=== PATIENT | male | born 1950 | race Caucasian/White ===

== ENCOUNTER 2017-12-22 09:52 | Outpatient (CLI) | payer MEDICARE ==
[2017-12-22 12:41] LABS: BASOPHILS % (AUTO) 0.9 %; EOSINOPHILS # (AUTO) 0.1 10^3/uL (0.0-0.7); EOSINOPHILS % (AUTO) 1.7 %; HGB - HEMOGLOBIN 15.4 g/dL (14.0-18.0); LYMPHOCYTES % (AUTO) 21.5 %; MEAN CORPUSCULAR HEMOGLOBIN 31.1 pg (27.0-31.0); MEAN CORPUSCULAR HGB CONC 34.1 g/dL (32.0-36.0); MEAN CORPUSCULAR VOLUME 91.1 fL (80.0-94.0); MEAN PLATELET VOLUME 8.4 fL (7.4-11.4); MONOCYTES # (AUTO) 0.3 10^3/uL (0.0-1.0); MONOCYTES % (AUTO) 6.9 %; NEUTROPHILS # (AUTO) 3.1 10^3/uL (1.5-6.6); PLT - PLATELET COUNT 185 10^3/uL (130-450); RED BLOOD COUNT 4.94 10^6/uL (4.70-6.10); WHITE BLOOD COUNT 4.6 x10^3/uL (4.8-10.8)
[2017-12-22 13:20] LABS: ALBUMIN 4.3 g/dL (3.2-5.5); ALBUMIN/GLOBULIN RATIO 1.6 (1.0-2.2); ALKALINE PHOSPHATASE 63 IU/L (42-121); ALT ALANINE AMINOTRANSFERASE 17 IU/L (10-60); AST ASPARTATE AMINOTRANSFERASE 26 IU/L (10-42); BUN - BLOOD UREA NITROGEN 11 mg/dL (6-20); CALCIUM 9.1 mg/dL (8.5-10.3); CARBON DIOXIDE - CO2 28 mmol/L (21-32); CHLORIDE 103 mmol/L (101-111); CHOL/HDL RATIO 3.7 (<5.0); CHOLESTEROL 186 mg/dL; CREATININE 0.9 mg/dL (0.6-1.2); GFR - MDRD 84 (>89); GLUCOSE 101 mg/dL (70-100); HDL CHOLESTEROL 50 mg/dL; LDL CHOLESTEROL,CALCULATED 118 mg/dL; LDL/HDL RATIO 2.4 (<3.6); SODIUM 139 mmol/L (135-145); VLDL CHOLESTEROL 18 mg/dL
== END 2017-12-22 09:53 | disposition home or self-care (01) ==
LOC: LAB.WCP 09:52
PROVIDERS: ATTEND Family Medicine
DX: E78.5 Hyperlipidemia, unspecified (principal); Z12.5 Encounter for screening for malignant neoplasm of prostate
CPT/HCPCS: 36415; 80053; 80061; 84443; 85025; G0103; 83721; 84153

== ENCOUNTER 2019-01-21 07:18 | Outpatient (CLI) | payer MEDICARE ==
[2019-01-21 12:38] LABS: EOSINOPHILS # (AUTO) 0.2 10^3/uL (0.0-0.7); HGB - HEMOGLOBIN 14.9 g/dL (14.0-18.0); LYMPHOCYTES # (AUTO) 1.2 10^3/uL (1.5-3.5); LYMPHOCYTES % (AUTO) 30.3 %; MEAN CORPUSCULAR HEMOGLOBIN 30.6 pg (27.0-31.0); MEAN CORPUSCULAR HGB CONC 32.5 g/dL (32.0-36.0); MEAN PLATELET VOLUME 10.3 fL (7.4-11.4); MONOCYTES # (AUTO) 0.4 10^3/uL (0.0-1.0); NEUTROPHILS # (AUTO) 2.2 10^3/uL (1.5-6.6); NEUTROPHILS % (AUTO) 54.7 %; PLT - PLATELET COUNT 183 10^3/uL (130-450); RED BLOOD COUNT 4.87 10^6/uL (4.70-6.10); RED CELL DISTRIBUTION WIDTH 12.3 % (12.0-15.0)
[2019-01-21 15:02] LABS: ALBUMIN 4.4 g/dL (3.2-5.5); ALBUMIN/GLOBULIN RATIO 1.7 (1.0-2.2); ALKALINE PHOSPHATASE 62 IU/L (42-121); ALT ALANINE AMINOTRANSFERASE 18 IU/L (10-60); AST ASPARTATE AMINOTRANSFERASE 28 IU/L (10-42); BUN - BLOOD UREA NITROGEN 17 mg/dL (6-20); CALCIUM 9.2 mg/dL (8.5-10.3); CARBON DIOXIDE - CO2 27 mmol/L (21-32); CHLORIDE 102 mmol/L (101-111); CHOL/HDL RATIO 3.5 (<5.0); CHOLESTEROL 210 mg/dL; CREATININE 0.9 mg/dL (0.6-1.2); GFR - MDRD 84 (>89); GLUCOSE 91 mg/dL (70-100); HDL CHOLESTEROL 60 mg/dL; LDL CHOLESTEROL,CALCULATED 138 mg/dL; LDL/HDL RATIO 2.3 (<3.6); SODIUM 140 mmol/L (135-145); VLDL CHOLESTEROL 12 mg/dL
== END 2019-01-21 23:59 | disposition home or self-care (01) ==
LOC: LAB.WCP 07:18
PROVIDERS: ATTEND Family Medicine
DX: E78.5 Hyperlipidemia, unspecified (principal); Z12.5 Encounter for screening for malignant neoplasm of prostate
CPT/HCPCS: 36415; 80061; G0103; 80053; 83721; 84153; 84443; 85025

== ENCOUNTER 2019-04-26 09:55 | Day surgery (SDC) | payer MEDICARE ==
[2019-04-26] MEDS ORDERED: LACTATED RINGERS 1,000 ML IV ONE (10:05)
[2019-04-26] MEDS ORDERED: LIDO GARGLE 30 ML BOTTLE ONE (11:27)
[2019-04-26] MEDS ORDERED: LIDO GARGLE 30 ML BOTTLE PO ONE (11:37)
[2019-04-26] MEDS ORDERED: MIDAZOLAM 2 MG/2 ML VIAL IVP ONE (11:39)
[2019-04-26] MEDS ORDERED: fentaNYL 250 MCG/5 ML VIAL IVP ONE (11:39)
[2019-04-26 13:19] VITALS: BP 120/81
== END 2019-04-26 09:56 | disposition home or self-care (01) ==
LOC: SDS 09:55
PROVIDERS: ATTEND Internal Medicine Gastroenterology
PROC: 0DB78ZX Excision of Stomach, Pylorus, Via Natural or Artificial Opening Endoscopic, Diagnostic (ICD-10-PCS; 2019-04-26)
PROC: 0DB18ZX Excision of Upper Esophagus, Via Natural or Artificial Opening Endoscopic, Diagnostic (ICD-10-PCS; 2019-04-26)
PROC: 0DB38ZX Excision of Lower Esophagus, Via Natural or Artificial Opening Endoscopic, Diagnostic (ICD-10-PCS; 2019-04-26)
PROC: 0DJD8ZZ Inspection of Lower Intestinal Tract, Via Natural or Artificial Opening Endoscopic (ICD-10-PCS; principal; 2019-04-26 11:30)
PROC: 0DB48ZX Excision of Esophagogastric Junction, Via Natural or Artificial Opening Endoscopic, Diagnostic (ICD-10-PCS; 2019-04-26 11:30)
DX: Z12.11 Encounter for screening for malignant neoplasm of colon (principal); R13.10 Dysphagia, unspecified; K57.30 Diverticulosis of large intestine without perforation or abscess without bleeding; Z86.010 Personal history of colon polyps; K29.50 Unspecified chronic gastritis without bleeding; I10 Essential (primary) hypertension; N40.1 Benign prostatic hyperplasia with lower urinary tract symptoms; Z87.891 Personal history of nicotine dependence
CPT/HCPCS: 43239; A9270; G0105; J3010; J7120

== ENCOUNTER 2019-08-04 13:48 | Outpatient (CLI) | payer MEDICARE ==
--- NOTE | 2019-08-04 22:34 | XRAY Report ---
Reason: SHORTNESS OF BREATH Procedure Date: 08/04/2019 Accession Number: [id number] / [id number] Procedure: WCP - Chest 2 View X-Ray CPT Code: 32331 Final Report FULL RESULT: EXAM: CHEST RADIOGRAPHY EXAM DATE: 08/04/2019 01:48 PM. CLINICAL HISTORY: SHORTNESS OF BREATH. COMPARISON: None. TECHNIQUE: 2 views. FINDINGS: Lungs/Pleura: A 12 mm nodule is seen projected over mid thoracic spine and left infrahilar location, further evaluation is recommended on CT chest with contrast. No focal opacities evident. No pleural effusion. No pneumothorax. Normal volumes. Mediastinum: Heart and mediastinal contours are unremarkable. Other: None. IMPRESSION: A 12 mm nodule projected over mid thoracic spine and left infrahilar location, further evaluation is recommended on CT chest with contrast. RADIA
== END 2019-08-04 13:49 | disposition home or self-care (01) ==
LOC: DI.WCP 13:48
PROVIDERS: ATTEND Family Medicine
DX: R06.02 Shortness of breath (principal); R93.89 Abnormal findings on diagnostic imaging of other specified body structures
CPT/HCPCS: 71046

== ENCOUNTER 2019-08-09 09:06 | Outpatient (CLI) | payer MEDICARE ==
[~2019-08-09 09:06] MED LIST: ALBUTEROL NEB 2.5 MG/3 ML INH SCH
== END 2019-08-09 09:07 | disposition home or self-care (01) ==
LOC: RT 09:06
PROVIDERS: ATTEND Family Medicine
DX: R06.02 Shortness of breath (principal); Z87.891 Personal history of nicotine dependence
CPT/HCPCS: 94060

== ENCOUNTER 2019-08-10 14:17 | Outpatient (CLI) | payer MEDICARE ==
--- NOTE | 2019-08-12 12:35 | CT Report ---
Reason: PULMONARY NODULE Procedure Date: 08/10/2019 Accession Number: [id number] / [id number] Procedure: CT - CHEST WO CPT Code: Final Report FULL RESULT: EXAM: CT CHEST EXAM DATE: 08/10/2019 03:05 PM. CLINICAL HISTORY: PULMONARY NODULE. COMPARISONS: CHEST 2 VIEW 08/04/2019 1:29 PM. TECHNIQUE: Routine helical CT imaging was performed through the chest. IV contrast: None. Reconstructions: Coronal and sagittal. In accordance with CT protocol optimization, one or more of the following dose reduction techniques were utilized for this exam: automated exposure control, adjustment of mA and/or KV based on patient size, or use of iterative reconstructive technique. FINDINGS: Lungs/Pleura: No nodules, bronchial thickening, consolidation, or edema. Pulmonary vasculature is normal. No pericardial or pleural effusion. No pneumothorax. Mild linear bilateral lower lobe atelectasis or scarring. Mediastinum: Normal. No adenopathy or masses. The heart and great vessels are normal. Bones: Left T8-T9 syndesmophyte with sclerosis corresponds to nodular density on recent chest x-ray. Minimal anterior wedging of T2 and T3 vertebral bodies involving superior endplates may be related to degenerative changes or remote compression fractures. No acute fracture. Vacuum phenomenon within T5-T6 disk space with tiny anterior endplate osteophyte. Visualized Abdomen: Left parapelvic renal cysts. No proximal ureteral dilatation. Small left liver lobe cysts. Atherosclerotic calcifications of the proximal abdominal aorta. Other: None. IMPRESSION: 1. Left paraspinal density on recent chest x-ray corresponds to a left-sided syndesmophyte. 2. No lung mass or suspicious nodule. RADIA
== END 2019-08-10 14:18 | disposition home or self-care (01) ==
LOC: DI 14:17
PROVIDERS: ATTEND Family Medicine
DX: M89.8X8 Other specified disorders of bone, other site (principal)
CPT/HCPCS: 71250

== ENCOUNTER 2019-08-16 12:52 | Emergency (ER) | payer MEDICARE ==
[2019-08-16 13:38] LABS: EOSINOPHILS % (AUTO) 0.5 %; HGB - HEMOGLOBIN 14.1 g/dL (14.0-18.0); LYMPHOCYTES # (AUTO) 0.8 10^3/uL (1.5-3.5); LYMPHOCYTES % (AUTO) 18.6 %; MEAN CORPUSCULAR HEMOGLOBIN 31.4 pg (27.0-31.0); MEAN CORPUSCULAR HGB CONC 33.4 g/dL (32.0-36.0); MEAN PLATELET VOLUME 9.1 fL (7.4-11.4); MONOCYTES # (AUTO) 0.5 10^3/uL (0.0-1.0); MONOCYTES % (AUTO) 11.9 %; NEUTROPHILS # (AUTO) 2.8 10^3/uL (1.5-6.6); NEUTROPHILS % (AUTO) 67.8 %; PLT - PLATELET COUNT 143 10^3/uL (130-450); RED BLOOD COUNT 4.49 10^6/uL (4.70-6.10); RED CELL DISTRIBUTION WIDTH 12.2 % (12.0-15.0); WHITE BLOOD COUNT 4.2 x10^3/uL (4.8-10.8)
[2019-08-16 13:52] LABS: ALBUMIN 4.3 g/dL (3.2-5.5); ALBUMIN/GLOBULIN RATIO 1.6 (1.0-2.2); BILIRUBIN,TOTAL 0.6 mg/dL (0.2-1.0); CALCIUM 8.9 mg/dL (8.5-10.3); CREATININE 0.9 mg/dL (0.6-1.2); MAGNESIUM 2.3 mg/dL (1.7-2.8)
[2019-08-16] MEDS ORDERED: IOVERSOL 320 100 ML VIAL IVP ONE ×2 (14:41→16:31)
--- NOTE | 2019-08-16 14:46 | ED Physician Documentation ---
PD HPI SYNCOPE - Stated complaint Stated Complaint: DIZZINESS/NAUSEA - Chief complaint Chief Complaint: Neuro - History obtained from History obtained from: Patient - History of Present Illness Witnessed: Unwitnessed Timing - onset: Last night Duration: Unknown Preceding symptoms: Vision changes, Diaphoresis, Nausea / vomiting, Light headed Associated symptoms: Nausea / vomiting Contributing factors: Other (recent travel) Injury occurred: None Similar symptoms before: Has not had sx before Recently seen: Clinic - Additional information Additional information: 68-year-old otherwise well male has had a recent trip to [place] on a plane he returned last night he was at his home sitting when he developed some nausea and felt lightheaded and dizzy and then woke up on the floor. He is uncertain how long he was there he does not seem to have injured himself with a fall. He does not remember a fall. He denies any specific shortness of breath or chest p ain he denies any current symptoms he is no longer nauseous he does have some pain in his left leg his varicose veins are more distended than usual and they are little bit tender. He has never had a DVT or pulmonary embolism before. He was asked by his doctor's office to come to the hospital for evaluation of pulmonary embolism. He has been recently into the doctor for cough and dyspnea and had a chest x-ray done followed by a CT scan. The chest x-ray showed a suspicious nodule this was found to be a syndesmophyte on CT scanning. There were no other findings on the CT scan. Review of Systems Constitutional: denies: Fever, Chills, Myalgias, Fatigue Eyes: denies: Decreased vision Ears: denies: Ear pain Nose: reports: Congestion. denies: Rhinorrhea / runny nose Throat: denies: Sore throat Cardiac: denies: Chest pain / pressure, Palpitations, Pedal edema, Calf pain Respiratory: reports: Dyspnea, Cough GI: denies: Abdominal Pain, Nausea, Vomiting, Constipation, Diarrhea : reports: Frequency. denies: Dysuria Skin: denies: Rash Musculoskeletal: denies: Neck pain, Back pain Neurologic: denies: Generalized weakness, Focal weakness, Numbness PD PAST MEDICAL HISTORY - Past Medical History Cardiovascular: Hypertension Respiratory: Pneumonia Endocrine/Autoimmune: None GI: Colon polyps, Hepatitis, Diverticulitis : Benign prostate hypertrophy Psych: None Musculoskeletal: None Derm: None - Past Surgical History HEENT: Rhinoplasty, Tonsil/Adenoidectomy - Allergies Allergies/Adverse Reactions: Allergies Allergy/AdvReac Type Severity Reaction Status Date / Time No Known Drug Allergies Allergy Verified 08/16/19 13:01 PD ED PE NORMAL - Vitals Vital signs reviewed: Yes (hypertnesive mild ) - General General: Alert and oriented X 3, No acute distress, Well developed/nourished - HEENT HEENT: Atraumatic, PERRL, EOMI - Neck Neck: Supple, no meningeal sign, No bony TTP - Cardiac Cardiac: RRR, No murmur - Respiratory Respiratory: No respiratory distress, Clear bilaterally - Abdomen Abdomen: Normal bowel sounds, Soft, Non tender, Non distended, No organomegaly - Back Back: No CVA TTP, No spinal TTP - Derm Derm: Normal color, Warm and dry, No rash - Extremities Extremities: No deformity, No tenderness to palpate, Normal ROM s pain, No edema, No calf tenderness / cord - Neuro Neuro: Alert and oriented X 3, 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 2-12 intact, No motor deficit, No sensory deficit, Normal speech Eye Opening: Spontaneous Motor: Obeys Commands Verbal: Oriented GCS Score: 15 - Psych Psych: Normal mood, Normal affect Results - Vitals Vitals: Vital Signs - 24 hr 08/16/19 08/16/19 13:01 15:05 Temperature 36.6 C Heart Rate 77 72 Respiratory 18 17 Rate Blood Pressure 142/88 H 139/84 H O2 Saturation 98 97 Oxygen O2 Source Room air - Labs Labs: Laboratory Tests 08/16/19 08/16/19 08/16/19 13:30 13:30 13:30 WBC 4.2 L RBC 4.49 L Hgb 14.1 Hct 42.2 MCV 94.0 MCH 31.4 H MCHC 33.4 RDW 12.2 Plt Count 143 MPV 9.1 Neut # (Auto) 2.8 Lymph # (Auto) 0.8 L [place] # (Auto) 0.5 Eos # (Auto) 0.0 Baso # (Auto) 0.0 Absolute Nucleated RBC 0.00 Nucleated RBC % 0.0 D-Dimer Sodium 141 Potassium 3.9 Chloride 103 Carbon Dioxide 27 Anion Gap 11.0 BUN 25 H Creatinine 0.9 Estimated GFR (MDRD) 84 L Glucose 97 Calcium 8.9 Magnesium 2.3 Total Bilirubin 0.6 AST 26 ALT 16 Alkaline Phosphatase 55 Troponin I High Sens 9.8 Total Protein 7.0 Albumin 4.3 Globulin 2.7 Albumin/Globulin Ratio 1.6 Lipase 38 08/16/19 13:30 WBC RBC Hgb Hct MCV MCH MCHC RDW Plt Count MPV Neut # (Auto) Lymph # (Auto) [place] # (Auto) Eos # (Auto) Baso # (Auto) Absolute Nucleated RBC Nucleated RBC % D-Dimer 353.8 H Sodium Potassium Chloride Carbon Dioxide Anion Gap BUN Creatinine Estimated GFR (MDRD) Glucose Calcium Magnesium Total Bilirubin AST ALT Alkaline Phosphatase Troponin I High Sens Total Protein Albumin Globulin Albumin/Globulin Ratio Lipase - Rads (name of study) chestCTA Radiology: Prelim report reviewed (Impression: 1. No pulmonary emboli. 2. Mild bronchial wall thickening.), EMP read indepedently, See rad report Procedures - IVC sono (time) 1433 Bedside IVC sono: IVC measures (cm) (1.76), IVC collapsed c insp (cm) (0.89), Euvolemia PD MEDICAL DECISION MAKING - ED course Complexity details: reviewed old records, reviewed results, re-evaluated patient, considered differential, d/w patient ED course: Previously well 68-year-old male presents to the emergency department with a syncopal episode and left leg tenderness after a plane flight yesterday. He has recovered from his syncopal episode and he arrives to the emergency department with stable vital signs and a normal physical examination with exception of some tenderness to the left calf and some engorgement of the varicose veins. He has an elevated d-dimer which is only mildly elevated he is not tachycardic or hypotensive. He appears otherwise well. CT angiogram of the chest is undertaken to rule out pulmonary embolism. There is no evidence of pulmonary embolism he does have a bit of a cold or bronchitis which he has had yearly and this is no different from his other years. He is not usually required antibiotic for that. His Syncope is attributed to a vasovagal episode. Departure - Departure Disposition: 01 Home, Self Care Clinical Impression: Bronchitis Syncope Qualifiers: Syncope type: vasovagal syncope Qualified Code(s): R55 - Syncope and collapse Condition: Stable Instructions: ED Bronchitis Asthmatic, ED Syncope Vasovagal Follow-Up: Bertha Dennis DO [Primary Care Provider] -
[2019-08-16 15:25] VITALS: BP 139/84
--- NOTE | 2019-08-16 16:48 | CT Report ---
Reason: dyspnea, pulmonary embolism suspected Procedure Date: 08/16/2019 Accession Number: [id number] / [id number] Procedure: CT - ANGIO CHEST W/WO CPT Code: Final Report FULL RESULT: EXAM: CT ANGIOGRAM CHEST EXAM DATE: 08/16/2019 04:11 PM. CLINICAL HISTORY: Dyspnea, recent flight. COMPARISON: CHEST W/O 08/10/2019 3:05 PM. TECHNIQUE: Routine helical imaging was performed through the chest in the pulmonary arterial phase. IV Contrast: 63 mL OPTIRAY 320. Reconstructions: Coronal 3-D MIP reconstructions. Sagittal and coronal. In accordance with CT protocol optimization, one or more of the following dose reduction techniques were utilized for this exam: automated exposure control, adjustment of mA and/or KV based on patient size, or use of iterative reconstructive technique. FINDINGS: Pulmonary Arteries: Diagnostic quality: Adequate through the segmental arteries. No evidence for acute or chronic pulmonary emboli. RV/LV is within normal limits. There is no interventricular septal bowing. There is no reflux of contrast material in the IVC. Lungs/Pleura: No consolidation, pleural effusion or pneumothorax. There is mild diffuse bronchial wall thickening. No significant mucus plugging. Mediastinum: The heart is normal in size. No pericardial effusion. No lymphadenopathy. Small hiatal hernia. Thoracic Aorta: Unremarkable. Upper Abdomen: Probable left renal parapelvic cysts. Other: None. IMPRESSION: 1. No pulmonary emboli. 2. Mild bronchial wall thickening. RADIA
== END 2019-08-16 17:14 | disposition home or self-care (01) ==
LOC: ED 12:52
DX: J40 Bronchitis, not specified as acute or chronic (principal); R55 Syncope and collapse; I10 Essential (primary) hypertension
CPT/HCPCS: 36415; 71275; 80053; 83690; 83735; 84484; 85025; 85379; 93005; 99283; 99284; Q9967

== ENCOUNTER 2019-10-19 15:54 | Emergency (ER) | payer MEDICARE ==
[2019-10-19 16:37] LABS: BASOPHILS # (AUTO) 0.1 10^3/uL (0.0-0.1); BASOPHILS % (AUTO) 1.4 %; EOSINOPHILS # (AUTO) 0.1 10^3/uL (0.0-0.7); EOSINOPHILS % (AUTO) 2.5 %; HGB - HEMOGLOBIN 14.9 g/dL (14.0-18.0); LYMPHOCYTES % (AUTO) 19.7 %; MEAN CORPUSCULAR HGB CONC 34.7 g/dL (32.0-36.0); MEAN CORPUSCULAR VOLUME 92.3 fL (80.0-94.0); MEAN PLATELET VOLUME 9.2 fL (7.4-11.4); MONOCYTES # (AUTO) 0.5 10^3/uL (0.0-1.0); MONOCYTES % (AUTO) 9.9 %; NEUTROPHILS # (AUTO) 3.2 10^3/uL (1.5-6.6); NEUTROPHILS % (AUTO) 66.3 %; PLT - PLATELET COUNT 189 10^3/uL (130-450); RED BLOOD COUNT 4.66 10^6/uL (4.70-6.10); RED CELL DISTRIBUTION WIDTH 12.3 % (12.0-15.0); WHITE BLOOD COUNT 4.9 x10^3/uL (4.8-10.8)
[2019-10-19 16:48] LABS: ALBUMIN 4.6 g/dL (3.2-5.5); BILIRUBIN,TOTAL 0.6 mg/dL (0.2-1.0); CREATININE 0.8 mg/dL (0.6-1.2); TOTAL PROTEIN 6.9 g/dL (6.7-8.2)
[2019-10-19] MEDS ORDERED: IPRATROPIUM/ALBUTEROL 3 ML NEB INH STA (16:54)
--- NOTE | 2019-10-19 17:03 | ED Physician Documentation ---
History of Present Illness - Stated complaint Stated Complaint: NAUSEA/SHORT OF BREATH - Chief complaint Chief Complaint: General - History obtained from History obtained from: Patient - History of Present Illness Timing: Today Pain level max: 0 Pain level now: 0 - Additonal information Additional information: Patient states he has had nausea for the past several weeks. Nothing makes it better or worse. He also feels short of breath. He used to smoke but quit [address] ago[address] Had a [address] pulmonary angiogram recently which showed mild inflammation in his bronchials. No blood clots. The symptoms have not changed significantly since that time. He was also recently started on Prilosec for GERD. He states sometimes he has difficulty swallowing. He mainly complains of nausea from "his head to his thighs." Review of Systems Constitutional: denies: Fever, Chills Nose: denies: Rhinorrhea / runny nose, Congestion Respiratory: reports: Dyspnea, Wheezing. denies: Cough, Hemoptysis GI: denies: Vomiting, Diarrhea Skin: denies: Rash Musculoskeletal: denies: Neck pain, Back pain Neurologic: denies: Headache PD PAST MEDICAL HISTORY - Past Medical History Cardiovascular: Hypertension Respiratory: Pneumonia Endocrine/Autoimmune: None GI: Colon polyps, Hepatitis, Diverticulitis : Benign prostate hypertrophy Psych: None Musculoskeletal: None Derm: None - Past Surgical History Past Surgical History: Yes HEENT: Rhinoplasty, Tonsil/Adenoidectomy - Present Medications Home Medications: Ambulatory Orders Medication Instructions Recorded Confirmed LORazepam [Ativan] 0.5 mg PO Q6H PRN #7 tablet 10/19/19 Ondansetron Odt [Zofran] 4 mg TL Q6H PRN #10 tablet 10/19/19 Sucralfate [Carafate] 1 gm PO ACHS #60 tablet 10/19/19 - Allergies Allergies/Adverse Reactions: Allergies Allergy/AdvReac Type Severity Reaction Status Date / Time No Known Drug Allergies Allergy Verified 08/16/19 13:01 - Social History Does the pt smoke?: No Smoking Status: Never smoker Does the pt drink ETOH?: No Does the pt have substance abuse?: No - Immunizations Immunizations are current?: Yes - POLST Patient has POLST: No PD ED PE NORMAL - Vitals Vital signs reviewed: Yes - General General: Alert and oriented X 3, No acute distress - HEENT HEENT: Moist mucous membranes - Neck Neck: Supple, no meningeal sign - Cardiac Cardiac: RRR - Respiratory Respiratory: No respiratory distress, Other (Mild wheezing and expiratory) - Abdomen Abdomen: Soft, Non tender, Non distended - Derm Derm: Warm and dry, No rash - Extremities Extremities: No edema - Neuro Neuro: Alert and oriented X 3 - Psych Psych: Normal mood, Normal affect Results - Vitals Vitals: Vital Signs - 24 hr 10/19/19 10/19/19 16:00 17:10 Temperature 36.5 C Heart Rate 73 68 Respiratory 20 18 Rate Blood Pressure 165/83 H O2 Saturation 100 Oxygen O2 Source Room air - EKG (time done) 1648 Rate: Rate (enter#) (70) Rhythm: NSR [place]: LAD, Anterior hemiblock (LAFB) Intervals: Prolonged CT QRS: Normal Ischemia: Normal ST segments - Labs Labs: Laboratory Tests 10/19/19 10/19/19 10/19/19 16:31 16:31 16:31 WBC 4.9 RBC 4.66 L Hgb 14.9 Hct 43.0 MCV 92.3 MCH 32.0 H MCHC 34.7 RDW 12.3 Plt Count 189 MPV 9.2 Neut # (Auto) 3.2 Lymph # (Auto) 1.0 L [place] # (Auto) 0.5 Eos # (Auto) 0.1 Baso # (Auto) 0.1 Absolute Nucleated RBC 0.00 Nucleated RBC % 0.0 Sodium 134 L Potassium 3.6 Chloride 98 L Carbon Dioxide 28 Anion Gap 8.0 BUN 12 Creatinine 0.8 Estimated GFR (MDRD) 96 Glucose 118 H Calcium 9.0 Total Bilirubin 0.6 AST 24 ALT 17 Alkaline Phosphatase 70 Troponin I High Sens 5.9 Total Protein 6.9 Albumin 4.6 Globulin 2.3 Albumin/Globulin Ratio 2.0 Lipase 32 - Rads (name of study) cxr Radiology: Prelim report reviewed, EMP read contemporaneously, See rad report (No acute abnormality) PD MEDICAL DECISION MAKING - ED course Complexity details: reviewed results, re-evaluated patient, considered differential (No ST elevation OR, no aortic dissection, no PE, no tension pneumothorax, no aortic aneurysm), d/w patient ED course: Patient feels better after nebulizer treatment and is breathing easier. Will place on inhaler for home. We will have him continue the Prilosec as well. Will prescribe Zofran for nausea. Ativan seemed to help him as well. Patient is well-appearing, nontoxic. Afebrile. No hypoxia. No respiratory distress. Patient counseled regarding signs and symptoms for which I believe and urgent re-evaluation would be necessary. Patient with good understanding of and agreement to plan and is comfortable going home at this time This document was made in part using voice recognition software. While efforts are made to proofread this document, sound alike and grammatical errors may occur. Patient states that he has an albuterol inhaler at home. A spacer was given here for him. Departure - Departure Disposition: Home, Self Care Clinical Impression: Wheezing, Nausea Condition: Good Instructions: ED Wheezing, ED Nausea Vomiting Follow-Up: Raji Haywood MD [Primary Care Provider] - Within 1 week Prescriptions: LORazepam [Ativan] 0.5 mg PO Q6H PRN #7 tablet PRN Reason: Nausea / Vomiting Ondansetron Odt [Zofran] 4 mg TL Q6H PRN #10 tablet PRN Reason: Nausea / Vomiting Sucralfate [Carafate] 1 gm PO ACHS #60 tablet Comments: Return if you worsen. Follow-up with your doctor for further care. Your heart tests are normal today. Make sure to use the albuterol you were given previously from your doctor with the spacer as this will help your breathing. You may need an endoscopy as well. Do not drive or operate heavy machinery while taking the Ativan.
--- NOTE | 2019-10-19 17:17 | XRAY Report ---
Reason: Chest Pain Procedure Date: 10/19/2019 Accession Number: [id number] / [id number] Procedure: XR - Chest 1 View X-Ray CPT Code: 46641 Final Report FULL RESULT: EXAM: CHEST RADIOGRAPHY EXAM DATE: 10/19/2019 04:41 PM. CLINICAL HISTORY: Chest Pain. COMPARISON: CHEST 2 VIEW 08/04/2019 1:29 PM CHEST ANGIO 08/16/2019 4:10 PM. TECHNIQUE: 1 view. FINDINGS: Lungs/Pleura: No focal opacities evident. No pleural effusion. No pneumothorax. Mediastinum: Within exam limitations, the cardiomediastinal contour is normal. Other: Contrast is noted in the stomach region presumably from recent barium study. IMPRESSION: No cardiopulmonary abnormality demonstrated. RADIA
[2019-10-19] MEDS ORDERED: FAMOTIDINE 20 MG TABLET PO STA (17:40)
[2019-10-19] MEDS ORDERED: MAG HYDROX/AL HYDROX/SIMETH 30 ML UDC PO STA (17:40)
[2019-10-19] MEDS ORDERED: SUCRALFATE 1 GM/10 ML UDC PO STA (17:40)
[2019-10-19] MEDS ORDERED: LIDOCAINE VISCOUS 2% 15 ML UDC MM STA (17:42)
[2019-10-19] MEDS ORDERED: ONDANSETRON ODT 4 MG TABLET TL STA (17:46)
[2019-10-19] MEDS ORDERED: LORazepam 0.5 MG TABLET PO STA (18:12)
[2019-10-19 18:57] VITALS: BP 127/83
== END 2019-10-19 18:58 | disposition home or self-care (01) ==
LOC: ED 15:54
DX: R06.2 Wheezing (principal); R11.0 Nausea; K21.9 Gastro-esophageal reflux disease without esophagitis; Z87.891 Personal history of nicotine dependence
CPT/HCPCS: 36415; 71045; 80053; 83690; 84484; 85025; 93005; 94640; 94664; 99284; A9270; Q0162

== ENCOUNTER 2020-02-29 08:19 | Outpatient (CLI) | payer MEDICARE ==
[2020-02-29 12:07] LABS: BASOPHILS % (AUTO) 1.2 %; EOSINOPHILS # (AUTO) 0.1 10^3/uL (0.0-0.7); EOSINOPHILS % (AUTO) 2.8 %; HGB - HEMOGLOBIN 13.5 g/dL (14.0-18.0); LYMPHOCYTES # (AUTO) 0.8 10^3/uL (1.5-3.5); LYMPHOCYTES % (AUTO) 25.2 %; MEAN CORPUSCULAR HEMOGLOBIN 31.9 pg (27.0-31.0); MEAN CORPUSCULAR HGB CONC 33.6 g/dL (32.0-36.0); MEAN PLATELET VOLUME 10.9 fL (7.4-11.4); MONOCYTES # (AUTO) 0.3 10^3/uL (0.0-1.0); MONOCYTES % (AUTO) 8.3 %; NEUTROPHILS % (AUTO) 62.5 %; PLT - PLATELET COUNT 182 10^3/uL (130-450); RED BLOOD COUNT 4.23 10^6/uL (4.70-6.10); RED CELL DISTRIBUTION WIDTH 12.2 % (12.0-15.0); WHITE BLOOD COUNT 3.3 x10^3/uL (4.8-10.8)
[2020-02-29 12:26] LABS: ALBUMIN 4.4 g/dL (3.2-5.5); ALBUMIN/GLOBULIN RATIO 1.7 (1.0-2.2); ALKALINE PHOSPHATASE 73 IU/L (42-121); ALT ALANINE AMINOTRANSFERASE 20 IU/L (10-60); AST ASPARTATE AMINOTRANSFERASE 28 IU/L (10-42); BILIRUBIN,TOTAL 0.8 mg/dL (0.2-1.0); BUN - BLOOD UREA NITROGEN 22 mg/dL (6-20); CALCIUM 9.1 mg/dL (8.5-10.3); CARBON DIOXIDE - CO2 30 mmol/L (21-32); CHLORIDE 104 mmol/L (101-111); CHOL/HDL RATIO 3.3 (<5.0); CHOLESTEROL 173 mg/dL; GLUCOSE 94 mg/dL (70-100); HDL CHOLESTEROL 52 mg/dL; LDL CHOLESTEROL,CALCULATED 109 mg/dL; LDL/HDL RATIO 2.1 (<3.6); SODIUM 139 mmol/L (135-145); VLDL CHOLESTEROL 12 mg/dL
== END 2020-02-29 23:59 | disposition home or self-care (01) ==
LOC: LAB.WCP 08:19
PROVIDERS: ATTEND Family Medicine
DX: I10 Essential (primary) hypertension (principal); E78.5 Hyperlipidemia, unspecified; D12.6 Benign neoplasm of colon, unspecified; N40.1 Benign prostatic hyperplasia with lower urinary tract symptoms; N13.8 Other obstructive and reflux uropathy
CPT/HCPCS: 36415; 80053; 80061; 83721; 84443; 85025

== ENCOUNTER 2020-04-18 08:00 | Outpatient (CLI) | payer MEDICARE ==
[2020-04-19 13:28] LABS: HEPATITIS C ANTIBODY REACTIVE (NON-REACTIVE)
[2020-04-19 13:29] LABS: HEPATITIS B SURFACE ANTIGEN NON-REACTIVE (NON-REACTIVE)
== END 2020-04-18 23:59 | disposition home or self-care (01) ==
LOC: LAB.WCP 08:00
PROVIDERS: ATTEND Family Medicine
DX: Z86.19 Personal history of other infectious and parasitic diseases (principal)
CPT/HCPCS: 36415; 86317; 86704; 86803; 87340; 87522; 87902

== ENCOUNTER 2020-06-01 15:15 | Outpatient (CLI) | payer MEDICARE ==
--- NOTE | 2020-06-01 15:17 | XRAY Report ---
PROCEDURE: Chest 2 View X-Ray INDICATIONS: PAINFUL BREATHING TECHNIQUE: 2 view(s) of the chest. COMPARISON: None. FINDINGS: Surgical changes and devices: None. Lungs and pleura: No pleural effusions or pneumothorax. Lungs are clear. Mediastinum: Mediastinal contours are normal. Heart size is normal. Bones and chest wall: No suspicious bony abnormalities. Soft tissues appear unremarkable. IMPRESSION: No acute process. Reviewed by: Jesse Peter MD on 06/01/2020 3:15 PM PST Approved by: Jesse Peter MD on 06/01/2020 3:15 PM PST Station ID: [id number]
== END 2020-06-01 23:59 | disposition home or self-care (01) ==
LOC: DI.N 15:15
PROVIDERS: ATTEND Physician Assistant Medical
DX: R07.1 Chest pain on breathing (principal)

== ENCOUNTER 2020-07-03 15:35 | Emergency (ER) | payer MEDICARE ==
[2020-07-03 16:28] LABS: BASOPHILS % (AUTO) 0.3 %; EOSINOPHILS % (AUTO) 0.1 %; HCT - HEMATOCRIT 43.5 % (42.0-52.0); HGB - HEMOGLOBIN 14.3 g/dL (14.0-18.0); LYMPHOCYTES # (AUTO) 0.3 10^3/uL (1.5-3.5); LYMPHOCYTES % (AUTO) 2.5 %; MEAN CORPUSCULAR HGB CONC 32.9 g/dL (32.0-36.0); MEAN CORPUSCULAR VOLUME 94.4 fL (80.0-94.0); MEAN PLATELET VOLUME 9.8 fL (7.4-11.4); MONOCYTES # (AUTO) 0.3 10^3/uL (0.0-1.0); MONOCYTES % (AUTO) 2.2 %; NEUTROPHILS # (AUTO) 12.1 10^3/uL (1.5-6.6); NEUTROPHILS % (AUTO) 94.7 %; PLT - PLATELET COUNT 267 10^3/uL (130-450); RED BLOOD COUNT 4.61 10^6/uL (4.70-6.10); RED CELL DISTRIBUTION WIDTH 11.9 % (12.0-15.0); WHITE BLOOD COUNT 12.8 x10^3/uL (4.8-10.8)
--- NOTE | 2020-07-03 16:33 | XRAY Report ---
PROCEDURE: Chest 1 View X-Ray INDICATIONS: Chest Pain TECHNIQUE: One view of the chest was acquired. COMPARISON: 06/01/2020 FINDINGS: Surgical changes and devices: None. Lungs and pleura: No pleural effusions or pneumothorax. Lungs are clear. Mediastinum: Mediastinal contours appear normal. Heart size is normal. Bones and chest wall: No suspicious bony lesions. Overlying soft tissues appear unremarkable. IMPRESSION: No acute cardiopulmonary pathology. Reviewed by: Hardeep Leonard MD on 07/03/2020 4:32 PM [facility] Approved by: Hardeep Leonard MD on 07/03/2020 4:32 PM [facility] Station ID: [id number]
[2020-07-03 16:40] LABS: ALBUMIN 4.4 g/dL (3.2-5.5); ALBUMIN/GLOBULIN RATIO 1.3 (1.0-2.2); BILIRUBIN,TOTAL 0.5 mg/dL (0.2-1.0); CALCIUM 9.4 mg/dL (8.5-10.3); CREATININE 0.9 mg/dL (0.6-1.2); POTASSIUM 4.3 mmol/L (3.5-5.0); TOTAL PROTEIN 7.7 g/dL (6.7-8.2)
--- NOTE | 2020-07-03 17:20 | ED Physician Documentation ---
PD HPI CHEST PAIN - Stated complaint Stated Complaint: SOA - Chief complaint Chief Complaint: Cardiac - History obtained from History obtained from: Patient - History of Present Illness Timing - onset: How many weeks ago (several weeks of chest pain and pressure, noted mainly when lying down and improved with eating and antacids. Seeing GI on the for manometry. Not improved with increased Prilosec doses. Off PPI now for test next week. Seen in Urgent Care and referred to ER for eval of possible heart related.) Timing - onset during: Sleep (notes the discomfort mostly at night despite elevated head of bed.), Rest Timing - duration: Weeks Timing - details: Intermittant, Waxing and waning Quality: Tightness, Aching Location: Substernal, Epigastric Radiation: No: Jaw, Neck Improved by: Antacids, Other (sitting up and walking) Worsened by: Position. No: Exertion Associated symptoms: Shortness of air, Nausea, Cough. No: Feeling faint / dizzy Similar symptoms before: No diagnosis (presumed GERD and nocturnal aspiration) Recently seen: Clinic Review of Systems Constitutional: denies: Fever, Chills Nose: denies: Rhinorrhea / runny nose, Congestion Throat: denies: Sore throat Respiratory: denies: Cough GI: reports: Nausea. denies: Vomiting, Constipation, Diarrhea, Bloody / black stool : denies: Dysuria Skin: denies: Rash Musculoskeletal: denies: Extremity swelling Neurologic: denies: Generalized weakness, Near syncope PD PAST MEDICAL HISTORY - Past Medical History Cardiovascular: Hypertension Respiratory: Pneumonia Endocrine/Autoimmune: None GI: Colon polyps, Hepatitis, Diverticulitis : Benign prostate hypertrophy Psych: None Musculoskeletal: None Derm: None - Past Surgical History Past Surgical History: Yes HEENT: Rhinoplasty, Tonsil/Adenoidectomy - Present Medications Home Medications: Ambulatory Orders Medication Instructions Recorded Confirmed LORazepam [Ativan] 0.5 mg PO Q6H PRN #7 tablet 10/19/19 Ondansetron Odt [Zofran] 4 mg TL Q6H PRN #10 tablet 10/19/19 Sucralfate [Carafate] 1 gm PO ACHS #60 tablet 10/19/19 Ondansetron Odt [Zofran] 4 mg TL Q6H PRN #10 tablet 07/03/20 Sucralfate [Carafate] 1 gm PO BID #20 tablet 07/03/20 - Allergies Allergies/Adverse Reactions: Allergies Allergy/AdvReac Type Severity Reaction Status Date / Time No Known Drug Allergies Allergy Verified 07/03/20 15:44 - Social History Does the pt smoke?: No Smoking Status: Never smoker Does the pt drink ETOH?: No Does the pt have substance abuse?: No - Immunizations Immunizations are current?: Yes - POLST Patient has POLST: No PD ED PE NORMAL - Vitals Vital signs reviewed: Yes - General General: Alert and oriented X 3, No acute distress, Well developed/nourished - HEENT HEENT: Pharynx benign - Neck Neck: Supple, no meningeal sign, No adenopathy - Cardiac Cardiac: RRR, No murmur - Respiratory Respiratory: Clear bilaterally - Abdomen Abdomen: Soft, Non distended, Other (mild epigastric tenderness) - Derm Derm: Normal color, Warm and dry - Extremities Extremities: No deformity, No tenderness to palpate, No edema, No calf tenderness / cord - Neuro Neuro: Alert and oriented X 3, No motor deficit, Normal speech Results - Vitals Vitals: Vital Signs - 24 hr 07/03/20 07/03/20 15:44 17:11 Temperature 36.9 C Heart Rate 80 86 Respiratory 18 18 Rate Blood Pressure 144/89 H 143/91 H O2 Saturation 100 100 Oxygen O2 Source Room air - EKG (time done) 15:54 Rate: Rate (enter#) (79) Rhythm: NSR [place]: Normal Intervals: Normal [place] QRS: Normal, LVH Ischemia: Normal ST segments. No: ST elevation c/w ischemia, ST depression - Labs Labs: Laboratory Tests 07/03/20 07/03/20 07/03/20 16:21 16:21 16:21 WBC 12.8 H RBC 4.61 L Hgb 14.3 Hct 43.5 MCV 94.4 H MCH 31.0 MCHC 32.9 RDW 11.9 L Plt Count 267 MPV 9.8 Neut # (Auto) 12.1 H Lymph # (Auto) 0.3 L [place] # (Auto) 0.3 Eos # (Auto) 0.0 Baso # (Auto) 0.0 Absolute Nucleated RBC 0.00 Nucleated RBC % 0.0 D-Dimer Sodium 141 Potassium 4.3 Chloride 103 Carbon Dioxide 28 Anion Gap 10.0 BUN 26 H Creatinine 0.9 Estimated GFR (MDRD) 83 L Glucose 130 H Calcium 9.4 Total Bilirubin 0.5 AST 21 ALT 17 Alkaline Phosphatase 90 Troponin I High Sens 3.1 Total Protein 7.7 Albumin 4.4 Globulin 3.3 Albumin/Globulin Ratio 1.3 Lipase 31 07/03/20 16:21 WBC RBC Hgb Hct MCV MCH MCHC RDW Plt Count MPV Neut # (Auto) Lymph # (Auto) [place] # (Auto) Eos # (Auto) Baso # (Auto) Absolute Nucleated RBC Nucleated RBC % D-Dimer < 200.0 L Sodium Potassium Chloride Carbon Dioxide Anion Gap BUN Creatinine Estimated GFR (MDRD) Glucose Calcium Total Bilirubin AST ALT Alkaline Phosphatase Troponin I High Sens Total Protein Albumin Globulin Albumin/Globulin Ratio Lipase - Rads (name of study) chest xray Radiology: Prelim report reviewed (no acute process. Normal heart size. ), See rad report PD MEDICAL DECISION MAKING - ED course Complexity details: reviewed results, considered differential, d/w patient Departure - Departure Disposition: Home, Self Care Clinical Impression: Chest discomfort Reflux esophagitis Qualifiers: Esophagitis bleeding: without hemorrhage Qualified Code(s): K21.00 - Gastro- esophageal reflux disease with esophagitis, without bleeding Condition: Stable Record reviewed to determine appropriate education?: Yes Instructions: ED GERD Follow-Up: Bertha Dennis DO [Primary Care Provider] - Prescriptions: Sucralfate [Carafate] 1 gm PO BID #20 tablet Ondansetron Odt [Zofran] 4 mg TL Q6H PRN #10 tablet PRN Reason: Nausea / Vomiting Comments: Continue usual medications. Follow the instructions per your field traffic investigator for your visit next week. Meanwhile you can use some Zofran entheses ondansetron) every 6 hours if needed for nausea. Sucralfate to coat the esophagus and stomach after dinnertime and before bed regularly. Hold it the day before your GI visit. Tylenol if needed for pains. Otherwise follow-up with your primary care and gastroenterology. Your test today show no signs of heart attack nor blood clots nor pneumonia nor fluid around the lungs. Discharge Date/Time: 07/03/20 18:14
[2020-07-03 17:25] VITALS: BP 143/91
--- OUTSIDE RECORDS SUMMARY | 2020-07-11 00:24 | EXTERNAL MEDICAL SUMMARY RPT | Continuity of Care Document ---
:1950 Demographics Phone Unavailable Preferred Language Korean Marital Status Unknown Sikhism Affiliation Unknown Race Unknown Ethnic Group Unknown Author Organization [place] Address [address] [id number] Phone Care Team Providers Name Role Phone DO Unavailable Unavailable Scheidt Unavailable Unavailable [facility] Unavailable Unavailable Problems date description facility 2020-04-18 00:00 PERSONAL HISTORY [facility] PARASITIC [facility]EASES 2020-04-18 00:00:00 Hepatitis B Core Antibody, IgM [facility] Primary Care (anti-HBc, IgM) [facility] 2020-04-18 00:00:00 Hepatitis B Surface Antibody [facility] Primary Care [facility] 2020-04-18 00:00:00 Hepatitis C Ab [facility] ajit [facility] 2020-04-18 00:00:00 Hepatitis B Surface Antigen [facility] Primary Care [facility] 2020-04-18 00:00:00 Hepatitis C Virus (HCV) RNA, [facility] Primary Care Qualtitative by PCR [facility] 2020-04-18 00:00:00 Hepatitis C Virus (HCV) [facility] Primary Care Genotyping [facility] 2020-04-18 00:00:00 Other seborrheic keratosis [facility] [place] [facility] 2020-04-18 00:00:00 Health-related behavior [facility] Primary Care [facility] 2020-04-18 00:00:00 Tobacco use and exposure [facility] Primary [place] [facility] 2020-04-18 00:00:00 Exercise [facility] ajit [facility] 2020-04-18 00:00:00 Details of drug misuse behavior [facility] Primary [place] [facility] 2020-04-18 00:00:00 Senile hyperkeratosis [facility] [place] [facility] 2020-04-18 00:00:00 Alcohol use [facility] Prim ajit [facility] 2020-04-18 00:00:00 Tobacco smoking status [facility] [place] [facility] 2020-04-18 00:00:00 Total [facility] [place] [facility] 2020-04-18 00:00:00 [facility] [place] [facility] 2020-04-18 08:00 PERSONAL HISTORY [facility] INFECTIOUS AND PARASITIC DISEASES 2020-04-24 00:00:00 Other and unspecified [facility] nonspecific immunological [place] [facility] findings 2020-04-24 00:00:00 Raised antibody titer [facility] [place] [facility] 2020-04-24 00:00:00 Hepatitis C antibody test [facility] Primary Care positive [place] [facility] 2020-06-01 00:00:00 Pneumonia, organism unspecified idb [facility] Primary Care [place] [facility] 2020-06-01 00:00:00 [facility]ST 2 V[facility] [place] [facility] 2020-06-01 00:00:00 Pneumonia, unspecified organism idb [facility] Primary Care [place] [facility] 2020-06-01 00:00:00 [facility] [place] [facility] 2020-06-01 00:00:00 [facility] [place] [facility] 2020-06-01 00:00:00 Tobacco use and exposure [facility] Primary [place] [facility] 2020-06-01 00:00:00 [facility] [place] [facility] 2020-06-01 00:00:00 Details of drug misuse behavior idb [facility] Primary Care [place] [facility] 2020-06-01 00:00:00 [facility] [place] [facility] 2020-06-01 00:00:[address] [facility] [place] [facility] 2020-06-01 00:00:00 Total score? [facility] [place] [facility] 2020-06-01 00:00:00 [facility] [place] [facility] 2020-06-01 15:15 CHEST PAIN ON BREATHING [facility] 2020-06-25 00:00:00 Health-related behavior [facility] [place] [facility] 2020-06-25 00:00:00 Tobacco use and exposure [facility] 2020-06-25 00:00:00 Exercise [facility] ajit Care [facility] 2020-06-25 00:00:00 Details of drug misuse behavior idb [facility] Primary Care [facility] 2020-06-25 00:00:00 [facility] 2020-06-25 00:00:[address] [facility] 2020-06-25 00:00:00 Total score? [facility] 2020-06-25 00:00:00 Former smoker [facility] 2020-07-02 00:00:00 Chronic airway obstruction, not idb [facility] Primary Care elsewhere classified [facility] 2020-07-02 00:00:00 Chronic obstructive pulmonary [facility] disease, unspecified [facility] 2020-07-02 00:00:00 Chronic [facility] 2020-07-02 00:00:00 Health[facility]related behavior [facility] 2020-07-02 00:00:00 Tobacco use and exposure [facility] 2020-07-02 00:00:00 [facility] 2020-07-02 00:00:00 Details of drug misuse behavior idb [facility] Primary Care [facility] 2020-07-02 00:00:00 Alcohol use [facility] ajit [facility] 2020-07-02 00:00:00 Tobacco smoking status [facility] 2020-07-02 00:00:00 Total score? [facility] 2020-07-02 00:00:00 Former smoker [facility] Prim ajit Care [place] [facility] 2020-07-03 00:00:00 Other chest pain [facility] Prim [facility] 2020-07-03 00:00:00 Atypical chest pain [facility] 2020-07-03 15:35 ESSENTIAL (PRIMARY) [facility] HYPERTENSION 2020-07-03 15:35 GASTRO-ESOPHAGEAL REFLUX DIS [facility] WITH ESOPHAGITIS, WIT 2020-07-03 15:35 CHEST PAIN, UNSPECIFIED [facility] Allergies date description facility ADHESIVE \T\ TAPE [facility] BEE VENOM [facility] CODEINE [facility] LATANOPROST [facility] METFORMIN [facility] MORPHINE SULFATE [facility] MORPHINE [facility] SULFAMETHAZINE [facility] NO KNOWN ENVIRONMENTAL ALLERGIES [facility] SULFA ANTIBIOTICS [facility] CEFACLOR [facility] CONTRAST MEDIUM [facility] TOLMETIN [facility] PENICILLINS [facility] NO KNOWN ALLERGIES [facility] ASPARTAME [facility] FOOD [facility] STRAWBERRY [facility]INE [facility] CODE[facility] PENICILLIN [facility] CEFUROXIME AXETIL [facility] CIPROFLOXACIN [facility] AMOXICILLIN [facility] CEFDINIR [facility] No Known Drug Allergies [facility] AMOXICILLIN [facility] NO KNOWN ENVIRONMENTAL ALLERGIES [facility] NO ALLERGY INFORMATION AVAILABLE [facility] NO KNOWN ALLERGIES [facility] SHELLFISH CONTAINING PRODUCTS [facility] PREGABALIN [facility] CODEINE [facility] No Known Drug Allergies [facility] Medications date description facility 2020-04-18 00:00:00 Patient decision [facility] [place] [facility] 2020-04-18 00:00:00 null [facility] [place] [facility] 2020-04-18 00:00:00 null [facility] [place] [facility] 2020-04-18 00:00:00 null [facility] [place] [facility] 2020-04-18 00:00:00 Procedure refused [facility] [place] [facility] 2020-04-18 00:00:00 null [facility] [place] [facility] 2020-06-25 00:00:00 null [facility] [place] [facility] 2020-06-25 00:00:00 null [facility] [place] [facility] 2020-06-25 00:00:00 null [facility] [place] [facility] 2020-06-25 00:00:00 null [facility] [place] [facility] 2020-06-25 00:00:00 FLUTICASONE-SALMETEROL [facility] [place] [facility] 2020-06-25 00:00:00 LEVOFLOXACIN [facility] [place] [facility] 2020-06-25 00:00:00 LEVOFLOXACIN [facility] [place] [facility] 2020-06-25 00:00:00 FLUTICASONE-SALMETEROL [facility] [place] [facility] 2020-07-02 00:00:00 null [facility] [place] [facility] 2020-07-02 00:00:00 null [facility] aj[facility] [place] [facility] 2020-07-02 00:00:00 PREDNISONE [facility] [place] [facility] 2020-07-02 00:00:00 PREDNISONE [facility] [place] [facility] 2020-07-04 00:00:00 null [facility] [place] [facility] 2020-07-04 00:00:00 null [facility] [place] [facility] 2020-07-04 00:00:00 [facility] [place] [facility] 2020-07-04 00:00:00 null [facility] [place] [facility] 2020-07-04 00:00:00 SUCRALFATE [facility] [place] [facility] 2020-07-04 00:00:00 ONDANSETRON TBDP [facility] [place] [facility] 2020-07-04 00:00:00 ONDANSETRON TBDP [facility] [place] [facility] 2020-07-04 00:00:00 SUCRALFATE [facility] [place] [facility] 2020-07-08 00:00:00 null [facility] [place] [facility] 2020-07-08 00:00:00 [facility] [place] [facility] 2020-07-08 00:00:00 LORAZEPAM [facility] [place] [facility] 2020-07-08 00:00:00 L[facility]AZEPAM [facility] [place] [facility] Procedures date description facility 2020-04-18 00:00:00 Hepatitis B Core Antibody, IgM [facility] (anti-HBc, IgM) [place] [facility] date description facility 2020-04-18 00:00:00 Hepatitis B Surface Antibody [facility] Primary Care [place] [facility] date description facility 2020-04-18 00:00:00 [facility] [place] [facility] date description facility 2020-04-18 00:00:00 Hepatitis B Surface Antigen [facility] Primary Care [place] [facility] date description facility 2020-04-18 00:00:00 Hepatitis C Virus (HCV) RNA, [facility] Qualtitative by PCR [place] [facility] date description facility 2020-04-18 00:00:00 Hepatitis C Virus (HCV) [facility] Care Genotyping [place] [facility] date description facility 2020-04-18 00:00:00 First Ix admin via ID IM or [facility] Primary Care jet injects with counseling by [place] [facility] physician for adult date description facility 2020-04-18 00:00:00 Pneumovax 23 Injection [facility] Injectable 25 MCG/0.5ML [place] [facility] date description facility 2020-04-18 00:00:00 [facility] [place] [facility] date description facility 2020-06-01 00:00:00 CHEST 2 VIEW [facility] [place] [facility] date description facility 2020-06-01 00:00:00 Dexamethasone Sodium Phosphate [facility] Inj 10mg/1mL [place] [facility] date description facility 2020-06-01 00:00:00 Med Administration [facility] aj[facility] Care (PO-SL-IN-[place]) [place] [facility] date description facility 2020-06-01 00:00:00 [facility] [place] [facility] date description facility 2020-07-03 00:00:00 EKG Office Complete [facility] Alison harini [facility] [place] [facility] date description facility 2020-07-03 00:00:00 [facility] [place] [facility] Results Social History date description facility 2020-04-18 00:00:00 [facility] [place] [facility] date description facility 2020-06-01 00:00:00 [facility] [place] [facility] date description facility 2020-06-25 00:00:00 [facility] [place] [facility] date description facility 2020-07-02 00:00:00 [facility] [place] [facility] Social History date description facility 2020-04-18 00:00:00 [facility] [place] [facility] date description facility 2020-06-01 00:00:00 [facility] [place] [facility] date description facility 2020-06-25 00:00:00 [facility] [place] [facility] date description facility 2020-07-02 00:00:00 [facility] [place] [facility] date description facility [id number]
== END 2020-07-03 18:14 | disposition home or self-care (01) ==
LOC: ED 15:35
DX: K21.00 Gastro-esophageal reflux disease with esophagitis, without bleeding (principal); R07.9 Chest pain, unspecified; I10 Essential (primary) hypertension
CPT/HCPCS: 36415; 80053; 83690; 84484; 85025; 85379; 93005; 99284

== ENCOUNTER 2020-07-08 07:52 | Emergency (ER) | payer MEDICARE ==
--- NOTE | 2020-07-08 08:17 | ED Physician Documentation ---
PD HPI CHEST PAIN - Stated complaint Stated Complaint: WEAK/SOA/DIZZY - Chief complaint Chief Complaint: Resp - History obtained from History obtained from: Patient - History of Present Illness Timing - onset: Today Timing - onset during: Rest Timing - duration: Hours Timing - details: Abrupt onset, Still present Quality: Other (burning upper chest pain) Location: Substernal Radiation: Back. No: Jaw, Neck, Abdominal, Left upper extremity, Right upper extremity Improved by: Antacids Worsened by: Inspiration Associated symptoms: Shortness of air, Feeling faint / dizzy Similar symptoms before: Diagnosis (respiratory GERD) Recently seen: Clinic, Emergency Dept - Additional information Additional information: 69-year-old male without a prior coronary artery history as developed pain with breathing in his upper chest associated with reflux symptoms. He has been having issues with symptoms of cough and shortness of breath production of phlegm for the past year. Despite antibiotic and steroids he continues to have symptoms and he is scheduled for manometry and endoscopy in 2 days at [facility]. He has stopped the priolosec in anticipation of this and he is currently taking pepcid and will stop this now for the test. He is able to take some antacids as well. Last night patient took some trazodone which she has been taking for sleep over the past 10 days and when he awoke this morning he felt somewhat out of sorts as he usually does with this with a bit of a hangover from the pill and he developed 2 episodes of acute dyspnea associated with near syncope and dizziness after coughing paroxysm.He continues to have a burning sensation in his upper chest associated with each breath and he feels out of sorts. Review of Systems Constitutional: denies: Fever Eyes: denies: Decreased vision Ears: denies: Ear pain Nose: denies: Rhinorrhea / runny nose, Congestion Throat: denies: Sore throat Cardiac: reports: Chest pain / pressure. denies: Palpitations, Pedal edema, Calf pain Respiratory: reports: Dyspnea, Cough, Wheezing GI: denies: Abdominal Pain, Nausea, Vomiting : denies: Frequency PD PAST MEDICAL HISTORY - Past Medical History Past Medical History: Yes Cardiovascular: Hypertension Respiratory: Pneumonia Neuro: None Endocrine/Autoimmune: None GI: Colon polyps, Hepatitis, Diverticulitis : Benign prostate hypertrophy HEENT: None Psych: None Musculoskeletal: None Derm: None - Past Surgical History Past Surgical History: Yes HEENT: Rhinoplasty, Tonsil/Adenoidectomy - Present Medications Home Medications: Ambulatory Orders Medication Instructions Recorded Confirmed LORazepam [Ativan] 0.5 mg PO Q6H PRN #7 tablet 10/19/19 Ondansetron Odt [Zofran] 4 mg TL Q6H PRN #10 tablet 10/19/19 Sucralfate [Carafate] 1 gm PO ACHS #60 tablet 10/19/19 Ondansetron Odt [Zofran] 4 mg TL Q6H PRN #10 tablet 07/03/20 Sucralfate [Carafate] 1 gm PO BID #20 tablet 07/03/20 LORazepam [Ativan] 0.5 mg PO Q6H PRN #10 tablet 07/08/20 - Allergies Allergies/Adverse Reactions: Allergies Allergy/AdvReac Type Severity Reaction Status Date / Time No Known Drug Allergies Allergy Verified 07/08/20 08:05 - Social History Does the pt smoke?: No Smoking Status: Never smoker Does the pt drink ETOH?: No Does the pt have substance abuse?: No - Immunizations Immunizations are current?: Yes - POLST Patient has POLST: No PD ED PE NORMAL - Vitals Vital signs reviewed: Yes (normal) - General General: Alert and oriented X 3, No acute distress, Well developed/nourished - HEENT HEENT: Atraumatic, PERRL, EOMI - Neck Neck: Supple, no meningeal sign, No bony TTP - Cardiac Cardiac: RRR, No murmur - Respiratory Respiratory: No respiratory distress, Other (fine wheezes bilatrally in the apecies worse on the right. ) - Abdomen Abdomen: Soft, Non tender - Back Back: No CVA TTP, No spinal TTP - Derm Derm: Normal color, Warm and dry, No rash - Extremities Extremities: No deformity, No edema - Neuro Neuro: Alert and oriented X 3, production solderer 2-12 intact, No motor deficit, No sensory deficit, Normal speech Eye Opening: Spontaneous Motor: Obeys Commands Verbal: Oriented GCS Score: 15 - Psych Psych: Normal mood, Normal affect Results - Vitals Vitals: Vital Signs - 24 hr 07/08/20 07/08/20 07/08/20 07:58 08:51 10:19 Temperature 36.2 C L Heart Rate 69 74 78 Respiratory 14 18 16 Rate Blood Pressure 120/78 117/73 O2 Saturation 100 100 Oxygen O2 Source Room air - EKG (time done) 0800 Rate: Rate (enter#) (65) Rhythm: NSR [place]: LAD Compare to prior EKG: Unchanged from prior EKG (SPT 07-03-2019 no sig changes) Computer interpretation: Agree with computer - Labs Labs: Laboratory Tests 07/08/20 07/08/20 07/08/20 08:45 08:45 08:45 WBC 12.8 H RBC 4.62 L Hgb 14.7 Hct 43.1 MCV 93.3 MCH 31.8 H MCHC 34.1 RDW 11.9 L Plt Count 235 MPV 9.9 Neut # (Auto) 11.1 H Lymph # (Auto) 0.8 L [place] # (Auto) 0.7 Eos # (Auto) 0.0 Baso # (Auto) 0.1 Absolute Nucleated RBC 0.00 Nucleated RBC % 0.0 Sodium 137 Potassium 3.9 Chloride 97 L Carbon Dioxide 30 Anion Gap 10.0 BUN 19 Creatinine 1.0 Estimated GFR (MDRD) 74 L Glucose 103 H Calcium 9.3 Total Bilirubin 0.7 AST 18 ALT 19 Alkaline Phosphatase 82 Troponin I High Sens 4.0 Total Protein 7.0 Albumin 4.1 Globulin 2.9 Albumin/Globulin Ratio 1.4 Lipase 38 - Rads (name of study) chest Radiology: Prelim report reviewed (Impression: No acute cardiopulmonary abnormality.), EMP read indepedently, See rad report Procedures - Bedside sono Bedside sono by EMP: With use of bedside ultrasound the heart is imaged there is appear to be symmetric contraction and there is no evidence of ventricular dilation or pericardial effusion. - IVC sono (time) 0840 Bedside IVC sono: IVC measures (cm) (2.02), IVC collapsed c insp (cm) (0.81), Euvolemia PD MEDICAL DECISION MAKING - ED course Complexity details: reviewed old records, reviewed results, re-evaluated patient, considered differential, d/w patient ED course: 69 y/o male with dyspnea that appears to be related to GERD has been off of his prilosec for 2 weeks and he is having a lot more problem with chest tightness and breathing. He is not able to sleep at night and has been taking some trazodone and he has side effects of a hangover in the morning after taking this and he feels out of sorts. Today he appears to be moving air well, has 100% oxygen saturation, a mild tight wheeze and improvement with a duo-neb treatment. He however developes hyperventilation appears anxious and has numb lips and cognative impairment that is sensed by him but not clinically apparent. He is administered IV ativan. He has improvement in his symptoms that appear to be related to anxiety and hyperventilation when he has an episode of reflux causing shortness of air. Departure - Departure Disposition: 01 Home, Self Care Clinical Impression: Hyperventilation syndrome GERD (gastroesophageal reflux disease) Qualifiers: Esophagitis presence: esophagitis presence not specified Qualified Code(s): K21.9 - Gastro-esophageal reflux disease without esophagitis Reactive airway disease with wheezing Qualifiers: Asthma severity: unspecified severity Asthma persistence: unspecified Asthma complication type: uncomplicated Qualified Code(s): J45.909 - Unspecified asthma, uncomplicated Condition: Stable Instructions: ED GERD, ED Reactive Airway Disease, ED Hyperventilation Syndrome Follow-Up: Bertha Dennis DO [Primary Care Provider] - Prescriptions: LORazepam [Ativan] 0.5 mg PO Q6H PRN #10 tablet PRN Reason: hyperventilation
[2020-07-08] MEDS ORDERED: IPRATROPIUM/ALBUTEROL 3 ML NEB INH STA (08:51)
[2020-07-08 09:05] LABS: BASOPHILS # (AUTO) 0.1 10^3/uL (0.0-0.1); BASOPHILS % (AUTO) 0.5 %; EOSINOPHILS % (AUTO) 0.3 %; HGB - HEMOGLOBIN 14.7 g/dL (14.0-18.0); LYMPHOCYTES # (AUTO) 0.8 10^3/uL (1.5-3.5); LYMPHOCYTES % (AUTO) 6.4 %; MEAN CORPUSCULAR HEMOGLOBIN 31.8 pg (27.0-31.0); MEAN CORPUSCULAR HGB CONC 34.1 g/dL (32.0-36.0); MEAN CORPUSCULAR VOLUME 93.3 fL (80.0-94.0); MEAN PLATELET VOLUME 9.9 fL (7.4-11.4); MONOCYTES # (AUTO) 0.7 10^3/uL (0.0-1.0); MONOCYTES % (AUTO) 5.2 %; NEUTROPHILS # (AUTO) 11.1 10^3/uL (1.5-6.6); NEUTROPHILS % (AUTO) 87.3 %; PLT - PLATELET COUNT 235 10^3/uL (130-450); RED BLOOD COUNT 4.62 10^6/uL (4.70-6.10); RED CELL DISTRIBUTION WIDTH 11.9 % (12.0-15.0); WHITE BLOOD COUNT 12.8 x10^3/uL (4.8-10.8)
--- NOTE | 2020-07-08 09:13 | XRAY Report ---
PROCEDURE: Chest 2 View X-Ray INDICATIONS: soa TECHNIQUE: 2 view(s) of the chest. COMPARISON: CXR 07/03/2020, 06/01/2020. CT chest 08/10/2019. FINDINGS: Surgical changes and devices: None. Lungs and pleura: No pleural effusions or pneumothorax. Lungs are clear. Mediastinum: Mediastinal contours are normal. Heart size is normal. Bones and chest wall: No suspicious bony abnormalities. Soft tissues appear unremarkable. IMPRESSION: No acute cardiopulmonary abnormality. Reviewed by: Marcus Hernández MD on 07/08/2020 8:12 AM [facility] Approved by: Marcus Hernández MD on 07/08/2020 8:12 AM [facility] Station ID: [id number]
[2020-07-08 09:17] LABS: ALBUMIN 4.1 g/dL (3.2-5.5); ALBUMIN/GLOBULIN RATIO 1.4 (1.0-2.2); BILIRUBIN,TOTAL 0.7 mg/dL (0.2-1.0); CALCIUM 9.3 mg/dL (8.5-10.3)
[2020-07-08] MEDS ORDERED: LORazepam 2 MG/ML VIAL IVP STA (09:51)
[2020-07-08 10:54] VITALS: BP 113/75
--- OUTSIDE RECORDS SUMMARY | 2020-07-11 01:58 | EXTERNAL MEDICAL SUMMARY RPT | Continuity of Care Document ---
:1950 Demographics Phone Unavailable Preferred Language Yi Marital Status Unknown Yazdanism Affiliation Unknown Race Unknown Ethnic Group Unknown Author Organization [place] Address [address] [id number] Phone Care Team Providers Name Role Phone DO Unavailable Unavailable [place] Unavailable Unavailable Scheidt Unavailable Unavailable Problems date description facility 2020-04-18 00:[address] OF OTHER [facility] INFECTIOUS AND PARASITIC DISEASES 2020-04-18 00:00:00 Hepatitis B Core Antibody, IgM [facility] (anti-HBc, IgM) [facility] 2020-04-18 00:00:00 Hepatitis B Surface Antibody [facility] 2020-04-18 00:00:00 Hepatitis C Ab [facility] ajit [facility] 2020-04-18 00:00:00 Hepatitis B Surface Antigen [facility] 2020-04-18 00:00:00 Hepatitis C Virus (HCV) RNA, [facility] Care Qualtitative by PCR [facility] 2020-04-18 00:00:00 Hepatitis C Virus (HCV) [facility] Genotyping [facility] 2020-04-18 00:00:00 Other se[facility]rheic keratosis [facility] 2020-04-18 00:00:00 Health-related behavior [facility] 2020-04-18 00:00:00 Tobacco use and exposure [facility] 2020-04-18 00:00:00 [facility] 2020-04-18 00:00:00 Details of drug misuse behavior [facility] 2020-04-18 00:00:00 Senile hyperkeratosis [facility] 2020-04-18 00:00:00 Alcohol use [facility] Prim ajit [facility] 2020-04-18 00:00:00 Tobacco smoking status [facility] 2020-04-18 00:00:00 Total score? [facility] 2020-04-18 00:00:00 [facility] 2020-04-18 08:00 PERSONAL HISTORY OF OTHER [facility] INFECTIOUS AND PARASITIC DISEASES 2020-04-24 00:00:00 Other and unspecified [facility] nonspecific immunological [facility] findings 2020-04-24 00:00:00 Raised antibody titer [facility] 2020-04-24 00:00:00 Hepatitis C antibody test [facility] positive [facility] 2020-06-01 00:00:00 Pneumonia, organism unspecified idb [facility] 2020-06-01 00:00:00 CHEST 2 VIEW [facility] 2020-06-01 00:00:00 Pneumonia, unspecified organism idb [facility] 2020-06-01 00:00:00 [facility]onitis [facility] 2020-06-01 00:00:00 [facility] 2020-06-01 00:00:00 Tobacco use and exposure [facility] 2020-06-01 00:00:00 Exercise [facility] 2020-06-01 00:00:00 Details of drug misuse behavior idb [facility] 2020-06-01 00:00:00 Alcohol [facility] 2020-06-01 00:00:00 Tobacco [facility] 2020-06-01 00:00:00 Total score? [facility] 2020-06-01 00:00:00 [facility] 2020-06-01 15:15 CHEST PAIN ON BREATHING [facility] 2020-06-25 00:00:00 Health-related behavior [facility] 2020-06-25 00:00:00 Tobacco use and exposure [facility] 2020-06-25 00:00:00 Exercise [facility] ajit Care [facility] 2020-06-25 00:00:00 Details of drug misuse behavior idb [facility] 2020-06-25 00:00:00 [facility] 2020-06-25 00:00:00 Tobacco smoking status [facility] 2020-06-25 00:00:00 Total score? [facility] 2020-06-25 00:00:00 Former smoker [facility] 2020-07-02 00:00:00 Chronic airway obstruction, not idb [facility] Care elsewhere classified [facility] 2020-07-02 00:00:00 Chronic obstructive pulmonary [facility] disease, unspecified [facility] 2020-07-02 00:00:00 Chronic obstructive lung [facility] disease [facility] 2020-07-02 00:00:00 Health-related behavior [facility] 2020-07-02 00:00:00 Tobacco use and exposure [facility] 2020-07-02 00:00:00 [facility] 2020-07-02 00:00:00 Details of drug misuse behavior idb [facility] 2020-07-02 00:00:00 Alcohol use [facility] aijt [facility] 2020-07-02 00:00:00 Tobacco [facility] status [facility] 2020-07-02 00:00:00 Total score? [facility] 2020-07-02 00:00:00 Former smoker [facility] Prim ajit Care [facility] 2020-07-03 00:00:00 Other chest pain [facility] Prim [facility] 2020-07-03 00:00:00 Atypical chest pain [facility] 2020-07-03 15:35 ESSENTIAL (PRIMARY) [facility] HYPERTENSION 2020-07-03 15:35 GASTRO-ESOPHAGEAL REFLUX DIS [facility] WITH ESOPHAGITIS, WIT 2020-07-03 15:35 CHEST PAIN, UNSPECIFIED [facility] Allergies date description facility ADHESIVE \T\ TAPE [facility] BEE VENOM [facility] CODEINE [facility] LATANOPROST [facility] METFORMIN [facility] MORPHINE SULFATE [facility] MORPHINE [facility] SULFAMETHAZINE [facility] NO KNOWN ENVIRONMENTAL ALLERGIES [facility] SULFA ANTIBIOTICS [facility] CEFACLOR [facility] CONTRAST MEDIUM [facility] TOLMETIN [facility] PENICILLINS [facility] NO KNOWN ALLER[facility]IES [facility] ASPARTAME [facility] FOOD [facility] STRAWBERRY [facility] MORPHINE [facility] CODEINE [facility] PENICILLIN [facility] CEFUROXIME AXETIL [facility] CIPROFLOXACIN [facility] AMOXICILLIN [facility] CEFDINIR [facility] No Known Drug Allergies [facility] AMOXICILLIN [facility] NO KNOWN ENVIRONMENTAL ALLERGIES [facility] NO ALLERGY INFORMATION AVAILABLE [facility] NO KNOWN ALLERGIES [facility] SHELLFISH CONTAINING PRODUCTS [facility] PREGABALIN [facility] CODEINE [facility] No Known Drug Allergies [facility] Medications date description facility 2020-04-18 00:00:00 Patient decision [facility] 2020-04-18 00:00:00 null [facility] 2020-04-18 00:00:00 null [facility] 2020-04-18 00:00:00 null [facility] 2020-04-18 00:00:00 Procedure refused [facility] 2020-04-18 00:00:00 null [facility] 2020-06-25 00:00:00 null [facility] 2020-06-25 00:00:00 null [facility] 2020-06-25 00:00:00 null [facility] 2020-06-25 00:00:00 null [facility] 2020-06-25 00:00:00 FLUTICASONE-SALMETEROL [facility] 2020-06-25 00:00:00 LEVOFLOXACIN [facility] 2020-06-25 00:00:00 LEVOFLOXACIN [facility] 2020-06-25 00:00:00 FLUTICASONE-SALMETEROL [facility] 2020-07-02 00:00:00 null [facility] 2020-07-02 00:00:00 [facility] 2020-07-02 00:00:00 PREDNISONE [facility] 2020-07-02 00:00:00 PREDNISONE [facility] 2020-07-04 00:00:00 null [facility] 2020-07-04 00:00:00 null [facility] 2020-07-04 00:00:00 null [facility] 2020-07-04 00:00:00 null [facility] 2020-07-04 00:00:00 SUCRALFATE [facility] 2020-07-04 00:00:00 ONDANSETRON TBDP [facility] 2020-07-04 00:00:00 ONDANSETRON TBDP [facility] 2020-07-04 00:00:00 SUCRALFATE [facility] 2020-07-08 00:00:00 null [facility] 2020-07-08 00:00:00 null [facility] 2020-07-08 00:00:00 LORAZEPAM [facility] 2020-07-08 00:00:00 LORAZEPAM [facility] Procedures date description facility 2020-04-18 00:00:00 Hepatitis B Core Antibody, IgM [facility] (anti-HBc, IgM) [facility] date description facility 2020-04-18 00:00:00 Hepatitis B Surface Antibody [facility] date description facility 2020-04-18 00:00:00 Hepatitis C Ab [facility] date description facility 2020-04-18 00:00:00 Hepatitis B Surface Antigen [facility] date description facility 2020-04-18 00:00:00 Hepatitis C Virus (HCV) RNA, [facility] Qualtitative by PCR [facility] date description facility 2020-04-18 00:00:00 Hepatitis C Virus (HCV) [facility] Genotyping [facility] date description facility 2020-04-18 00:00:00 First Ix admin via ID IM or [facility] jet injects with counseling by [facility] physician for adult date description facility 2020-04-18 00:00:00 Pneumovax 23 Injection [facility] Injectable 25 MCG/0.5ML [facility] date description facility 2020-04-18 00:00:00 [facility] date description facility 2020-06-01 00:00:00 CHEST 2 VIEW [facility] date description facility 2020-06-01 00:00:00 Dexamethasone Sodium Phosphate [facility] Inj 10mg/1mL [facility] date description facility 2020-06-01 00:00:00 Med Administration [facility] aj[facility] Care (PO-SL-IN-WA) [facility] date description facility 2020-06-01 00:00:00 [facility] date description facility 2020-07-03 00:00:00 EKG Office Complete [facility] Alison harini [facility] date description facility 2020-07-03 00:00:00 [facility] Results Social History date description facility 2020-04-18 00:00:00 Former smoker [facility] date description facility 2020-06-01 00:00:00 Former smoker [facility] date description facility 2020-06-25 00:00:00 Former smoker [facility] date description facility 2020-07-02 00:00:00 Former smoker [facility] Social History date description facility 2020-04-18 00:00:00 Former smoker [facility] date description facility 2020-06-01 00:00:00 Former smoker [facility] date description facility 2020-06-25 00:00:00 Former smoker [facility] date description facility 2020-07-02 00:00:00 Former smoker [facility] date description facility [id number]
== END 2020-07-08 11:10 | disposition home or self-care (01) ==
LOC: ED 07:52
DX: F45.8 Other somatoform disorders (principal); K21.9 Gastro-esophageal reflux disease without esophagitis; J45.909 Unspecified asthma, uncomplicated; I10 Essential (primary) hypertension
CPT/HCPCS: 36415; 71046; 80053; 83690; 84484; 85025; 93005; 94640; 94664; 96374; 99284; J2060

== ENCOUNTER 2020-07-14 16:31 | Emergency (ER) | payer MEDICARE ==
--- NOTE | 2020-07-14 16:59 | ED Physician Documentation ---
PD HPI DYSPNEA - Stated complaint Stated Complaint: SOA,NAUSEA - Chief complaint Chief Complaint: Resp - History obtained from History obtained from: Patient - Additional information Additional information: 69-year-old gentleman with history of COPD, chronic reflux. He has been having issues with shortness of breath lately. For the last year he has pain with deep breathing. I think it was presumed to be related to a GI source. He actually had an upper endoscopy with acid monitoring last week but does not have results yet. He will be seeing the industrial truck driver this coming week. He was has some green phlegm in the morning without cough per se. He has received a couple of rounds of antibiotics for that, more recently is just finishing up a steroid taper. The steroid taper actually may be causative of his new issues. He has had episodic difficulty breathing feeling like he is hyperventilating and his hands and feet get numb. He has been seen here twice for this, on the of the month saw Dr. Ibrahim work-up was negative including D-dimer, troponin, chest x-ray, and sent home with sucralfate. Subsequently was seen again on the , that time after having started some trazodone. Work-up was similarly negative, and he was started on lorazepam which he does feel is helpful. He does not know any pattern to the shortness of breath episodes but they do not wake him up at night. He denies pedal edema or calf pain. No history of heart troubles. He is going to be seeing a hand bender this coming week. Review of Systems Ten Systems: 10 systems reviewed and negative Constitutional: denies: Fever, Chills Nose: denies: Rhinorrhea / runny nose Throat: denies: Sore throat Cardiac: reports: Chest pain / pressure (with breathing x 1 year). denies: Palpitations, Pedal edema, Calf pain Respiratory: reports: Dyspnea. denies: Cough GI: denies: Abdominal Pain PD PAST MEDICAL HISTORY - Past Medical History Cardiovascular: Hypertension Respiratory: Pneumonia Neuro: None Endocrine/Autoimmune: None GI: Colon polyps, Hepatitis, Diverticulitis : Benign prostate hypertrophy HEENT: None Psych: None Musculoskeletal: None Derm: None - Past Surgical History Past Surgical History: Yes HEENT: Rhinoplasty, Tonsil/Adenoidectomy - Present Medications Home Medications: Ambulatory Orders Medication Instructions Recorded Confirmed Irbesartan [Avapro] 1 tab PO DAILY 07/14/20 07/14/20 Sucralfate [Carafate] 1 tab PO PRN PRN 07/14/20 07/14/20 Tamsulosin [Flomax] 1 tab PO DAILY 07/14/20 07/14/20 traZODone [Desyrel] 0.5 tab PO PRN PRN 07/14/20 07/14/20 - Allergies Allergies/Adverse Reactions: Allergies Allergy/AdvReac Type Severity Reaction Status Date / Time No Known Drug Allergies Allergy Verified 07/14/20 16:33 - Social History Does the pt smoke?: No Smoking Status: Never smoker Does the pt drink ETOH?: No Does the pt have substance abuse?: No - Immunizations Immunizations are current?: Yes - POLST Patient has POLST: No PD ED PE NORMAL - Vitals Vital signs reviewed: Yes - General General: Alert and oriented X 3, No acute distress - HEENT HEENT: PERRL, EOMI - Neck Neck: Supple, no meningeal sign, No bony TTP - Cardiac Cardiac: RRR, No murmur - Respiratory Respiratory: No respiratory distress, Clear bilaterally - Abdomen Abdomen: Non tender - Back Back: No CVA TTP, No spinal TTP - Derm Derm: Normal color, Warm and dry - Extremities Extremities: No edema, No calf tenderness / cord - Neuro Neuro: Alert and oriented X 3, Normal speech Results - Vitals Vitals: Vital Signs - 24 hr 07/14/20 07/14/20 07/14/20 16:33 17:00 18:45 Temperature 36.6 C Heart Rate 67 67 69 Respiratory 20 16 16 Rate Blood Pressure 140/76 H 139/85 H 139/81 H O2 Saturation 100 99 100 Oxygen O2 Source Room air - EKG (time done) 1704 Rate: Rate (enter#) (70) Rhythm: NSR Bryant: LAD Intervals: Normal [place], Other (LAFB) Ischemia: Non specific changes. No: ST elevation c/w ischemia, ST depression Compare to prior EKG: Changed from prior EKG (no chg from 07/08/20) Computer interpretation: Agree with computer - Labs Labs: Laboratory Tests 07/14/20 07/14/20 07/14/20 16:55 16:55 16:55 WBC 7.5 RBC 4.71 Hgb 14.7 Hct 43.6 MCV 92.6 MCH 31.2 H MCHC 33.7 RDW 11.9 L Plt Count 245 MPV 10.0 Neut # (Auto) 6.2 Lymph # (Auto) 0.8 L [place] # (Auto) 0.4 Eos # (Auto) 0.0 Baso # (Auto) 0.0 Absolute Nucleated RBC 0.00 Nucleated RBC % 0.0 VBG pH 7.402 VBG pCO2 45.0 VBG pO2 29.9 VBG HCO3 27.4 VBG Total CO2 28.8 VBG O2 Saturation 62.9 VBG Base Excess 2.1 H Sodium Potassium Chloride Carbon Dioxide Anion Gap BUN Creatinine Estimated GFR (MDRD) Glucose Calcium Troponin I High Sens B-Natriuretic Peptide Nasal Adenovirus (PCR) NOT DETECTED Nasal B. parapertussis DNA (PCR) NOT DETECTED Nasal Coronavir 229E PCR NOT DETECTED Nasal Coronavir HKU1 PCR NOT DETECTED Nasal Coronavir NL63 PCR NOT DETECTED Nasal Coronavir OC43 PCR NOT DETECTED Nasal Enterovir/Rhinovir PCR NOT DETECTED Nasal Influenza B PCR NOT DETECTED Nasal Influenza A PCR NOT DETECTED Nasal Parainfluen 1 PCR NOT DETECTED Nasal Parainfluen 2 PCR NOT DETECTED Nasal Parainfluen 3 PCR NOT DETECTED Nasal Parainfluen 4 PCR NOT DETECTED Nasal RSV (PCR) NOT DETECTED Nasal B.pertussis DNA PCR NOT DETECTED Nasal C.pneumoniae (PCR) NOT DETECTED Keith Human Metapneumo PCR NOT DETECTED Nasal M.pneumoniae (PCR) NOT DETECTED Nasal SARS-CoV-2 (PCR) NOT DETECTED Ethyl Alcohol 07/14/20 07/14/20 07/14/20 17:26 17:26 17:26 WBC RBC Hgb Hct MCV MCH MCHC RDW Plt Count MPV Neut # (Auto) Lymph # (Auto) [place] # (Auto) Eos # (Auto) Baso # (Auto) Absolute Nucleated RBC Nucleated RBC % VBG pH VBG pCO2 VBG pO2 VBG HCO3 VBG Total CO2 VBG O2 Saturation VBG Base Excess Sodium 136 Potassium 4.4 Chloride 98 L Carbon Dioxide 28 Anion Gap 10.0 BUN 15 Creatinine 0.8 Estimated GFR (MDRD) 96 Glucose 113 H Calcium 9.1 Troponin I High Sens 4.8 B-Natriuretic Peptide 19 Nasal Adenovirus (PCR) Nasal B. parapertussis DNA (PCR) Nasal Coronavir 229E PCR Nasal Coronavir HKU1 PCR Nasal Coronavir NL63 PCR Nasal Coronavir OC43 PCR Nasal Enterovir/Rhinovir PCR Nasal Influenza B PCR Nasal Influenza A PCR Nasal Parainfluen 1 PCR Nasal Parainfluen 2 PCR Nasal Parainfluen 3 PCR Nasal Parainfluen 4 PCR Nasal RSV (PCR) Nasal B.pertussis DNA PCR Nasal C.pneumoniae (PCR) Keith Human Metapneumo PCR Nasal M.pneumoniae (PCR) Nasal SARS-CoV-2 (PCR) Ethyl Alcohol < 5.0 - Rads (name of study) Ct Chest w Radiology: EMP read contemporaneously (NAD/normal) PD MEDICAL DECISION MAKING - ED course ED course: 69-year-old gentleman presents with ongoing now worse dyspnea. It is worse at night and worse when flat. Anxiety is considered and he does get some relief with lorazepam, but no respiratory alkalosis on venous gas. Overall his results are basically entirely normal with no evidence of PE, ACS, CHF, anemia. I think it is in the he did off his Prilosec for a week pending upper endoscopy with pH study and also was started at the same time on a prednisone taper which I think coordinated to worsen his GERD and reflux issues. Departure - Departure Disposition: 01 Home, Self Care Clinical Impression: GERD (gastroesophageal reflux disease) Qualifiers: Esophagitis presence: with esophagitis Esophagitis bleeding: unspecified whether hemorrhage Qualified Code(s): K21.00 - Gastro-esophageal reflux disease with esophagitis, without bleeding Dyspnea Qualifiers: Dyspnea type: shortness of breath Qualified Code(s): R06.02 - Shortness of breath; R06.00 - Dyspnea, unspecified; R06.01 - Orthopnea Condition: Good Record reviewed to determine appropriate education?: Yes Instructions: GERD Dc, ED Dyspnea Shortness of Breath Comments: As discussed, I think given the overall normal results today, your symptoms are likely due to ongoing severe reflux as evidenced also by your known hiatal hernia. I think you have excellent follow-up with both GI and pulmonology this week. You might talk to the industrial truck driver about surgical referral to assess whether a Anette fundoplication might be appropriate. Return for new or worsening symptoms. I would stop the steroids for now and continue your Prilosec twice a day.
[2020-07-14 17:03] LABS: BASOPHILS % (AUTO) 0.5 %; EOSINOPHILS % (AUTO) 0.5 %; HGB - HEMOGLOBIN 14.7 g/dL (14.0-18.0); LYMPHOCYTES # (AUTO) 0.8 10^3/uL (1.5-3.5); LYMPHOCYTES % (AUTO) 10.9 %; MEAN CORPUSCULAR HEMOGLOBIN 31.2 pg (27.0-31.0); MEAN CORPUSCULAR HGB CONC 33.7 g/dL (32.0-36.0); MEAN CORPUSCULAR VOLUME 92.6 fL (80.0-94.0); MONOCYTES # (AUTO) 0.4 10^3/uL (0.0-1.0); MONOCYTES % (AUTO) 5.3 %; NEUTROPHILS # (AUTO) 6.2 10^3/uL (1.5-6.6); NEUTROPHILS % (AUTO) 82.7 %; PLT - PLATELET COUNT 245 10^3/uL (130-450); RED BLOOD COUNT 4.71 10^6/uL (4.70-6.10); RED CELL DISTRIBUTION WIDTH 11.9 % (12.0-15.0); WHITE BLOOD COUNT 7.5 x10^3/uL (4.8-10.8)
[2020-07-14 17:04] LABS: VBG PH 7.402 (7.31-7.41)
[2020-07-14 17:05] LABS: VBG BASE EXCESS 2.1 mmol/L (-2 - +2); VBG PO2 29.9 mmHg (25-47); VBG TOTAL CO2 28.8 mmol/L (24-29)
[2020-07-14] MEDS ORDERED: IOVERSOL 320 100 ML VIAL IVP ONE ×2 (17:09→18:52)
[2020-07-14 17:42] LABS: BUN - BLOOD UREA NITROGEN 15 mg/dL (6-20); CALCIUM 9.1 mg/dL (8.5-10.3); CARBON DIOXIDE - CO2 28 mmol/L (21-32); CHLORIDE 98 mmol/L (101-111); CREATININE 0.8 mg/dL (0.6-1.2); GLUCOSE 113 mg/dL (70-100); SODIUM 136 mmol/L (135-145)
[2020-07-14 18:03] LABS: C. PNEUMONIAE- RESP PCR PANEL NOT DETECTED
--- NOTE | 2020-07-14 19:16 | CT Report ---
PROCEDURE: CHEST W INDICATIONS: chest pain/dyspnea CONTRAST: IV CONTRAST: Optiray 320 ml: 100 PO CONTRAST: *NO PO CONTRAST TECHNIQUE: After the administration of intravenous contrast, 5 mm thick sections acquired from the pulmonary api yolanda to the posterior costophrenic angles. 7 mm thick coronal MIP reformats were acquired. For radia tion dose reduction, the following was used: automated exposure control, adjustment of mA and/or kV according to patient size. COMPARISON: CT chest 08/17/2019, chest x-ray 07/08/2020 FINDINGS: Image quality: Injection is suboptimal for evaluation of distal pulmonary artery branches. Lungs and pleura: No acute air space opacities. No pleural effusions or pneumothorax. Central and peripheral airways are patent and normal in caliber. Mediastinum: Heart size is normal. No pericardial effusion. No mediastinal or hilar adenopathy by size criteria. Thoracic aorta and central pulmonary arteries are normal in size. Esophagus is wali l in caliber. Mild hiatal hernia. Bones and chest wall: No suspicious bony lesions. No vertebral body compression fractures. No axil silke or supraclavicular adenopathy by size criteria. Thyroid gland is unremarkable. Abdomen: Hepatic cyst is unchanged. Otherwise, visualized upper abdominal solid organs appear normal . Upper abdominal bowel loops are normal in caliber. IMPRESSION: 1. No central pulmonary embolism. Injection is suboptimal for evaluation of segmental branches. 2. No consolidations or effusions. Reviewed by: Barbra Devries MD on 07/14/2020 7:14 PM PST Approved by: Barbra Devries MD on 07/14/2020 7:14 PM PST Station ID: [id number]
[2020-07-14 19:42] VITALS: BP 144/94
== END 2020-07-14 19:50 | disposition home or self-care (01) ==
LOC: ED 16:31
DX: K21.00 Gastro-esophageal reflux disease with esophagitis, without bleeding (principal); R06.01 Orthopnea; I10 Essential (primary) hypertension; J44.9 Chronic obstructive pulmonary disease, unspecified; Z20.828 Contact with and (suspected) exposure to other viral communicable diseases
CPT/HCPCS: 36415; 71260; 80048; 82803; 83880; 84484; 85025; 87631; 93005; 99284; Q9967; 0202U; 80320

== ENCOUNTER 2020-07-15 08:58 | Emergency (ER) | payer MEDICARE ==
[2020-07-15] MEDS ORDERED: SODIUM CHLORIDE 0.9% 1,000 ML IV STA (09:54)
[2020-07-15] MEDS ORDERED: ONDANSETRON 4 MG/2 ML VIAL IVP STA (09:55)
[2020-07-15 10:31] LABS: BASOPHILS # (AUTO) 0.1 10^3/uL (0.0-0.1); BASOPHILS % (AUTO) 0.9 %; EOSINOPHILS % (AUTO) 0.7 %; HGB - HEMOGLOBIN 13.9 g/dL (14.0-18.0); LYMPHOCYTES # (AUTO) 0.7 10^3/uL (1.5-3.5); LYMPHOCYTES % (AUTO) 11.8 %; MEAN CORPUSCULAR HEMOGLOBIN 31.4 pg (27.0-31.0); MEAN CORPUSCULAR HGB CONC 34.2 g/dL (32.0-36.0); MEAN CORPUSCULAR VOLUME 91.6 fL (80.0-94.0); MEAN PLATELET VOLUME 9.8 fL (7.4-11.4); MONOCYTES # (AUTO) 0.5 10^3/uL (0.0-1.0); MONOCYTES % (AUTO) 8.6 %; NEUTROPHILS # (AUTO) 4.6 10^3/uL (1.5-6.6); NEUTROPHILS % (AUTO) 77.8 %; PLT - PLATELET COUNT 206 10^3/uL (130-450); RED BLOOD COUNT 4.43 10^6/uL (4.70-6.10); RED CELL DISTRIBUTION WIDTH 11.7 % (12.0-15.0); WHITE BLOOD COUNT 5.8 x10^3/uL (4.8-10.8)
[2020-07-15 10:36] LABS: VBG PCO2 40.9 mmHg (41-51); VBG PH 7.422 (7.31-7.41)
[2020-07-15 10:37] LABS: VBG BASE EXCESS 1.5 mmol/L (-2 - +2); VBG PO2 52.9 mmHg (25-47); VBG TOTAL CO2 27.3 mmol/L (24-29)
--- NOTE | 2020-07-15 10:43 | XRAY Report ---
PROCEDURE: Chest 1 View X-Ray INDICATIONS: Chest Pain TECHNIQUE: One view of the chest was acquired. COMPARISON: 07/08/2020, 07/03/2020, 06/01/2020. Correlation is also made with CT 07/14/2020. FINDINGS: Surgical changes and devices: An apparent electronic device can be seen overlying the mid mediastinu m. Lungs and pleura: No pleural effusions or pneumothorax. Lungs are clear. Mediastinum: Mediastinal contours appear normal. Heart size is normal. Bones and chest wall: No suspicious bony lesions. Age-appropriate degenerative changes are seen. Overlying soft tissues appear unremarkable. IMPRESSION: An apparent electronic device can be seen overlying the mid mediastinum. Please correlat e with an esophageal monitoring device. No additional portable chest abnormality can be seen. Reviewed by: Jim Torrez MD on 07/15/2020 9:42 AM [facility] Approved by: Jim Torrez MD on 07/15/2020 9:42 AM [facility] Station ID: [id number]
[2020-07-15 10:48] LABS: ALBUMIN 3.9 g/dL (3.2-5.5); ALBUMIN/GLOBULIN RATIO 1.5 (1.0-2.2); BILIRUBIN,TOTAL 0.9 mg/dL (0.2-1.0); CREATININE 0.8 mg/dL (0.6-1.2); TOTAL PROTEIN 6.5 g/dL (6.7-8.2)
--- NOTE | 2020-07-15 11:27 | ED Physician Documentation ---
History of Present Illness - Stated complaint Stated Complaint: SOA/NAUSEA - Chief complaint Chief Complaint: Resp - History obtained from History obtained from: Patient - Additonal information Additional information: 69-year-old male with past medical history of high blood pressure, former smoker presents with shortness of breath for the past 10 days associated with nausea, dizziness, chronic pleuritic chest pain that is nonworsening. Patient states that he had been given a steroid course recently was in experiencing symptoms he believes is related to this. He also had an endoscopy with Westbrook capsule placed last week and had to stop his Prilosec. This coincided with all of his symptoms. He was seen in the ED yesterday and discharged home. Patient denies chest pain, new onset leg swelling, history of clots, steroid use, cancer. denies fevers Review of Systems Ten Systems: 10 systems reviewed and negative PD PAST MEDICAL HISTORY - Past Medical History Past Medical History: Yes Cardiovascular: Hypertension Respiratory: Pneumonia Neuro: None Endocrine/Autoimmune: None GI: Colon polyps, Hepatitis, Diverticulitis : Benign prostate hypertrophy HEENT: None Psych: None Musculoskeletal: None Derm: None - Past Surgical History Past Surgical History: Yes HEENT: Rhinoplasty, Tonsil/Adenoidectomy - Present Medications Home Medications: Ambulatory Orders Medication Instructions Recorded Confirmed Irbesartan [Avapro] 1 tab PO DAILY 07/14/20 07/15/20 Sucralfate [Carafate] 1 tab PO PRN PRN 07/14/20 07/15/20 Tamsulosin [Flomax] 1 tab PO DAILY 07/14/20 07/15/20 traZODone [Desyrel] 0.5 tab PO PRN PRN 07/14/20 07/15/20 - Allergies Allergies/Adverse Reactions: Allergies Allergy/AdvReac Type Severity Reaction Status Date / Time No Known Drug Allergies Allergy Verified 07/15/20 09:14 - Social History Does the pt smoke?: No Smoking Status: Never smoker Does the pt drink ETOH?: No Does the pt have substance abuse?: No - Immunizations Immunizations are current?: Yes - POLST Patient has POLST: No PD ED PE NORMAL - Vitals Vital signs reviewed: Yes - General General: Alert and oriented X 3 - HEENT HEENT: Atraumatic - Neck Neck: Supple, no meningeal sign - Cardiac Cardiac: RRR - Respiratory Respiratory: No respiratory distress, Clear bilaterally - Abdomen Abdomen: Non tender, Non distended - Back Back: No spinal TTP - Derm Derm: Normal color - Extremities Extremities: No deformity, No edema - Neuro Neuro: Alert and oriented X 3 - Psych Psych: Normal mood, Normal affect Results - Vitals Vitals: Vital Signs - 24 hr 07/15/20 07/15/20 07/15/20 09:12 10:25 11:29 Temperature 36.6 C Heart Rate 70 69 64 Respiratory 18 16 16 Rate Blood Pressure 139/83 H 120/79 128/79 O2 Saturation 100 99 99 Oxygen O2 Source Room air - Labs Labs: Laboratory Tests 07/15/20 07/15/20 07/15/20 10:20 10:20 10:20 WBC 5.8 RBC 4.43 L Hgb 13.9 L Hct 40.6 L MCV 91.6 MCH 31.4 H MCHC 34.2 RDW 11.7 L Plt Count 206 MPV 9.8 Neut # (Auto) 4.6 Lymph # (Auto) 0.7 L [place] # (Auto) 0.5 Eos # (Auto) 0.0 Baso # (Auto) 0.1 Absolute Nucleated RBC 0.00 Nucleated RBC % 0.0 D-Dimer < 200.0 L VBG pH VBG pCO2 VBG pO2 VBG HCO3 VBG Total CO2 VBG O2 Saturation VBG Base Excess Sodium 135 Potassium 3.8 Chloride 98 L Carbon Dioxide 26 Anion Gap 11.0 BUN 13 Creatinine 0.8 Estimated GFR (MDRD) 96 Glucose 109 H Calcium 9.0 Total Bilirubin 0.9 AST 17 ALT 17 Alkaline Phosphatase 74 Troponin I High Sens Total Protein 6.5 L Albumin 3.9 Globulin 2.6 Albumin/Globulin Ratio 1.5 Lipase 40 07/15/20 07/15/20 10:20 10:20 WBC RBC Hgb Hct MCV MCH MCHC RDW Plt Count MPV Neut # (Auto) Lymph # (Auto) [place] # (Auto) Eos # (Auto) Baso # (Auto) Absolute Nucleated RBC Nucleated RBC % D-Dimer VBG pH 7.422 H VBG pCO2 40.9 L VBG pO2 52.9 H VBG HCO3 26.1 VBG Total CO2 27.3 VBG O2 Saturation 90.3 H VBG Base Excess 1.5 Sodium Potassium Chloride Carbon Dioxide Anion Gap BUN Creatinine Estimated GFR (MDRD) Glucose Calcium Total Bilirubin AST ALT Alkaline Phosphatase Troponin I High Sens 5.6 Total Protein Albumin Globulin Albumin/Globulin Ratio Lipase PD MEDICAL DECISION MAKING - ED course ED course: Labwork, ekg, cxr nonfocal including dimer. symptoms resolved at this time. vbg shows hyperventilatory pattern. Patient has an appointment with his primary doctor Dr. Chavez on Thursday, his GI Dr. Nunez on Thursday, and his new interactive project manager on . Return precautions given. Departure - Departure Disposition: Home, Self Care Clinical Impression: Shortness of breath, Dizziness Condition: Good Instructions: ED Dyspnea Shortness of Breath Comments: You were seen in the emergency department for shortness of breath and dizziness. Your lab work, EKG, and chest x-ray did not show any concerning findings. Your Westbrook capsule is still in place at the lower esophagus. Follow-up with your doctors on Thursday, Thursday, and . Return for any new or worsening symptoms or other concerns. Discharge Date/Time: 07/15/20 11:33
[2020-07-15 11:30] VITALS: BP 128/79
== END 2020-07-15 11:33 | disposition home or self-care (01) ==
LOC: ED 08:58
DX: R06.02 Shortness of breath (principal); R42 Dizziness and giddiness; I10 Essential (primary) hypertension; Z87.891 Personal history of nicotine dependence
CPT/HCPCS: 36415; 80053; 82803; 83690; 84484; 85025; 85379; 93005; 96360; 99281

== ENCOUNTER 2020-07-16 17:41 | Emergency (ER) | payer MEDICARE ==
[2020-07-16 18:07] LABS: BASOPHILS # (AUTO) 0.1 10^3/uL (0.0-0.1); BASOPHILS % (AUTO) 0.9 %; EOSINOPHILS % (AUTO) 0.6 %; HGB - HEMOGLOBIN 14.5 g/dL (14.0-18.0); LYMPHOCYTES # (AUTO) 0.9 10^3/uL (1.5-3.5); LYMPHOCYTES % (AUTO) 13.2 %; MEAN CORPUSCULAR HEMOGLOBIN 31.1 pg (27.0-31.0); MEAN CORPUSCULAR HGB CONC 34.1 g/dL (32.0-36.0); MEAN CORPUSCULAR VOLUME 91.2 fL (80.0-94.0); MEAN PLATELET VOLUME 9.5 fL (7.4-11.4); MONOCYTES # (AUTO) 0.4 10^3/uL (0.0-1.0); MONOCYTES % (AUTO) 6.2 %; NEUTROPHILS # (AUTO) 5.5 10^3/uL (1.5-6.6); NEUTROPHILS % (AUTO) 78.8 %; PLT - PLATELET COUNT 226 10^3/uL (130-450); RED BLOOD COUNT 4.66 10^6/uL (4.70-6.10); RED CELL DISTRIBUTION WIDTH 11.9 % (12.0-15.0)
--- NOTE | 2020-07-16 18:18 | XRAY Report ---
PROCEDURE: Chest 1 View X-Ray INDICATIONS: Chest pain TECHNIQUE: One view of the chest was acquired. COMPARISON: 07/15/2020, 07/08/2020. FINDINGS: Surgical changes and devices: Electronic monitoring device which could represent a monitor and storage bin tender or esophageal monitor is stable. Lungs and pleura: No pleural effusions or pneumothorax. Lungs are clear. Mediastinum: Mediastinal contours appear normal. Heart size is normal. Bones and chest wall: No suspicious bony lesions. Overlying soft tissues appear unremarkable. IMPRESSION: No acute cardiopulmonary disease process. Reviewed by: Amy Glass MD, PhD on 07/16/2020 5:17 PM [facility] Approved by: Amy Glass MD, PhD on 07/16/2020 5:17 PM [facility] Station ID: [id number]
[2020-07-16 18:20] LABS: ALBUMIN 4.5 g/dL (3.2-5.5); ALBUMIN/GLOBULIN RATIO 1.6 (1.0-2.2); BILIRUBIN,TOTAL 0.7 mg/dL (0.2-1.0); CALCIUM 9.6 mg/dL (8.5-10.3); CREATININE 0.9 mg/dL (0.6-1.2); TOTAL PROTEIN 7.3 g/dL (6.7-8.2)
--- NOTE | 2020-07-16 18:38 | ED Physician Documentation ---
PD HPI DYSPNEA - Stated complaint Stated Complaint: NAUSEA,PAINFUL BREATHING,DISORIENTED - Chief complaint Chief Complaint: Cardiac - History obtained from History obtained from: Patient - Additional information Additional information: This is a 69-year-old gentleman with history of GERD who has had a lot of visits lately for shortness of breath and nausea. It started on the fifth of this month. Since then he has had multiple testing done including basically normal CBCs although at the first 2 visits he had mild leukocytosis. D-dimer twice which was negative. Tube venous gases which were normal. Chemistries all basically unremarkable. Negative coronavirus testing. CAT scan of his chest was normal. Multiple chest x-rays have been normal. He presents today with nausea and shortness of breath that started just prior to arrival while working in his kitchen. He feels like he cannot go on. He has poor eye contact and appears depressed and anxious. He has appointments with specialist later this week for further work-up. Review of Systems Ten Systems: 10 systems reviewed and negative Constitutional: reports: Fatigue, Reviewed and negative Ears: denies: Loss of hearing, Ear pain Cardiac: denies: Chest pain / pressure, Palpitations, Pedal edema, Calf pain Respiratory: reports: Dyspnea PD PAST MEDICAL HISTORY - Past Medical History Cardiovascular: Hypertension Respiratory: Pneumonia Neuro: None Endocrine/Autoimmune: None GI: Colon polyps, Hepatitis, Diverticulitis : Benign prostate hypertrophy HEENT: None Psych: None Musculoskeletal: None Derm: None - Past Surgical History Past Surgical History: Yes HEENT: Rhinoplasty, Tonsil/Adenoidectomy - Present Medications Home Medications: Ambulatory Orders Medication Instructions Recorded Confirmed Irbesartan [Avapro] 1 tab PO DAILY 07/14/20 07/15/20 Sucralfate [Carafate] 1 tab PO PRN PRN 07/14/20 07/15/20 Tamsulosin [Flomax] 1 tab PO DAILY 07/14/20 07/15/20 traZODone [Desyrel] 0.5 tab PO PRN PRN 07/14/20 07/15/20 - Allergies Allergies/Adverse Reactions: Allergies Allergy/AdvReac Type Severity Reaction Status Date / Time No Known Drug Allergies Allergy Verified 07/16/20 17:56 - Social History Does the pt smoke?: No Smoking Status: Never smoker Does the pt drink ETOH?: No Does the pt have substance abuse?: No - Immunizations Immunizations are current?: Yes - POLST Patient has POLST: No PD ED PE NORMAL - Vitals Vital signs reviewed: Yes - General General: Alert and oriented X 3, Other (anxious, poor eye contact) - HEENT HEENT: PERRL, EOMI - Neck Neck: Supple, no meningeal sign, No bony TTP - Cardiac Cardiac: RRR, No murmur - Respiratory Respiratory: No respiratory distress, Clear bilaterally - Abdomen Abdomen: Soft, Non tender - Back Back: No CVA TTP, No spinal TTP - Derm Derm: Normal color, Warm and dry - Extremities Extremities: No edema, No calf tenderness / cord - Neuro Neuro: Alert and oriented X 3, No motor deficit, No sensory deficit, Normal speech Results - Vitals Vitals: Vital Signs - 24 hr 07/16/20 07/16/20 07/16/20 17:50 19:55 21:00 Temperature 36.5 C Heart Rate 77 79 80 Respiratory 16 20 18 Rate Blood Pressure 150/85 H 150/95 H 147/90 H O2 Saturation 100 99 98 07/16/20 23:14 Temperature Heart Rate 84 Respiratory 16 Rate Blood Pressure 122/90 H O2 Saturation 98 Oxygen O2 Source Room air - EKG (time done) 1806 Rate: Rate (enter#) (84) Rhythm: NSR [place]: Normal, LAD Intervals: Normal IA QRS: Normal Ischemia: Non specific changes - Labs Labs: Laboratory Tests 07/16/20 07/16/20 07/16/20 18:00 18:00 18:00 WBC 7.0 RBC 4.66 L Hgb 14.5 Hct 42.5 MCV 91.2 MCH 31.1 H MCHC 34.1 RDW 11.9 L Plt Count 226 MPV 9.5 Neut # (Auto) 5.5 Lymph # (Auto) 0.9 L [place] # (Auto) 0.4 Eos # (Auto) 0.0 Baso # (Auto) 0.1 Absolute Nucleated RBC 0.00 Nucleated RBC % 0.0 Sodium 133 L Potassium 3.6 Chloride 97 L Carbon Dioxide 26 Anion Gap 10.0 BUN 13 Creatinine 0.9 Estimated GFR (MDRD) 83 L Glucose 155 H Calcium 9.6 Total Bilirubin 0.7 AST 20 ALT 18 Alkaline Phosphatase 86 Troponin I High Sens 4.8 Total Protein 7.3 Albumin 4.5 Globulin 2.8 Albumin/Globulin Ratio 1.6 Lipase 36 Urine Color Urine Clarity Urine pH Ur Specific [place] Urine Protein Urine Glucose (UA) Urine Ketones Urine Occult Blood Urine Nitrite Urine Bilirubin Urine Urobilinogen Ur Leukocyte Esterase Ur Microscopic Review Urine Culture Comments Nasal Adenovirus (PCR) Nasal B. parapertussis DNA (PCR) Nasal Coronavir 229E PCR Nasal Coronavir HKU1 PCR Nasal Coronavir NL63 PCR Nasal Coronavir OC43 PCR Nasal Enterovir/Rhinovir PCR Nasal Influenza B PCR Nasal Influenza A PCR Nasal Parainfluen 1 PCR Nasal Parainfluen 2 PCR Nasal Parainfluen 3 PCR Nasal Parainfluen 4 PCR Nasal RSV (PCR) Nasal B.pertussis DNA PCR Nasal C.pneumoniae (PCR) Keith Human Metapneumo PCR Nasal M.pneumoniae (PCR) Nasal SARS-CoV-2 (PCR) Salicylates Urine Opiates Screen Ur Oxycodone Screen Urine Methadone Screen Ur Propoxyphene Screen Acetaminophen Ur Barbiturates Screen Ur Tricyclics Screen Ur Phencyclidine Scrn Ur Amphetamine Screen U Methamphetamines Scrn U Benzodiazepines Scrn Urine Cocaine Screen U Cannabinoids Screen Ethyl Alcohol 07/16/20 07/16/20 07/16/20 18:00 18:45 19:08 WBC RBC Hgb Hct MCV MCH MCHC RDW Plt Count MPV Neut # (Auto) Lymph # (Auto) [place] # (Auto) Eos # (Auto) Baso # (Auto) Absolute Nucleated RBC Nucleated RBC % Sodium Potassium Chloride Carbon Dioxide Anion Gap BUN Creatinine Estimated GFR (MDRD) Glucose Calcium Total Bilirubin AST ALT Alkaline Phosphatase Troponin I High Sens Total Protein Albumin Globulin Albumin/Globulin Ratio Lipase Urine Color YELLOW Urine Clarity CLEAR Urine pH 8.0 H Ur Specific [place] 1.015 Urine Protein NEGATIVE Urine Glucose (UA) NEGATIVE Urine Ketones NEGATIVE Urine Occult Blood NEGATIVE Urine Nitrite NEGATIVE Urine Bilirubin NEGATIVE Urine Urobilinogen 0.2 (NORMAL) Ur Leukocyte Esterase NEGATIVE Ur Microscopic Review NOT INDICATED Urine Culture Comments NOT INDICATED Nasal Adenovirus (PCR) NOT DETECTED Nasal B. parapertussis DNA (PCR) NOT DETECTED Nasal Coronavir 229E PCR NOT DETECTED Nasal Coronavir HKU1 PCR NOT DETECTED Nasal Coronavir NL63 PCR NOT DETECTED Nasal Coronavir OC43 PCR NOT DETECTED Nasal Enterovir/Rhinovir PCR NOT DETECTED Nasal Influenza B PCR NOT DETECTED Nasal Influenza A PCR NOT DETECTED Nasal Parainfluen 1 PCR NOT DETECTED Nasal Parainfluen 2 PCR NOT DETECTED Nasal Parainfluen 3 PCR NOT DETECTED Nasal Parainfluen 4 PCR NOT DETECTED Nasal RSV (PCR) NOT DETECTED Nasal B.pertussis DNA PCR NOT DETECTED Nasal C.pneumoniae (PCR) NOT DETECTED Keith Human Metapneumo PCR NOT DETECTED Nasal M.pneumoniae (PCR) NOT DETECTED Nasal SARS-CoV-2 (PCR) NOT DETECTED Salicylates < 6.0 Urine Opiates Screen NEGATIVE Ur Oxycodone Screen NEGATIVE Urine Methadone Screen NEGATIVE Ur Propoxyphene Screen NEGATIVE Acetaminophen < 10 L Ur Barbiturates Screen NEGATIVE Ur Tricyclics Screen NEGATIVE Ur Phencyclidine Scrn NEGATIVE Ur Amphetamine Screen NEGATIVE U Methamphetamines Scrn NEGATIVE U Benzodiazepines Scrn NEGATIVE Urine Cocaine Screen NEGATIVE U Cannabinoids Screen NEGATIVE Ethyl Alcohol < 5.0 PD MEDICAL DECISION MAKING - ED course ED course: This 69-year-old gentleman is fed up with his symptoms, that said he has had complete and thorough evaluations without any physical findings here on multiple repeat visits and today he tells me "I think I need to jump off the bridge." The multiple negative work-ups and his affect would suggest at least a ps ychiatric component of his symptoms and today we will ask for telepsychiatric consultation while trying to manage his symptoms. Outsmart panel orderd to test for COVID 19 in patient expected to be hospitalized Telepsychiatric consultation was done with the patient and she also interviewed his by phone. He endorsed to her severe depression and anxiety as well as 2 weeks of worsening suicidal ideation with plan to jump off a bridge. She recommends Zoloft 50 mg a day, Ativan 1 mg every 8 hours as needed for anxiety, trazodone 50 mg at night and inpatient psychiatric stabilization in a voluntary fashion. Departure - Departure Disposition: 65 Psych Hosp/Unit DC/Xfer Clinical Impression: Anxiety, Suicidal ideation GERD (gastroesophageal reflux disease) Qualifiers: Esophagitis presence: with esophagitis Esophagitis bleeding: unspecified whether hemorrhage Qualified Code(s): K21.00 - Gastro-esophageal reflux disease with esophagitis, without bleeding Depression Qualifiers: Depression Type: major depressive disorder Major depression recurrence: single episode Active/Remission status: currently active Major depression episode severity: severe Psychotic features: without psychotic features Qualified Code(s): F32.2 - Major depressive disorder, single episode, severe without psychotic features Condition: Serious
[2020-07-16] MEDS ORDERED: PROMETHAZINE INJ 25 MG in SODIUM CHLORIDE 0.9% 50 ML IV STA (18:42)
[2020-07-16 19:18] LABS: MUDS CUTOFF CONCENTRATIONS CUTOFF CONC BELOW:
[2020-07-16 19:25] LABS: ACETAMINOPHEN < 10 ug/mL (10-30); SALICYLATE < 6.0 mg/dL
[2020-07-16 19:27] LABS: BILIRUBIN,URINE NEGATIVE (NEGATIVE); GLUCOSE, URINE (UA) NEGATIVE (NEGATIVE); KETONES,URINE (UA) NEGATIVE (NEGATIVE); LEUKOCYTE ESTERASE, URINE NEGATIVE (NEGATIVE); NITRITE,URINE NEGATIVE (NEGATIVE); OCCULT BLOOD,URINE NEGATIVE (NEGATIVE); PROTEIN,URINE NEGATIVE (NEGATIVE); UROBILINOGEN,URINE 0.2 (NORMAL) E.U./dL (NORMAL)
[2020-07-16 19:30] LABS: CLARITY,URINE CLEAR (CLEAR)
[2020-07-16 19:35] LABS: AMPHETAMINE SCREEN,URINE NEGATIVE (NEGATIVE); BENZODIAZEPINES SCREEN, URINE NEGATIVE (NEGATIVE); COCAINE SCREEN URINE NEGATIVE (NEGATIVE); METHADONE SCREEN, URINE NEGATIVE (NEGATIVE); METHAMPHETAMINES SCREEN, URINE NEGATIVE (NEGATIVE); OPIATE SCREEN, URINE NEGATIVE (NEGATIVE); OXYCODONE SCREEN, URINE NEGATIVE (NEGATIVE); PROPOXYPHENE SCREEN, URINE NEGATIVE (NEGATIVE); TRICYCLIC ANTIDEPRESSANT,URINE NEGATIVE (NEGATIVE)
[2020-07-16 19:51] LABS: C. PNEUMONIAE- RESP PCR PANEL NOT DETECTED
--- NOTE | 2020-07-16 21:24 | TELEPSYCH PHYS NOTE ---
Telepsych Note - CHIEF COMPLAINT/HX OF PRESENT ILLNESS Chief Complaint and History of Present Illness: Name: David Varela : [birth year]. 69M Date: 07/16/20 Time: 10:50pm Location of patient: [facility] Location of doctor: [facility] Length of consult: 65min This evaluation was conducted via telepsychiatry with the assistance of onsite staff Chief Complaint: SI, anxiety, multiple somatic complaints. History of Present Illness: Pt seen via televideo with the help of onsite staff. Pt is 69 yo male with no pr 69 yo male with no previous psychiatric history, presenting repeatedly to the ED with multiple somatic complaints which have been subjectively progressive and worsening. Per ED, medical work up thus far has been unremarkable outside of evidence of GERD and potential Hiatal hernia. Per ED pts sxs are out of proportion to his physical and testing findings. Pt presented back to the ED today noting worsening sxs of SOB, N/V, GI upset. Also noted to ED that he has been experiencing thoughts of suicide with specific plan to jump off a bridge. Chart reviewed and appreciated. Pt seen and evaluated. Pt is AxOx3. He is calm and cooperative. Pt states he has been back and forth to the ED and outpt physicians repeatedly in the past week. States he has struggled with SOB over the past 10-12 months. States however in the past week with worsening physical sxs of SOB, painful breath, nausea, vomiting, burning throat. Pt reports that he has seen multiple doctors as an outpt and also in the ED. States no one has determined a cause. States they have told him recently that the sxs are caused by an emotional reason. States however he does not understand how that could occur. States what I am feeling is real. He does however states that he has experienced significantly worsening mood over the past month due to his physical sxs and lack of a diagnosis or plan for treatment. States due to his physical sxs he has been unable to sleep for more than 3-4 hours per night. Notes decreased appetite, feelings of depression, anxiety and Severe mental anguish. States that he is losing hope and having difficulty coping. States he cant take the sxs any longer. States he is in pain all the time. States over the past 3 weeks he has been experiencing suicidal thoughts. He states the first thought occurred hypothetically 3 weeks prior. States he was having a lot of pain, burning breath and unable to sleep or eat. Also, with significant nausea. States I asked myself, what can I do to get rid of the pain and he states he came up with killing himself. States that was just a thought then. Admits however that in the past 2 weeks he has contemplated it more. Admits to thinking of a plan to jump off the [place]. States thats how bad it is. I dont want to do it but I cant take this. States its too much. Spoke to the pts significant other, Zarina Hannah @ [phone] who states he has been miserable every day. States everything is getting worse. States he is repeatedly going to doctors, various doctors and nothing is helping. States he has been telling her he cant take it any longer. She states he looks miserable, depressed and unhappy. Not sleeping nor eating. States he has been telling her that he cant do it any longer and wants to kill himself. States she has been telling him to hang on. Thinks he could possibly act on it as he has no hope for help. Of note, prior to the last year he was healthy and fully functional. On ROS, pt denies AVHs, delusions, nor HI. admits to increasing SI thoughts in the past 3 weeks and admits to contemplating a plan to jump off the [place]. Pts significant other confirms the pt has been declining for weeks and has made increasing comments about killing himself including jumping off the bridge. She expressed fear that he could act on it if his physical sxs are not cured Pt presents as a danger to himself and requires inpt stabilization. pt is voluntary for inpt treatment. Collateral: EMR and Hospital Staff. Spoke to the pts significant other, Zarina Hannah @ [phone] [facility] HPI. SI: Denies previous ideation/attempts. HI/Violence: denies Trauma history: none reported Sex./human trafficking: not reported Access to guns: denies Legal Hx: none reported Substance Hx: No drugs or alcohol since 1983. Psychiatric Hx: No previous inpt psychiatric admissions. PCP, prescribes his Wellbutrin. Medical History: Fibromyalgia Medications & Freq: Irbesartan, carafate, Flomax, trazodone Allergies: NKDA Family Psych History/History of suicide: None known Relationship status in relationship. Employment: retired Stressors: somatic sxs Strengths/supports: GF Mental Status Exam: Appearance and attire: hospital attire Attitude and behavior: cooperative Affect and mood: depressed/constricted Association and thought process: linear Thought content: Denies delusions, Denies HI, + SI. Perception: Denies AVHs. Sensorium, memory, and orientation: Alert and grossly oriented. Date Jul 15 2020. Intellectual functioning: average Insight and judgment: impaired - SI/HI/SELF HARM SI/HI/SELF HARM (CURRENT OR HISTORY OF):: SI - PSYCHIATRIC HX/TREATMENT HX Psychiatric: None - MEDICAL HX Does the pt have a hx of MRSA?: No Neurological History: None Eyes, Ears, Nose, Throat: None Cardiovascular: Hypertension Respiratory: Pneumonia Skin: None Endocrine/Autoimmune: None Gastrointestinal: Colon polyps, Hepatitis, Diverticulitis Urinary: Benign prostate hypertrophy Musculoskeletal: None Blood Disorders: None - HOME MEDICATIONS Home Meds (as last confirmed): Patient History Medication Instructions Recorded Confirmed Irbesartan [Avapro] 1 tab PO DAILY 07/14/20 07/15/20 Sucralfate [Carafate] 1 tab PO PRN PRN 07/14/20 07/15/20 Tamsulosin [Flomax] 1 tab PO DAILY 07/14/20 07/15/20 traZODone [Desyrel] 0.5 tab PO PRN PRN 07/14/20 07/15/20 - ALLERGIES Allergies (as last confirmed): Allergies Allergy/AdvReac Type Severity Reaction Status Date / Time No Known Drug Allergies Allergy Verified 07/16/20 17:56 - TREATMENT/PHARMACOLOGICAL RECOMMENDATION Treatment - Pharmacological - Therapy Recommendations: Diagnosis: 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 Unspecified Depressive Disorder, Unspecified Anxiety Disorder Impression/Risk Assessment: 69 yo male with no previous psychiatric history, presenting repeatedly to the ED with multiple somatic complaints which have been subjectively progressive and worsening. Per ED, medical work up thus far has been unremarkable outside of evidence of GERD and potential Hiatal hernia. Per ED pts sxs are out of proportion to his physical and testing findings. Pt now reports 2-3 week period of worsening depressive and anxiety sxs. Notes mental anguish and severe anxiety. Now with suicidal ideation for the past 2 weeks including contemplating plan and has made Si comments frequently in the past 2 weeks to his significant other who expressed that she fears he would act on the thoughts. Pt presents as a danger to himself and requires inpt stabilization. pt is voluntary for inpt treatment. Treatment Recommendations: Pt requires acute inpt psychiatric admission For safety, stabilization and treatment. Voluntary admission. Medication Recommendations: Start Zoloft 50mg po Daily targeting depressive and anxiety sxs Offer Ativan 1mg po Q 8 hours PRN anxiety, panic sxs Offer Trazodone 50mg po HS PRN insomnia. - TIME SPENT & PROVIDER LOCATION Telepsych consultation conducted via videoconferencing: Yes List names and roles of persons who participated in consult: ellie timmons Reed (significant other) Telepsych Provider Location: [place] Time Telepsych consult began: 22:50 Time Telepsych consult completed: 23:55
[2020-07-16] MEDS ORDERED: traZODone 50 MG TABLET PO PRN (21:50)
[2020-07-16] MEDS ORDERED: LORazepam 1 MG TABLET PO PRN (21:50)
[2020-07-17] MEDS ORDERED: PANTOPRAZOLE 40 MG TABLET PO STA (07:58)
--- NOTE | 2020-07-17 08:01 | ED Physician Documentation ---
ED Addendum - Addendum Addendum: 07/17/20 07:59The patient rested well through the evening without any problems. He denied any recurrent chest pain. He has been accepted at a psychiatric facility that was not able to take him until the morning. He was advised of that and did not have any problems with that. Ambulance will be here to pick him up this morning. He will be transferred in stable condition.
[2020-07-17] MEDS ORDERED: SERTRALINE 50 MG TABLET PO SCH (09:00)
[2020-07-17 09:21] VITALS: BP 133/78
== END 2020-07-17 09:15 ==
LOC: ED 17:41
DX: R45.851 Suicidal ideations (principal); F32.2 Major depressive disorder, single episode, severe without psychotic features; F43.23 Adjustment disorder with mixed anxiety and depressed mood; F41.9 Anxiety disorder, unspecified; K21.00 Gastro-esophageal reflux disease with esophagitis, without bleeding; I10 Essential (primary) hypertension; Z20.822 Contact with and (suspected) exposure to COVID-19
CPT/HCPCS: 36415; 71045; 80053; 81003; 83690; 84484; 85025; 87631; 93005; 96365; 99285; A9270; G0426; J7040; J8499; 0202U; 80306; 80307; 80320; 80329; 81001; 87086

== ENCOUNTER 2020-08-15 13:40 | Outpatient (CLI) | payer MEDICARE ==
--- NOTE | 2020-08-16 08:47 | XRAY Report ---
PROCEDURE: Chest 2 View X-Ray INDICATIONS: SHORTNESS OF BREATH TECHNIQUE: 2 view(s) of the chest. COMPARISON: Prior chest plain films and chest CT from 07/16/2020 and 07/14/2020, respectively. FINDINGS: Surgical changes and devices: None. Lungs and pleura: No pleural effusions or pneumothorax. Lungs are clear, but the lung volumes are l arge. Mediastinum: Mediastinal contours are normal. Heart size is normal. Bones and chest wall: No suspicious bony abnormalities. Soft tissues appear unremarkable. IMPRESSION: Large lung volumes, no pneumonia seen. COPD suspected, no sign of cardiomegaly or CHF. Reviewed by: Rell Chun MD on 08/16/2020 8:45 AM [facility] Approved by: Rell Chun MD on 08/16/2020 8:45 AM [facility] Station ID: [id number]
== END 2020-08-15 23:59 | disposition home or self-care (01) ==
LOC: DI.WCP 13:40
PROVIDERS: ATTEND Family Medicine
DX: R06.02 Shortness of breath (principal); J98.2 Interstitial emphysema

== ENCOUNTER 2020-09-07 09:08 | Outpatient (CLI) | payer MEDICARE ==
--- NOTE | 2020-09-07 12:11 | XRAY Report ---
PROCEDURE: Chest 2 View X-Ray INDICATIONS: PNUEMOMEDIASTINUM TECHNIQUE: 2 view(s) of the chest. COMPARISON: Chest x-ray 08/15/2020 FINDINGS: Surgical changes and devices: None. Lungs and pleura: No pleural effusions or pneumothorax. Lungs are clear. Mediastinum: Mediastinal contours are normal. Heart size is normal. Bones and chest wall: No suspicious bony abnormalities. Soft tissues appear unremarkable. IMPRESSION: No acute pulmonary process. No visualized pneumomediastinum. Reviewed by: Barbra Devries MD on 09/07/2020 12:10 PM [facility] Approved by: Barbra Devries MD on 09/07/2020 12:10 PM [facility] Station ID: [id number]
== END 2020-09-07 09:09 | disposition home or self-care (01) ==
LOC: DI.N 09:08
PROVIDERS: ATTEND Family Medicine
DX: J98.2 Interstitial emphysema (principal); R07.89 Other chest pain

== ENCOUNTER 2020-09-08 19:38 | Emergency (ER) | payer MEDICARE ==
[2020-09-08 19:46] VITALS: BP 153/95
[2020-09-08] MEDS ORDERED: LORazepam 1 MG TABLET PO STA (20:03)
--- NOTE | 2020-09-08 20:12 | ED Physician Documentation ---
History of Present Illness - Stated complaint Stated Complaint: NAUSEA - Chief complaint Chief Complaint: Abd Pain - History obtained from History obtained from: Patient - History of Present Illness Timing: Today Pain level max: 0 Pain level now: 0 - Additonal information Additional information: Patient is a 69-year-old male who presents to the emergency department complaining of "respiratory GERD". He states he had a fundal surgery at [facility] in May but the symptoms have been worse since that time. Is been seen in the emergency department several times for same. He has been trying to taper down his Prilosec recently. He states that he is on trazodone for sleep but is not sleeping well. He states that he had been on Ativan in the past and this did help. Patient has not talked to his GI specialist or his doctor recently. No fevers. No chills. No chest pain. Patient recently had a psychiatric admission for depression. Review of Systems Constitutional: denies: Fever, Chills Nose: denies: Rhinorrhea / runny nose, Congestion Throat: denies: Sore throat Cardiac: denies: Chest pain / pressure, Palpitations Respiratory: denies: Cough GI: denies: Vomiting, Diarrhea Skin: denies: Rash Musculoskeletal: denies: Neck pain, Back pain Neurologic: denies: Headache PD PAST MEDICAL HISTORY - Past Medical History Cardiovascular: Hypertension Respiratory: Pneumonia Neuro: None Endocrine/Autoimmune: None GI: GERD, Colon polyps, Hepatitis, Diverticulitis : Benign prostate hypertrophy HEENT: None Psych: None Musculoskeletal: None Derm: None Other Past Medical History: Respiratory GERD - Past Surgical History Past Surgical History: Yes HEENT: Rhinoplasty, Tonsil/Adenoidectomy - Present Medications Home Medications: Ambulatory Orders Medication Instructions Recorded Confirmed Sucralfate [Carafate] 1 tab PO PRN PRN 07/14/20 07/15/20 Tamsulosin [Flomax] 1 tab PO DAILY 07/14/20 07/15/20 traZODone [Desyrel] 0.5 tab PO PRN PRN 07/14/20 07/15/20 Fluticasone 110 Mcg [Flovent] 2 puffs INH BID 09/08/20 09/08/20 LORazepam [Ativan] 1 mg PO Q8H PRN #10 tablet 09/08/20 Omeprazole Magnesium [Prilosec] 20 mg PO QID 09/08/20 09/08/20 Ondansetron Odt [Zofran Odt] 4 mg TL Q6H PRN 09/08/20 09/08/20 - Allergies Allergies/Adverse Reactions: Allergies Allergy/AdvReac Type Severity Reaction Status Date / Time No Known Drug Allergies Allergy Verified 09/08/20 19:46 - Social History Does the pt smoke?: No Smoking Status: Never smoker Does the pt drink ETOH?: No Does the pt have substance abuse?: No - Immunizations Immunizations are current?: Yes - POLST Patient has POLST: No PD ED PE NORMAL - Vitals Vital signs reviewed: Yes - General General: Alert and oriented X 3, No acute distress, Other (Patient appears very anxious in the emergency department.) - HEENT HEENT: Moist mucous membranes - Neck Neck: Supple, no meningeal sign - Cardiac Cardiac: RRR, Strong equal pulses - Respiratory Respiratory: No respiratory distress, Clear bilaterally - Abdomen Abdomen: Soft, Non tender, Non distended - Derm Derm: Warm and dry - Extremities Extremities: No edema - Neuro Neuro: Alert and oriented X 3 - Psych Psych: Normal mood, Normal affect Results - Vitals Vitals: Vital Signs - 24 hr 09/08/20 09/08/20 19:39 20:02 Temperature 36.1 C L 36.1 C L Heart Rate 65 65 Respiratory 28 H Rate Blood Pressure 153/95 H 153/95 H O2 Saturation 100 Oxygen O2 Source Room air PD MEDICAL DECISION MAKING - ED course Complexity details: reviewed old records, re-evaluated patient, considered differential, d/w patient ED course: Patient appears very anxious. Given Ativan and does feel better. Will prescribe a small amount of this for home. We will have him follow-up with his doctor for further care. Patient counseled regarding signs and symptoms for which I believe and urgent re-evaluation would be necessary. Patient with good understanding of and agreement to plan and is comfortable going home at this time This document was made in part using voice recognition software. While efforts are made to proofread this document, sound alike and grammatical errors may occur. Departure - Departure Disposition: 01 Home, Self Care Clinical Impression: Anxiety GERD (gastroesophageal reflux disease) Qualifiers: Esophagitis presence: with esophagitis Esophagitis bleeding: without hemorrhage Qualified Code(s): K21.00 - Gastro-esophageal reflux disease with esophagitis, without bleeding Condition: Good Instructions: ED GERD, ED Panic Attack Follow-Up: Bertha Dennis DO [Primary Care Provider] - Within 1 week Prescriptions: LORazepam [Ativan] 1 mg PO Q8H PRN #10 tablet PRN Reason: Anxiety Comments: Follow-up with your doctor for further care. Return if you worsen. You do this should discuss long-term options for anxiety. Discharge Date/Time: 09/08/20 21:05
== END 2020-09-08 21:05 | disposition home or self-care (01) ==
LOC: ED 19:38
DX: K21.00 Gastro-esophageal reflux disease with esophagitis, without bleeding (principal); F41.9 Anxiety disorder, unspecified; I10 Essential (primary) hypertension
CPT/HCPCS: 99282; 99284; J8499

== ENCOUNTER 2020-09-19 13:55 | Emergency (ER) | payer MEDICARE ==
--- NOTE | 2020-09-19 14:35 | XRAY Report ---
PROCEDURE: Chest 1 View X-Ray INDICATIONS: Chest Pain TECHNIQUE: One view of the chest was acquired. COMPARISON: CXR 09/07/2020, 07/08/2020. CT chest 07/14/2020. FINDINGS: Surgical changes and devices: None. Lungs and pleura: No pleural effusions or pneumothorax. Lungs are clear. Mediastinum: Mediastinal contours appear normal. Heart size is normal. Bones and chest wall: No suspicious bony lesions. Overlying soft tissues appear unremarkable. IMPRESSION: No acute cardiopulmonary abnormality. Reviewed by: Marcus Hernández MD on 09/19/2020 2:33 PM PDT Approved by: Marcus Hernández MD on 09/19/2020 2:33 PM PDT Station ID: [id number]
[2020-09-19 15:17] LABS: BASOPHILS # (AUTO) 0.1 10^3/uL (0.0-0.1); BASOPHILS % (AUTO) 0.6 %; EOSINOPHILS % (AUTO) 0.1 %; HCT - HEMATOCRIT 41.4 % (42.0-52.0); HGB - HEMOGLOBIN 14.4 g/dL (14.0-18.0); LYMPHOCYTES # (AUTO) 0.5 10^3/uL (1.5-3.5); MEAN CORPUSCULAR HEMOGLOBIN 31.6 pg (27.0-31.0); MEAN CORPUSCULAR HGB CONC 34.8 g/dL (32.0-36.0); MEAN CORPUSCULAR VOLUME 90.8 fL (80.0-94.0); MEAN PLATELET VOLUME 9.2 fL (7.4-11.4); MONOCYTES # (AUTO) 0.4 10^3/uL (0.0-1.0); MONOCYTES % (AUTO) 4.9 %; NEUTROPHILS # (AUTO) 6.8 10^3/uL (1.5-6.6); NEUTROPHILS % (AUTO) 88.3 %; PLT - PLATELET COUNT 213 10^3/uL (130-450); RED BLOOD COUNT 4.56 10^6/uL (4.70-6.10); RED CELL DISTRIBUTION WIDTH 12.7 % (12.0-15.0); WHITE BLOOD COUNT 7.7 x10^3/uL (4.8-10.8)
[2020-09-19 15:35] LABS: ALBUMIN 4.3 g/dL (3.2-5.5); ALBUMIN/GLOBULIN RATIO 1.8 (1.0-2.2); BILIRUBIN,TOTAL 0.8 mg/dL (0.2-1.0); CALCIUM 9.1 mg/dL (8.5-10.3); CREATININE 0.8 mg/dL (0.6-1.2); POTASSIUM 3.8 mmol/L (3.5-5.0); TOTAL PROTEIN 6.7 g/dL (6.7-8.2)
--- NOTE | 2020-09-19 16:07 | ED Physician Documentation ---
History of Present Illness - Stated complaint Stated Complaint: WEAKNESS/DIZZINESS - Chief complaint Chief Complaint: Neuro - Additonal information Additional information: 69-year-old male presents the emergency department for evaluation of near syncope and worsening exhaustion. He does have a history of Crohn's disease severe GERD hyperlipidemia hypertension diverticulosis. He reports that this exhaustion has been an ongoing and recurrent problem since he had a Anette fundoplication in late June. That procedure was complicated by pneumomediastinum. He states that this morning he was sitting on a couch and when he went to stand up he felt as though he was going to pass out though he did not. He reports that for weeks he feels labored when he breathes and it hurts to take a deep breath. He has no fevers, no cough no vomiting. He does endorse that recently he was constipated which resolved with MiraLAX and an enema. He denies hematochezia or melena. Patient's biggest concern is the pain he has when he breathes as well as the worsening acid reflux. He is scheduled to see his bat carrier on 27 September. Currently takes Protonix twice daily and he did attempt to take Carafate last night. He has sometimes found relief of this pain when taking lidocaine here in the emergency department For this fatigue and shortness of breath he has been seen twice within the last week at [facility] with an unremarkable work-up. This gentleman appears exceedingly ancious. Decliens lorazepam as it make felicia feel funny. Review of Systems Constitutional: reports: Fatigue. denies: Fever, Chills Eyes: denies: Decreased vision Ears: denies: Loss of hearing, Ear pain Nose: denies: Rhinorrhea / runny nose Throat: denies: Dental pain / toothache, Oral lesions / sores, Sore throat Cardiac: reports: Palpitations. denies: Calf pain Respiratory: reports: Dyspnea. denies: Cough, Hemoptysis, Wheezing GI: reports: Constipation. denies: Abdominal Pain, Nausea, Vomiting, Hematemesis, Bloody / black stool : denies: Dysuria, Frequency, Unable to Void Skin: reports: Reviewed and negative Musculoskeletal: reports: Reviewed and negative Neurologic: reports: Generalized weakness. denies: Syncope, Seizure, Headache, Head injury Psychiatric: reports: Reviewed and negative PD PAST MEDICAL HISTORY - Past Medical History Cardiovascular: Hypertension Respiratory: Pneumonia Neuro: None Endocrine/Autoimmune: None GI: GERD, Colon polyps, Hepatitis, Diverticulitis : Benign prostate hypertrophy HEENT: None Psych: None Musculoskeletal: None Derm: None - Past Surgical History Past Surgical History: Yes HEENT: Rhinoplasty, Tonsil/Adenoidectomy - Present Medications Home Medications: Ambulatory Orders Medication Instructions Recorded Confirmed Sucralfate [Carafate] 1 tab PO PRN PRN 07/14/20 09/19/20 Tamsulosin [Flomax] 1 tab PO DAILY 07/14/20 09/19/20 traZODone [Desyrel] 0.5 tab PO PRN PRN 07/14/20 09/19/20 Fluticasone 110 Mcg [Flovent] 2 puffs INH BID 09/08/20 09/19/20 LORazepam [Ativan] 1 mg PO Q8H PRN #10 tablet 09/08/20 09/19/20 Omeprazole Magnesium [Prilosec] 20 mg PO QID 09/08/20 09/19/20 Ondansetron Odt [Zofran Odt] 4 mg TL Q6H PRN 09/08/20 09/19/20 Lidocaine Viscous 2% [Xylocaine 5 ml MM BID #100 ml 09/19/20 Viscous 2%] Sucralfate [Carafate] 1 gm PO BID #60 tablet 09/19/20 hydrOXYzine HCL [Hydroxyzine HCl] 25 mg PO BID PRN #30 tablet 09/19/20 - Allergies Allergies/Adverse Reactions: Allergies Allergy/AdvReac Type Severity Reaction Status Date / Time No Known Drug Allergies Allergy Verified 09/19/20 14:02 - Social History Does the pt smoke?: No Smoking Status: Never smoker Does the pt drink ETOH?: No Does the pt have substance abuse?: No - Immunizations Immunizations are current?: Yes - POLST Patient has POLST: No PD ED PE EXPANDED - General General: Alert, No acute distress, Anxious - Cardiac Cardiac: Regular Rate, Regular Rhythm, Radial strong equal, Pedal strong equal, Cap refill < 2 sec. No: Murmur Present - Respiratory Respiratory: Clear to ausultation nisha. No: Distress, Labored - Abdomen Abdomen: Normal Bowel sounds. No: Tender to palpation - Derm Derm: Normal color, Warm and dry - Extremities Extremities: Normal. No: Deformity, Tenderness, Pedal edema bilateral, Right calf TTP/cord, Left calf TTP/cord - Neuro Neuro: Alert and Oriented X 3. No: Confused, Disoriented - GCS Eye Opening: Spontaneous Motor: Obeys Commands Verbal: Oriented Total: 15 - Psych Psych: Anxious Results - Vitals Vitals: Vital Signs - 24 hr 09/19/20 09/19/20 09/19/20 14:04 15:07 16:39 Temperature 36.6 C Heart Rate 71 67 Heart Rate [ 67 Sitting] Heart Rate [ 66 Standing] Heart Rate [ 61 Supine] Respiratory 19 16 Rate Blood Pressure 153/85 H 167/68 H Blood Pressure 151/102 H [Sitting] Blood Pressure 152/66 H [Standing] Blood Pressure 159/89 H [Supine] O2 Saturation 100 98 Oxygen O2 Source Room air - EKG (time done) 1406 Rate: Rate (enter#) (69) Rhythm: NSR [place]: Normal Intervals: Prolonged SC QRS: Low voltage Ischemia: Non specific changes Compare to prior EKG: Unchanged from prior EKG Computer interpretation: Agree with computer - Labs Labs: Laboratory Tests 09/19/20 09/19/20 09/19/20 15:14 15:14 15:14 WBC 7.7 RBC 4.56 L Hgb 14.4 Hct 41.4 L MCV 90.8 MCH 31.6 H MCHC 34.8 RDW 12.7 Plt Count 213 MPV 9.2 Neut # (Auto) 6.8 H Lymph # (Auto) 0.5 L [place] # (Auto) 0.4 Eos # (Auto) 0.0 Baso # (Auto) 0.1 Absolute Nucleated RBC 0.00 Nucleated RBC % 0.0 Sodium 129 L Potassium 3.8 Chloride 93 L Carbon Dioxide 27 Anion Gap 9.0 BUN 19 Creatinine 0.8 Estimated GFR (MDRD) 96 Glucose 117 H Calcium 9.1 Total Bilirubin 0.8 AST 24 ALT 21 Alkaline Phosphatase 60 Troponin I High Sens 5.4 B-Natriuretic Peptide Total Protein 6.7 Albumin 4.3 Globulin 2.4 Albumin/Globulin Ratio 1.8 Lipase 34 TSH Urine Color Urine Clarity Urine pH Ur Specific [place] Urine Protein Urine Glucose (UA) Urine Ketones Urine Occult Blood Urine Nitrite Urine Bilirubin Urine Urobilinogen Ur Leukocyte Esterase Urine RBC Urine WBC Ur Squamous Epith Cells Amorphous Sediment Urine Bacteria Ur Microscopic Review Urine Culture Comments 09/19/20 09/19/20 09/19/20 15:14 15:14 16:48 WBC RBC Hgb Hct MCV MCH MCHC RDW Plt Count MPV Neut # (Auto) Lymph # (Auto) [place] # (Auto) Eos # (Auto) Baso # (Auto) Absolute Nucleated RBC Nucleated RBC % Sodium Potassium Chloride Carbon Dioxide Anion Gap BUN Creatinine Estimated GFR (MDRD) Glucose Calcium Total Bilirubin AST ALT Alkaline Phosphatase Troponin I High Sens B-Natriuretic Peptide 51 Total Protein Albumin Globulin Albumin/Globulin Ratio Lipase TSH 0.74 Urine Color YELLOW Urine Clarity CLOUDY Urine pH 8.0 H Ur Specific [place] 1.015 Urine Protein NEGATIVE Urine Glucose (UA) NEGATIVE Urine Ketones NEGATIVE Urine Occult Blood NEGATIVE Urine Nitrite NEGATIVE Urine Bilirubin NEGATIVE Urine Urobilinogen 1 (NORMAL) Ur Leukocyte Esterase NEGATIVE Urine RBC 0-5 Urine WBC 0-3 Ur Squamous Epith Cells NONE SEEN Amorphous Sediment Marked Urine Bacteria Rare Ur Microscopic Review INDICATED Urine Culture Comments NOT INDICATED - Rads (name of study) CXR Radiology: Final report received (No acute cardiopulmonary process) Pulmonary angio Radiology: Final report received PD MEDICAL DECISION MAKING - ED course Complexity details: reviewed results, re-evaluated patient, considered differential, d/w patient ED course: 69-year-old very anxious appearing male presents the emergency department with reported labored breathing exhaustion and worsening acid reflux. He did have a Anette fundoplication in June of this year and is scheduled to see his GI doctor in about 1 week's time. Because of the reported pleuritic pain we did do a CT pulmonary angio that showed no PE. Screening EKG was nonischemic. High-sensitivity troponin is negative. Chest x-ray shows no pneumonia. BNP is not elevated. He has no clinical findings suggestive of heart failure. His thyroid was normal. Patient continues to express discomfort with bleeding breathing which he thinks is due to worsening GERD. I offered Maalox which he declined but he did accept the lidocaine. I have suggested that he continue the Protonix twice daily as well as begin taking Carafate 3 times a day. Patient reports that he has labored breathing but this is a subjective finding only as objectively he has no hypoxia or tachypnea and his cardiopulmonary auscultation is unremarkable. I did suggest to the patient that his anxiety may be contributing to some of his symptoms. He does have Ativan at home but does not like the way it makes him feel. I have suggested that he take hydroxyzine at night which should help with anxiety as well as sleep. Departure - Departure Disposition: 01 Home, Self Care Clinical Impression: Anxiety GERD (gastroesophageal reflux disease) Qualifiers: Esophagitis presence: with esophagitis Esophagitis bleeding: without hemorrhage Qualified Code(s): K21.00 - Gastro-esophageal reflux disease with esophagitis, without bleeding Condition: Stable Record reviewed to determine appropriate education?: Yes Follow-Up: Bertha Dennis DO [Primary Care Provider] - Prescriptions: Sucralfate [Carafate] 1 gm PO BID #60 tablet hydrOXYzine HCL [Hydroxyzine HCl] 25 mg PO BID PRN #30 tablet PRN Reason: Anxiety Lidocaine Viscous 2% [Xylocaine Viscous 2%] 5 ml MM BID #100 ml Comments: David estrella were seen in the emergency department today for painful breathing and the sensation that you are short of air. Your EKG and screening labs are all essentially normal. The CAT scan of your chest does not show a pulmonary embolus. As we discussed I suspect that the cause of your symptoms is worsening acid reflux as well as anxiety. I have prescribed hydroxyzine you can take this twice a day it may make you sleepy but it should help with anxiety and should help contribute to sleep at night. I would like you to start taking the Carafate at least twice daily though you can take it 4 times a day. Please avoid using Carafate within an hour of other medications as it will inhibit the absorption of those medications. Please continue to take the Protonix twice daily I have also prescribed a small amount of viscous lidocaine that you can use 2 or 3 times a day to help with the acid reflux. It is important that you discuss this ED visit with your bat carrier to see if there is any further treatment that can be done to help with the severe reflux.
[2020-09-19] MEDS ORDERED: IOVERSOL 320 100 ML VIAL IVP ONE ×2 (16:22→16:48)
[2020-09-19 16:57] LABS: BILIRUBIN,URINE NEGATIVE (NEGATIVE); GLUCOSE, URINE (UA) NEGATIVE (NEGATIVE); KETONES,URINE (UA) NEGATIVE (NEGATIVE); LEUKOCYTE ESTERASE, URINE NEGATIVE (NEGATIVE); NITRITE,URINE NEGATIVE (NEGATIVE); OCCULT BLOOD,URINE NEGATIVE (NEGATIVE); PROTEIN,URINE NEGATIVE (NEGATIVE); UROBILINOGEN,URINE 1 (NORMAL) E.U./dL (NORMAL)
--- NOTE | 2020-09-19 16:58 | CT Report ---
PROCEDURE: ANGIO CHEST W/WO INDICATIONS: r/o PE CONTRAST: IV CONTRAST: Optiray 320 ml: 80 PO CONTRAST: *NO PO CONTRAST TECHNIQUE: After the administration of intravenous contrast, 2 mm thick sections acquired from the pulmonary api yolanda to the posterior costophrenic angles. 3-dimensional maximum intensity projection (MIP) coronal a nd sagittal reformats were then acquired through the thorax. For radiation dose reduction, the follow ing was used: automated exposure control, adjustment of mA and/or kV according to patient size. COMPARISON: CT chest 07/14/2020. FINDINGS: Image quality: Excellent. Pulmonary arteries: Pulmonary arteries are normal in size, and demonstrate no intraluminal filling d efects to suggest central pulmonary embolism. Lungs and pleura: Lungs are clear but there is a mild interstitial prominence in the lung volumes ar e relatively large on the frontal projection, potentially representing evidence of prior smoking hist ory.. No pleural effusions or pneumothorax. Central and peripheral airways are patent. Mediastinum: Heart size is normal, without pericardial effusion. No mediastinal or hilar adenopathy . Thoracic aorta is normal in caliber and enhancement. Esophagus is normal in caliber, without hiat al hernia. Bones and chest wall: No suspicious bony lesions. Ribs and thoracic spine appear intact throughout. The thyroid is normal. No axillary or supraclavicular adenopathy. Abdomen: Visualized upper abdominal solid organs appear normal in the early arterial phase of enhanc ement. IMPRESSION: No pulmonary embolus is found. Lung volumes are large and there is a mild interstitial prominence sug gestive of prior smoking history. Please correlate for presence or absence of COPD. Reviewed by: Rell Chun MD on 09/19/2020 4:56 PM PDT Approved by: Rell Chun MD on 09/19/2020 4:56 PM PDT Station ID: [id number]
[2020-09-19 17:00] LABS: CLARITY,URINE CLOUDY (CLEAR)
[2020-09-19] MEDS ORDERED: MAG HYDROX/AL HYDROX/SIMETH 30 ML UDC PO STA (17:12)
[2020-09-19] MEDS ORDERED: LIDOCAINE VISCOUS 2% 15 ML UDC MM STA (17:12)
[2020-09-19 17:14] LABS: BACTERIA,URINE Rare /HPF (None Seen); RBC,URINE 0-5 /HPF (0-5); SQUAMOUS EPITHELIAL CELL,UR NONE SEEN (<= Few); WBC,URINE 0-3 /HPF (0-3)
[2020-09-19 17:15] LABS: AMORPHOUS SEDIMENT,UR Marked /LPF
[2020-09-19] MEDS ORDERED: hydrOXYzine PAMOATE 25 MG CAPSULE PO STA (17:23)
[2020-09-19 17:58] VITALS: BP 166/96
== END 2020-09-19 18:08 | disposition home or self-care (01) ==
LOC: ED 13:55
DX: K21.00 Gastro-esophageal reflux disease with esophagitis, without bleeding (principal); F41.9 Anxiety disorder, unspecified; I10 Essential (primary) hypertension
CPT/HCPCS: 36415; 71045; 71275; 80053; 81001; 83690; 83880; 84443; 84484; 85025; 93005; 99284; A9270; Q9967; 81003; 87086

== ENCOUNTER 2020-11-01 12:01 | Outpatient (CLI) | payer MEDICARE | END 2020-11-01 12:02 | disposition home or self-care (01) | LOC: LAB 12:01 | PROVIDERS: ATTEND Emergency Medicine | DX: B37.9 Candidiasis, unspecified (principal) | CPT/HCPCS: 87220 ==

== ENCOUNTER 2021-02-07 11:50 | Outpatient (CLI) | payer MEDICARE | END 2021-02-07 23:59 | disposition home or self-care (01) | LOC: LAB.N 11:50 | PROVIDERS: ATTEND Physician Assistant Medical | DX: R05 Cough (principal); Z20.822 Contact with and (suspected) exposure to COVID-19 ==

== ENCOUNTER 2021-05-08 10:54 | Outpatient (CLI) | payer MEDICARE ==
[2021-05-08 17:31] LABS: BASOPHILS # (AUTO) 0.1 10^3/uL (0.0-0.1); BASOPHILS % (AUTO) 0.6 %; EOSINOPHILS # (AUTO) 0.1 10^3/uL (0.0-0.7); EOSINOPHILS % (AUTO) 0.3 %; HCT - HEMATOCRIT 46.7 % (42.0-52.0); HGB - HEMOGLOBIN 15.2 g/dL (14.0-18.0); LYMPHOCYTES # (AUTO) 0.3 10^3/uL (1.5-3.5); LYMPHOCYTES % (AUTO) 1.7 %; MEAN CORPUSCULAR HEMOGLOBIN 30.9 pg (27.0-31.0); MEAN CORPUSCULAR HGB CONC 32.5 g/dL (32.0-36.0); MEAN CORPUSCULAR VOLUME 94.9 fL (80.0-94.0); MEAN PLATELET VOLUME 10.3 fL (7.4-11.4); MONOCYTES # (AUTO) 0.8 10^3/uL (0.0-1.0); MONOCYTES % (AUTO) 4.3 %; NEUTROPHILS % (AUTO) 92.7 %; PLT - PLATELET COUNT 220 10^3/uL (130-450); RED BLOOD COUNT 4.92 10^6/uL (4.70-6.10); WHITE BLOOD COUNT 19.4 x10^3/uL (4.8-10.8)
[2021-05-08 18:26] LABS: ALBUMIN 4.4 g/dL (3.2-5.5); ALBUMIN/GLOBULIN RATIO 1.6 (1.0-2.2); ALKALINE PHOSPHATASE 80 IU/L (42-121); ALT ALANINE AMINOTRANSFERASE 15 IU/L (10-60); AST ASPARTATE AMINOTRANSFERASE 22 IU/L (10-42); BILIRUBIN,TOTAL 0.7 mg/dL (0.2-1.0); BUN - BLOOD UREA NITROGEN 16 mg/dL (6-20); CALCIUM 9.1 mg/dL (8.5-10.3); CARBON DIOXIDE - CO2 27 mmol/L (21-32); CHLORIDE 99 mmol/L (101-111); CHOL/HDL RATIO 3.3 (<5.0); CHOLESTEROL 166 mg/dL; CREATININE 0.8 mg/dL (0.6-1.2); GFR - MDRD 95 (>89); GLUCOSE 127 mg/dL (70-100); HDL CHOLESTEROL 51 mg/dL; LDL CHOLESTEROL,CALCULATED 101 mg/dL; POTASSIUM 4.1 mmol/L (3.5-5.0); SODIUM 135 mmol/L (135-145); TOTAL PROTEIN 7.2 g/dL (6.7-8.2); TRIGLYCERIDES 72 mg/dL; VLDL CHOLESTEROL 14 mg/dL
== END 2021-05-08 23:59 | disposition home or self-care (01) ==
LOC: LAB.WCP 10:54
PROVIDERS: ATTEND Family Medicine
DX: E78.5 Hyperlipidemia, unspecified (principal); Z12.5 Encounter for screening for malignant neoplasm of prostate; I10 Essential (primary) hypertension; R76.0 Raised antibody titer
CPT/HCPCS: 36415; 80053; 80061; 85025; G0103; 83721; 84153; 86803; 87522

== ENCOUNTER 2021-05-10 08:00 | Outpatient (CLI) | payer MEDICARE ==
[2021-05-10 12:45] LABS: BASOPHILS # (AUTO) 0.1 10^3/uL (0.0-0.1); BASOPHILS % (AUTO) 0.9 %; EOSINOPHILS # (AUTO) 0.3 10^3/uL (0.0-0.7); EOSINOPHILS % (AUTO) 4.7 %; HCT - HEMATOCRIT 42.7 % (42.0-52.0); HGB - HEMOGLOBIN 14.4 g/dL (14.0-18.0); LYMPHOCYTES # (AUTO) 0.7 10^3/uL (1.5-3.5); LYMPHOCYTES % (AUTO) 10.7 %; MEAN CORPUSCULAR HEMOGLOBIN 31.8 pg (27.0-31.0); MEAN CORPUSCULAR HGB CONC 33.7 g/dL (32.0-36.0); MEAN CORPUSCULAR VOLUME 94.3 fL (80.0-94.0); MEAN PLATELET VOLUME 10.4 fL (7.4-11.4); MONOCYTES # (AUTO) 0.5 10^3/uL (0.0-1.0); NEUTROPHILS # (AUTO) 5.1 10^3/uL (1.5-6.6); NEUTROPHILS % (AUTO) 75.4 %; PLT - PLATELET COUNT 198 10^3/uL (130-450); RED BLOOD COUNT 4.53 10^6/uL (4.70-6.10); RED CELL DISTRIBUTION WIDTH 12.1 % (12.0-15.0); WHITE BLOOD COUNT 6.8 x10^3/uL (4.8-10.8)
[2021-05-10 13:41] LABS: PLATELET ESTIMATE, MANUAL NORMAL (130-450,000) (NORMAL); PLATELET MORPHOLOGY NORMAL APPEARANCE (NORMAL); RBC MORPHOLOGY (MULTIPLE) NORMAL APPEARANCE (NORMAL)
[2021-05-10 13:43] LABS: WBC MORPHOLOGY (MULTIPLE) NORMAL APPEARANCE (NORMAL)
[2021-05-10 13:45] LABS: DIFFERENTIAL COMMENT MANUAL=AUTO DIFF
[2021-05-16 12:26] LABS: HCV RNA QNT <1.18 NOT DETECTED LogIU/mL; HCV RNA QUANT RT PCR <15 NOT DETECTED IU/mL
== END 2021-05-10 23:59 | disposition home or self-care (01) ==
LOC: LAB.WCP 08:00
PROVIDERS: ATTEND Family Medicine
DX: D72.829 Elevated white blood cell count, unspecified (principal); R76.0 Raised antibody titer
CPT/HCPCS: 36415; 81599; 85025; 87522; 88184; 88185; 88189

== ENCOUNTER 2021-05-22 08:00 | Outpatient (CLI) | payer MEDICARE | END 2021-05-22 23:59 | disposition home or self-care (01) | LOC: LAB.N 08:00 | PROVIDERS: ATTEND Physician Assistant | DX: R05.3 Chronic cough (principal); Z20.822 Contact with and (suspected) exposure to COVID-19 ==

== ENCOUNTER 2021-06-30 15:26 | Outpatient (CLI) | payer MEDICARE | END 2021-06-30 23:59 | disposition home or self-care (01) | LOC: LAB.N 15:26 | PROVIDERS: ATTEND Family Medicine | DX: R05.9 Cough, unspecified (principal); R06.2 Wheezing; Z20.822 Contact with and (suspected) exposure to COVID-19 | CPT/HCPCS: 87275; 87276; U0004 ==

== ENCOUNTER 2021-06-30 16:37 | Outpatient (CLI) | payer MEDICARE ==
--- NOTE | 2021-07-01 01:16 | XRAY Report ---
PROCEDURE: Chest 2 View X-Ray INDICATIONS: COUGH TECHNIQUE: 2 views of the chest. COMPARISON: 09/19/2020. FINDINGS: Surgical changes and devices: None. Lungs and pleura: No pleural effusions or pneumothorax. Lungs are clear. Mediastinum: Mediastinal contours are normal. Heart size is normal. Bones and chest wall: No suspicious bony abnormalities. Soft tissues appear unremarkable. IMPRESSION: 1. No acute cardiopulmonary disease. Reviewed by: Kendrick Paredes MD on 07/01/2021 1:15 AM [facility] Approved by: Kendrick Paredes MD on 07/01/2021 1:15 AM [facility] Station ID: [id number]
== END 2021-06-30 16:38 | disposition home or self-care (01) ==
LOC: DI.N 16:37
PROVIDERS: ATTEND Family Medicine
DX: R05.8 Other specified cough (principal); R06.2 Wheezing

== ENCOUNTER 2022-07-15 09:57 | Outpatient (CLI) | payer MEDICARE ==
[2022-07-15 12:40] LABS: BASOPHILS # (AUTO) 0.1 10^3/uL (0.0-0.1); BASOPHILS % (AUTO) 0.9 %; EOSINOPHILS # (AUTO) 0.1 10^3/uL (0.0-0.7); EOSINOPHILS % (AUTO) 1.3 %; HCT - HEMATOCRIT 44.1 % (42.0-52.0); HGB - HEMOGLOBIN 14.6 g/dL (14.0-18.0); LYMPHOCYTES # (AUTO) 0.7 10^3/uL (1.5-3.5); LYMPHOCYTES % (AUTO) 12.8 %; MEAN CORPUSCULAR HEMOGLOBIN 30.6 pg (27.0-31.0); MEAN CORPUSCULAR HGB CONC 33.1 g/dL (32.0-36.0); MEAN CORPUSCULAR VOLUME 92.5 fL (80.0-94.0); MEAN PLATELET VOLUME 9.9 fL (7.4-11.4); MONOCYTES # (AUTO) 0.4 10^3/uL (0.0-1.0); MONOCYTES % (AUTO) 7.6 %; NEUTROPHILS # (AUTO) 4.2 10^3/uL (1.5-6.6); PLT - PLATELET COUNT 226 10^3/uL (130-450); RED BLOOD COUNT 4.77 10^6/uL (4.70-6.10); RED CELL DISTRIBUTION WIDTH 12.3 % (12.0-15.0); WHITE BLOOD COUNT 5.4 x10^3/uL (4.8-10.8)
[2022-07-15 12:56] LABS: ALBUMIN 4.1 g/dL (3.2-5.5); ALBUMIN/GLOBULIN RATIO 1.4 (1.0-2.2); BILIRUBIN,TOTAL 0.9 mg/dL (0.2-1.0); CREATININE 0.9 mg/dL (0.6-1.2); POTASSIUM 4.3 mmol/L (3.5-5.0)
[2022-07-15 13:12] LABS: PSA TOTAL 2.787 ng/mL (0.000-2.000)
[2022-07-15 13:42] LABS: PSA FREE 0.87 ng/mL (0.16-2.81)
== END 2022-07-15 09:58 | disposition home or self-care (01) ==
LOC: LAB.N 09:57
PROVIDERS: ATTEND Physician Assistant
DX: E87.1 Hypo-osmolality and hyponatremia (principal); R97.20 Elevated prostate specific antigen [PSA]; Z51.81 Encounter for therapeutic drug level monitoring
CPT/HCPCS: 36415; 80053; 84153; 84154; 84443; 85025

== ENCOUNTER 2022-08-05 09:56 | Outpatient (CLI) | payer MEDICARE ==
[2022-08-05 11:05] VITALS: BP 122/78
--- NOTE | 2022-08-05 11:05 | SLEEP CARE CONSULTATION ---
Information from patient questionnaire entered by Hernan Valdez. I have reviewed and concur with the information entered by Hernan Valdez. This document represents the service I personally performed and the decisions made by me, Sushma Chaney ARNP. History of Present Illness Service Date and Time: 08/05/2022 0956 Reason for Visit: New patient Chief Complaint: reports: Insomnia, Snoring Date of Onset: 2YRS Usual bedtime: 930PM Time it takes to fall asleep: 30-50MIN Snores at night: Yes Observed to quit breathing while asleep: No Sleeps alone due to snoring: Yes Number of times waking at night: 2-3 Reasons for waking at night: reports: Pain, Bathroom. 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 His current complaints are insomnia and snoring. He states he have been having health problems for a couple years. One was chest tightness and painful breathing and he was diagnosed with GERD with eventual Fundoplication surgery. He has been having pain in back and breathing with whitish clear phlegm that is disturbing his sleep. He was placed on Trazadone to help him sleep but does not use this now. It seems to be worse depending upon what he eats, subsides through the day. 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 He was trialed on Gabapentin, Lyrica and Nortriptyli ne but side effects were so bad these were discontinued. He is taking Olanzapine now and it is working better than the other medications that has been tried. He just feels "drugged out" with this medication too. His has told him that he snores loudly, especially when on his back. He wakes up with dry mouth and has tried Xylomelt which helps. His does not sleep in same room. 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 Patient is Single and lives in [place]. Have you smoked in the past 12 months: No Years of smokin Quit date: 1983 Alcohol use: No Caffeine use: No Family History Family history of sleep disordered breathing: No Allergies and Home Medications Known drug allergies: No Drug allergies reviewed: Yes (NKDA) Home medication list reviewed: Yes Allergy and home medication list: Medications: Tamsulosin Prozac Olanzapine Protonics (PPI drugs) Review of Systems Weight loss over past 5 years: 15 Cardiovascular: reports: chest pain Respiratory: reports: sputum production, chronic cough Gastrointestinal: reports: heartburn, difficulty swallowing Urinary: reports: frequency Neurological: reports: other (DRUGGED UP COORDINATION ) Psychiatric: reports: depression Ear/Nose/Throat: reports: dry mouth/throat, hoarseness, tonsillectomy, wisdom teeth removed Endocrine: reports: increased urination Physical Exam Vital signs obtained and entered by: HERNAN Gomez MA Blood Pressure: 122/78 (LEFT ARM) Cuff size: regular Heart Rate: 65 O2 Saturation: 96 Height: 6 ft Weight: 166 lb 3.2 oz Body Mass Index: 22.5 BMI Classification: Normal Neck circumference: 16 Mouth and throat: narrow oropharynx Soft palate: long Hard palate: normal Uvula: normal Uvula visualization: 50% Mallampati Class II Tongue: enlarged in size with teeth saunders on lateral edges Tonsils: absent bilaterally Neck: normal w/o lymphadenopathy or thyromegaly Heart: regular rate and rhythm Lungs: clear bilaterally Impression and Plan 1. Suspected Obstructive Sleep Apnea-Hypopnea Syndrome, as suggested by a history of loud and irregular snoring, unrefreshed sleep and cognitive impairment. Narrow oropharynx and obesity are common predisposing factors for obstructive sleep apnea-hypopnea syndrome. I recommend proceeding to polysomnography to confirm the diagnosis and to assess severity. If the patient has significant sleep disordered breathing, a manual CPAP titration study will also be performed to find the optimal treatment pressure. I informed the patient of what the sleep studies involve and after some discussion, obtained agreement to proceed. The pathophysiology of obstructive sleep apnea-hypopnea syndrome was discussed with the patient and health risks of cardiovascular and cerebrovascular disease if not treated. 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 Patient agreed to plan. * Schedule polysomnography * Avoid long distance driving or driving when feeling sleepy. * Avoid alcohol, sedative and muscle relaxant around bedtime. * Review instructions provided by trained office staff on how to prepare for the sleep study. * Return for follow-up after sleep study completed. Visit Type: In Office Time Spent with Patient (minutes): 34 Provider Statement: I spent 100% of the Face to Face Visit with the patient with greater than 50% spent counseling the patient and coordination of care.
== END 2022-08-05 09:57 | disposition home or self-care (01) ==
LOC: SC 09:56
PROVIDERS: ATTEND Nurse Practitioner Family
DX: G47.8 Other sleep disorders (principal); R41.89 Other symptoms and signs involving cognitive functions and awareness; R06.83 Snoring; Z87.891 Personal history of nicotine dependence
CPT/HCPCS: 99203; G0463; 99212

== ENCOUNTER 2022-08-25 10:04 | Outpatient (CLI) | payer MEDICARE ==
--- NOTE | 2022-08-25 12:27 | XRAY Report ---
PROCEDURE: Finger(s) RT INDICATIONS: FINGER PAIN TECHNIQUE: AP hand, 2 views of the third finger(s) acquired. COMPARISON: None FINDINGS: Bones: No fractures or dislocations. No suspicious bony lesions. Soft tissues: No suspicious soft tissue calcifications. IMPRESSION: No acute bony abnormality. Reviewed by: Dipesh Ribeiro on 08/25/2022 12:[address] [facility] Approved by: Dipesh Ribeiro on 08/25/2022 12:[address] [facility] Station ID: [id number]
== END 2022-08-25 10:05 | disposition home or self-care (01) ==
LOC: DI 10:04
PROVIDERS: ATTEND Physician Assistant
DX: M79.644 Pain in right finger(s) (principal)

== ENCOUNTER 2022-09-01 09:24 | Outpatient (CLI) | payer MEDICARE | END 2022-09-01 09:25 | disposition home or self-care (01) | LOC: SC 09:24 | PROVIDERS: ATTEND Nurse Practitioner Family | DX: R06.83 Snoring (principal); G47.8 Other sleep disorders; F32.A Depression, unspecified | CPT/HCPCS: G0399 ×2; 95806 ==

== ENCOUNTER 2022-09-08 08:37 | Outpatient (CLI) | payer MEDICARE ==
[2022-09-08 12:48] LABS: ALBUMIN 4.2 g/dL (3.2-5.5); ALBUMIN/GLOBULIN RATIO 1.6 (1.0-2.2); BILIRUBIN,TOTAL 0.8 mg/dL (0.2-1.0); CALCIUM 9.3 mg/dL (8.5-10.3); CREATININE 0.9 mg/dL (0.6-1.2); POTASSIUM 4.2 mmol/L (3.5-5.0); TOTAL PROTEIN 6.9 g/dL (6.7-8.2); URIC ACID 4.2 mg/dL (2.6-7.2)
== END 2022-09-08 08:38 | disposition home or self-care (01) ==
LOC: LAB.N 08:37
PROVIDERS: ATTEND Physician Assistant
DX: E87.1 Hypo-osmolality and hyponatremia (principal); M79.644 Pain in right finger(s)
CPT/HCPCS: 36415; 80053; 84550

== ENCOUNTER 2022-09-12 12:46 | Outpatient (CLI) | payer MEDICARE ==
[2022-09-12 13:13] VITALS: BP 128/80
--- NOTE | 2022-09-12 13:13 | SLEEP CARE CONSULTATION ---
Information from patient questionnaire entered by Lavinia Valdez. I have reviewed and concur with the information entered by Lavinia Valdez. This document represents the service I personally performed and the decisions made by , Sushma Chaney ARNP. History of Present Illness Service Date and Time: 09/12/2022 1246 Initial [place] Sleepiness Scale score: 0 (07/03/22) Current [place] Sleepiness Scale score: 0 (09/12/22) Additional HPI information: VINCENT MCNAMARA returns for follow up and results of the recently performed home sleep study. The patient was informed of the following findings: This is a fair study due to a partial airflow signal loss. No significant sleep disordered breathing with an average AHI of 2.4 and jan oxygen saturation of 92%. Supine AHI 6.2. I explained the pathophysiology behind obstructive sleep apnea. Patient does not have sleep apnea and was advised how weight gain could increase the risk of developing sleep apnea in the future. Patient does not have significant sleep disordered breathing but has elevated AHI in supine position so advised positional therapy. Methods to achieve positional management therapy were discussed; such as, positioning with pillows, wearing a T-shirt with tennis b alls sewn into the back or commercially available products. Patient has moderate snoring. Snoring can be reduced by weight loss. Weight loss is best achieved with diet consult. Patient instructed to contact PCP for referral. Snoring can also be treated with an oral appliance from a dentist. Advised to check insurance coverage. In addition, an ENT evaluation can be do to see if other treatment is indicated. Patient does not drink alcohol. Patient was cautioned about risks of drowsy driving until sleepiness symptoms resolve. Patient denies drowsy driving. Sleep Study - Results Type of Sleep Study: Home sleep study (COMPLETED 09/01/22) Prior sleep studies: No Polysomnography/Home Sleep Study results: Physician Impression: The quality of the study is fair due to partial loss of airflow signal. The length of the study is adequate (> 240 minutes). Please also see the tabulated and graphic data. 1. No significant sleep disordered breathing, with an AHI of 2.4/hr and jan SaO2 of 92%. During the study, the patient had 17 apneas (17 obstructive, 0 central, 0 mixed) and 3 hypopneas. The longest episode lasted 100.0 seconds. The few respiratory events occurred more frequently during supine sleep (supine AHI was 6.2 and non-supine, 2.27). Allergies and Home Medications Known drug allergies: No Drug allergies reviewed: Yes Home medication list reviewed: Yes (no changes) Review of Systems Review of systems same as previous: Yes (no changes) Physical Exam Vital signs obtained and entered by: LAVINIA Gomez MA Blood Pressure: 128/80 (LEFT ARM) Cuff size: regular Heart Rate: 72 O2 Saturation: 98 Height: 6 ft Weight: 166 lb Body Mass Index: 22.5 BMI Classification: Normal Impression and Plan 1. Snoring but no significant sleep disordered breathing. Patient has a mildly elevated supine AHI and he was advised to avoid supine sleep. He states he rarely sleeps on his back and feels this will not be a problem. An oral appliance can also be used for snoring. This would require a dental consultation. Patient cautioned not to use other online appliances as can cause bite issues. A list of accredited dentists in area and one local dentist who makes oral appliances is available in office as needed. Patient is advised to check if insurance will cover. An ENT consult can also be helpful to determine if any other treatment is an option. Patient HST was a fair signal due to partial airflow loss. I advised that we can have him repeat the sleep study in the lab to verify HST results. He declined at this time. * Avoid supine sleep * Maintain healthy weight * Return as needed for follow up. Counseling Topics: Sleeping position Visit Type: In Office Time Spent with Patient (minutes): 15 Provider Statement: I spent 100% of the Face to Face Visit with the patient with greater than 50% spent counseling the patient and coordination of care.
== END 2022-09-12 12:47 | disposition home or self-care (01) ==
LOC: SC 12:46
PROVIDERS: ATTEND Nurse Practitioner Family
DX: R06.83 Snoring (principal)
CPT/HCPCS: 99212; G0463

== ENCOUNTER 2022-10-15 13:28 | Outpatient (CLI) | payer MEDICARE ==
[2022-10-15] MEDS ORDERED: ALBUTEROL 1 PUFF INH STA (17:38)
== END 2022-10-15 13:29 | disposition home or self-care (01) ==
LOC: RT 13:28
PROVIDERS: ATTEND Physician Assistant
DX: J44.9 Chronic obstructive pulmonary disease, unspecified (principal)
CPT/HCPCS: 94060

== ENCOUNTER 2023-05-11 10:46 | Inpatient (IN) | payer MEDICARE ==
[2023-05-11 11:23] LABS: BASOPHILS # (AUTO) 0.1 10^3/uL (0.0-0.1); EOSINOPHILS % (AUTO) 0.6 %; HCT - HEMATOCRIT 44.2 % (42.0-52.0); HGB - HEMOGLOBIN 15.6 g/dL (14.0-18.0); LYMPHOCYTES # (AUTO) 0.5 10^3/uL (1.5-3.5); LYMPHOCYTES % (AUTO) 8.9 %; MEAN CORPUSCULAR HEMOGLOBIN 31.1 pg (27.0-31.0); MEAN CORPUSCULAR HGB CONC 35.3 g/dL (32.0-36.0); MEAN CORPUSCULAR VOLUME 88.2 fL (80.0-94.0); MEAN PLATELET VOLUME 9.1 fL (7.4-11.4); MONOCYTES # (AUTO) 0.4 10^3/uL (0.0-1.0); MONOCYTES % (AUTO) 7.8 %; NEUTROPHILS # (AUTO) 4.2 10^3/uL (1.5-6.6); NEUTROPHILS % (AUTO) 81.5 %; PLT - PLATELET COUNT 221 10^3/uL (130-450); RED BLOOD COUNT 5.01 10^6/uL (4.70-6.10); RED CELL DISTRIBUTION WIDTH 11.6 % (12.0-15.0); WHITE BLOOD COUNT 5.2 x10^3/uL (4.8-10.8)
[2023-05-11 11:41] LABS: ALBUMIN 4.5 g/dL (3.2-5.5); BILIRUBIN,TOTAL 0.7 mg/dL (0.2-1.0); CALCIUM 9.2 mg/dL (8.5-10.3); CREATININE 0.7 mg/dL (0.6-1.3); POTASSIUM 4.2 mmol/L (3.5-4.5); TOTAL PROTEIN 6.7 g/dL (6.4-8.9)
--- NOTE | 2023-05-11 11:41 | XRAY Report ---
PROCEDURE: Chest 1 View X-Ray INDICATIONS: Chest pain TECHNIQUE: One view of the chest was acquired. COMPARISON: Chest x-ray 06/30/2021 FINDINGS: Surgical changes and devices: None. Lungs and pleura: No pleural effusions or pneumothorax. Lungs are clear. Mediastinum: Mediastinal contours appear normal. Heart size is mildly prominent. Bones and chest wall: No suspicious bony lesions. Overlying soft tissues appear unremarkable. IMPRESSION: No acute cardiopulmonary process. Reviewed by: Barbra Devries MD on 05/11/2023 11:39 AM PST Approved by: Barbra Devries MD on 05/11/2023 11:39 AM [facility] Station ID: [id number]
[2023-05-11 11:47] LABS: TROPONIN I HIGH SENSITIVITY 3.9 ng/L (2.3-19.7)
[2023-05-11] MEDS ORDERED: SODIUM CHLORIDE 0.9% 1,000 ML IV ONE (12:28)
[2023-05-11 13:53] LABS: BILIRUBIN,URINE NEGATIVE (NEGATIVE); CLARITY,URINE CLEAR (CLEAR); GLUCOSE, URINE (UA) NEGATIVE (NEGATIVE); KETONES,URINE (UA) 15 mg/dL (NEGATIVE); LEUKOCYTE ESTERASE, URINE NEGATIVE (NEGATIVE); NITRITE,URINE NEGATIVE (NEGATIVE); OCCULT BLOOD,URINE SMALL (NEGATIVE); PH,URINE 7.5 PH (5.0-7.5); PROTEIN,URINE NEGATIVE (NEGATIVE); UROBILINOGEN,URINE 0.2 (NORMAL) E.U./dL (NORMAL)
[2023-05-11 14:08] LABS: BACTERIA,URINE Few /HPF (None Seen); EPITHELIAL CELLS,UR FEW Renal Tubular /HPF (<= Few); MUCUS,URINE Few Strands; SQUAMOUS EPITHELIAL CELL,UR RARE Squamous (<= Few); WBC CLUMPS,URINE PRESENT
[2023-05-11 14:45] LABS: CALCIUM 9.1 mg/dL (8.5-10.3); CREATININE 0.6 mg/dL (0.6-1.3); POTASSIUM 4.3 mmol/L (3.5-4.5)
--- NOTE | 2023-05-11 14:54 | ED Physician Documentation ---
History of Present Illness - Stated complaint Stated Complaint: DIZZY,NAUSEA - Chief complaint Chief Complaint: Neuro - History obtained from History obtained from: Patient - Additonal information Additional information: 72-year-old male with history of anxiety, COPD presents from home by private vehicle for shortness of breath, chest pain, nausea. Patient states that his shortness of breath has been present for "years", it seems to have been getting worse lately and no one can figure out why. He states that he has been seen at 4 different hospitals for this issue without diagnosis. Last seen at [facility] on 05/03/2023 for this issue and discharged home. Patient states his primary concern today is that he feels very very nauseous. He is concerned that this is serotonin syndrome because he recently started duloxetine 3 days ago. Review of Systems Constitutional: denies: Fever, Chills Throat: denies: Dental pain / toothache, Oral lesions / sores, Sore throat Cardiac: denies: Chest pain / pressure, Palpitations, Calf pain Respiratory: reports: Dyspnea. denies: Cough, Wheezing GI: reports: Nausea. denies: Abdominal Pain, Vomiting, Constipation, Diarrhea : denies: Dysuria, Frequency, Hesitancy PD PAST MEDICAL HISTORY - Past Medical History Cardiovascular: Hypertension Respiratory: Pneumonia Neuro: None Endocrine/Autoimmune: None GI: GERD, Colon polyps, Hepatitis, Diverticulitis : Benign prostate hypertrophy HEENT: None Psych: None Musculoskeletal: None Derm: None - Past Surgical History Past Surgical History: Yes HEENT: Rhinoplasty, Tonsil/Adenoidectomy - Present Medications Home Medications: Ambulatory Orders Medication Instructions Recorded Confirmed Tamsulosin [Flomax] 1 tab PO DAILY 07/14/20 05/11/23 traZODone [Desyrel] 0.5 tab PO PRN PRN 07/14/20 05/11/23 Fluticasone 110 Mcg [Flovent] 2 puffs INH BID 09/08/20 05/11/23 DULoxetine [Cymbalta] 30 mg PO DAILY 05/11/23 05/11/23 LORazepam [Ativan] 0.5 mg PO Q6H 05/11/23 05/11/23 LORazepam [Ativan] 2.5 mg PO HS 05/11/23 05/11/23 Pantoprazole Sodium 20 mg PO DAILY 05/11/23 05/11/23 - Allergies Allergies/Adverse Reactions: Allergies Allergy/AdvReac Type Severity Reaction Status Date / Time No Known Drug Allergies Allergy Verified 09/12/22 12:54 - Social History Does the pt smoke?: No Smoking Status: Never smoker Does the pt drink ETOH?: No Does the pt have substance abuse?: No - Immunizations Immunizations are current?: Yes - POLST Patient has POLST: No PD ED PE NORMAL - Vitals Vital signs reviewed: Yes - General General: Alert and oriented X 3, No acute distress, Well developed/nourished - HEENT HEENT: Atraumatic - Neck Neck: Supple, no meningeal sign - Cardiac Cardiac: RRR, Strong equal pulses - Respiratory Respiratory: No respiratory distress, Clear bilaterally, Other (speaking in clear and complete sentences without dyspnea) - Abdomen Abdomen: Soft - Back Back: No CVA TTP, No spinal TTP - Derm Derm: Normal color, Warm and dry, No rash - Extremities Extremities: No deformity, No tenderness to palpate, Normal ROM s pain, No edema - Neuro Neuro: Alert and oriented X 3, 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, No motor deficit, Normal speech - Psych Psych: Normal mood, Other (flat affect) Results - Vitals Vitals: Vital Signs - 24 hr 05/11/23 05/11/23 05/11/23 10:57 11:39 12:39 Temperature 37 C Heart Rate 80 75 79 Respiratory 22 15 14 Rate Blood Pressure 152/65 H 158/95 H 164/105 H O2 Saturation 100 100 100 05/11/23 05/11/23 05/11/23 13:09 13:30 14:00 Temperature Heart Rate 95 74 66 Respiratory 18 16 17 Rate Blood Pressure 155/111 H 168/120 H 163/82 H O2 Saturation 99 98 100 05/11/23 05/11/23 14:30 15:00 Temperature Heart Rate 80 103 H Respiratory 15 15 Rate Blood Pressure 144/104 H 168/108 H O2 Saturation 99 98 Oxygen O2 Source Room air - Labs Labs: Laboratory Tests 05/11/23 05/11/23 05/11/23 11:15 11:15 12:19 WBC 5.2 RBC 5.01 Hgb 15.6 Hct 44.2 MCV 88.2 MCH 31.1 H MCHC 35.3 RDW 11.6 L Plt Count 221 MPV 9.1 Neut # (Auto) 4.2 Lymph # (Auto) 0.5 L [place] # (Auto) 0.4 Eos # (Auto) 0.0 Baso # (Auto) 0.1 Absolute Nucleated RBC 0.00 Nucleated RBC % 0.0 Sodium 121 L Potassium 4.2 Chloride 88 L Carbon Dioxide 27 Anion Gap 6.0 BUN 10 Creatinine 0.7 Estimated GFR (MDRD) 111 Glucose 116 H Calcium 9.2 Total Bilirubin 0.7 AST 20 ALT 14 Alkaline Phosphatase 73 Troponin I High Sens 3.9 4.0 Total Protein 6.7 Albumin 4.5 Globulin 2.2 Albumin/Globulin Ratio 2.0 Lipase 28 Urine Color Urine Clarity Urine pH Ur Specific [place] Urine Protein Urine Glucose (UA) Urine Ketones Urine Occult Blood Urine Nitrite Urine Bilirubin Urine Urobilinogen Ur Leukocyte Esterase Urine RBC Urine WBC Urine WBC Clumps Ur Epithelial Cells Ur Squamous Epith Cells Urine Bacteria Urine Mucus Ur Microscopic Review Urine Culture Comments Urine Sodium 05/11/23 05/11/23 05/11/23 13:30 13:30 14:25 WBC RBC Hgb Hct MCV MCH MCHC RDW Plt Count MPV Neut # (Auto) Lymph # (Auto) [place] # (Auto) Eos # (Auto) Baso # (Auto) Absolute Nucleated RBC Nucleated RBC % Sodium 123 L Potassium 4.3 Chloride 91 L Carbon Dioxide 25 Anion Gap 7.0 BUN 10 Creatinine 0.6 Estimated GFR (MDRD) 132 Glucose 110 H Calcium 9.1 Total Bilirubin AST ALT Alkaline Phosphatase Troponin I High Sens Total Protein Albumin Globulin Albumin/Globulin Ratio Lipase Urine Color YELLOW Urine Clarity CLEAR Urine pH 7.5 Ur Specific [place] 1.015 Urine Protein NEGATIVE Urine Glucose (UA) NEGATIVE Urine Ketones 15 H Urine Occult Blood SMALL H Urine Nitrite NEGATIVE Urine Bilirubin NEGATIVE Urine Urobilinogen 0.2 (NORMAL) Ur Leukocyte Esterase NEGATIVE Urine RBC 6-10 H Urine WBC 6-10 H Urine WBC Clumps PRESENT Ur Epithelial Cells FEW Renal Tubular Ur Squamous Epith Cells RARE Squamous Urine Bacteria Few Urine Mucus Few Strands Ur Microscopic Review INDICATED Urine Culture Comments NOT INDICATED Urine Sodium 91.8 PD Medical Decision Making - ED course Complexity details: reviewed old records, reviewed results, re-evaluated patient, considered differential, d/w patient, d/w client service consultant ED course: Patient presenting for evaluation of chronic medical problems, but says that his nausea and symptoms worsened after starting duloxetine. He states that he is concerned that he may have serotonin syndrome, clinically patient does not have any signs or symptoms of serotonin syndrome. Patient's laboratory work is significant for a sodium of 121, there are no recent priors for comparison. I was able to obtain records from [facility], where patient was evaluated for same complaint 1 week ago, his sodium at that time was 128. It is possible that this is caused by the initiation of duloxetine. Patient is also on olanzapine. Will give fluids and reassess. Minor improvement in sodium with IV fluids. Urine sodium 92. Discussed case with hospitalist service, who will admit the patient to their service to titrate medications and improve sodium and appropriate rate. Patient in agreement with plan. Departure - Departure Disposition: [facility] [place] Clinical Impression: Hyponatremia, Nausea Condition: Stable Discharge Date/Time: 05/11/23 16:44
[2023-05-11] MEDS ORDERED: ONDANSETRON ODT 4 MG TABLET TL PRN (15:20)
[2023-05-11] MEDS ORDERED: SODIUM CHLORIDE FLUSH 0.9% 10 ML SYRINGE IVP PRN (15:20)
[2023-05-11] MEDS: SODIUM CHLORIDE 0.9% 1,000 ML IV SCH (16:20)
--- NOTE | 2023-05-11 17:16 | HISTORY & PHYSICAL EXAMINATION ---
Chief Complaint - Chief Complaint Chief Complaint: Nausea History of Present Illness - Admitted From Admitted From:: ED - History Obtained From Records Reviewed: Yes History obtained from: Patient Exam Limitations: None - History of Present Illness HPI Comment/Other: Patient is a 72-year-old male with a past medical history of accelerated breathing disorder, GERD s/p Anette fundoplication, anxiety who presented to the ED due to 3 days of worsening shortness of breath and nausea. In the ED he had a negative chest x-ray. His initial sodium was noted to be 121. He was given a bolus of normal saline and his sodium increased to 123. EKG showed trigeminy. Patient was admitted to the floor due to his hypon atremia. During my evaluation patient discussed with me his past medical history. He has been dealing with an accelerated breathing disorder for several years. Initially it was believed to be GERD and he was started on a PPI and underwent Anette fundoplication which did not appear to help. His manager ethics initiated him on clonazepam a short while ago. His psychiatrist transitioned him onto Ativan 2 weeks prior to this admission. In conjunction with his psychiatrist and PCP, he was started on duloxetine 3 days ago for anxiety. Patient reports that immediately after starting the me dication he began to feel unwell and nauseated. He did not take the medication today. Patient vital signs are stable. Denies any chest pain or palpitations. He has not been on any other psychiatric medications in recent history. History - Past Medical History Cardiovascular: reports: Hypertension Respiratory: reports: Pneumonia Neuro: reports: None Endocrine/Autoimmune: reports: None GI: reports: GERD, Colon polyps, Hepatitis, Diverticulitis : reports: Benign prostate hypertrophy HEENT: reports: None Psych: reports: None Musculoskeletal: reports: None Derm: reports: None MRSA Hx?: No - Past Surgical History HEENT: reports: Rhinoplasty, Tonsil/Adenoidectomy - POLST Patient has POLST: No Meds/Allgy - Home Medications Home Medications: Ambulatory Orders Medication Instructions Recorded Confirmed Tamsulosin [Flomax] 1 tab PO DAILY 07/14/20 05/11/23 traZODone [Desyrel] 0.5 tab PO PRN PRN 07/14/20 05/11/23 Fluticasone 110 Mcg [Flovent] 2 puffs INH BID 09/08/20 05/11/23 DULoxetine [Cymbalta] 30 mg PO DAILY 05/11/23 05/11/23 LORazepam [Ativan] 0.5 mg PO Q6H 05/11/23 05/11/23 LORazepam [Ativan] 2.5 mg PO HS 05/11/23 05/11/23 Pantoprazole Sodium 20 mg PO DAILY 05/11/23 05/11/23 - Allergies Allergies/Adverse Reactions: Allergies Allergy/AdvReac Type Severity Reaction Status Date / Time No Known Drug Allergies Allergy Verified 09/12/22 12:54 Prior Level of Functionality: Independent Exam - Vital Signs Vital Signs: Vital Signs x48h Temp Pulse Pulse Resp BP BP Pulse Ox 05/11/23 16:51 36.3 C L 77 24 174/106 H 100 05/11/23 16:30 36.6 C 85 18 168/102 H 98 05/11/23 16:00 73 16 174/104 H 98 05/11/23 15:30 71 18 168/115 H 98 05/11/23 15:00 103 H 15 168/108 H 98 05/11/23 14:30 80 15 144/104 H 99 05/11/23 14:00 66 17 163/82 H 100 05/11/23 13:30 74 16 168/120 H 98 05/11/23 13:09 95 18 155/111 H 99 05/11/23 12:39 79 14 164/105 H 100 05/11/23 11:39 75 15 158/95 H 100 05/11/23 10:57 37 C 80 22 152/65 H 100 - Physical Exam General Appearance: positive: Alert, Mild distress Respiratory: positive: Chest non-tender, Breath sounds nml, Other (Exhibiting tachypnea.) Cardiovascular: positive: Regular rate & rhythm, No murmur, No gallop Abdomen: positive: Non-tender, No organomegaly, Nml bowel sounds, No distention Skin: positive: Color nml, No rash, Warm Extremities: positive: Non-tender, Full ROM, No pedal edema Neurologic/Psychiatric: positive: Oriented x3, CN's nml (2-12), Motor nml Conclusion/Plan - Problem List (1) Hyponatremia Conclusion/Plan: -- 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 -- We will start patient on IV normal saline as well as sodium tablets. --Holding pantoprazole, duloxetine, trazodone. We will consult telemetry psych to help with medication management in order to avoid SIADH. --Trending sodium every 6 hours. --Urine osmolality pending to determine whether hyponatremia is ADH dependent or independent. (2) Anxiety Conclusion/Plan: -- As mentioned above, holding duloxetine. We will continue Ativan as to not precipitate benzodiazepine withdrawal. (3) GERD (gastroesophageal reflux disease) Conclusion/Plan: --Holding Protonix as PPIs have been known to cause SIADH. --Will start him on famotidine for symptom control. Qualifiers: Esophagitis presence: with esophagitis Esophagitis bleeding: without hemorrhage Qualified Code(s): K21.00 - Gastro-esophageal reflux disease with esophagitis, without bleeding (4) Reactive airway disease with wheezing Conclusion/Plan: --Saturating well on room air but in mild respiratory distress. --CXR negative --Ddimer pending to rule out PE. --Continue fluticasone inhaler. --Reports he has a consultation with pulmonology. Qualifiers: Asthma severity: unspecified severity Asthma persistence: unspecified Asthma complication type: uncomplicated Qualified Code(s): J45.909 - Unspecified asthma, uncomplicated (5) Ventricular trigeminy Conclusion/Plan: --Monitoring on tele. --Will obtain a magnesium. --Correcting electrolytes. (6) BPH (benign prostatic hyperplasia) Conclusion/Plan: --Had some urinary retention in the ED, however is now voiding without difficulty. --Continue tamsulosin. - Lab Results Fish Bones: 05/11/23 11:15 05/11/23 14:25 - Diagnostic Imaging Results Diagnostic Imaging Results: positive: Final report reviewed - EKG Results EKG Interpreted Independently: Yes Core Measures - DVT/VTE - Prophylaxis VTE/DVT Device ordered at admit?: Yes
[2023-05-11] MEDS: SODIUM CHLORIDE FLUSH 0.9% 10 ML SYRINGE IVP SCH (17:49)
[2023-05-11] MEDS ORDERED: PROCHLORPERAZINE 5 MG TABLET PO PRN (18:11)
[2023-05-11] MEDS ORDERED: PROCHLORPERAZINE 10 MG/2 ML VIAL IVP PRN (18:11)
[2023-05-11] MEDS: BUDESONIDE 0.5 MG/2 ML NEB INH SCH (19:10)
[2023-05-11] MEDS: LORazepam 0.5 MG TABLET PO SCH (20:22)
[2023-05-11] MEDS: FAMOTIDINE 20 MG TABLET PO SCH (20:28)
[2023-05-11] MEDS ORDERED: LORazepam 0.5 MG TABLET PO SCH (21:00)
[2023-05-11] MEDS: SODIUM CHLORIDE 1 GM TABLET PO SCH (21:28)
[2023-05-12] MEDS: SODIUM CHLORIDE FLUSH 0.9% 10 ML SYRINGE IVP SCH ×4 (01:29→23:54)
[2023-05-12] MEDS: ACETAMINOPHEN 325 MG TABLET PO PRN ×2 (01:35→06:33)
[2023-05-12] MEDS: SODIUM CHLORIDE 0.9% 1,000 ML IV SCH ×3 (01:48→21:13)
[2023-05-12 05:36] LABS: BASOPHILS % (AUTO) 0.8 %; EOSINOPHILS # (AUTO) 0.1 10^3/uL (0.0-0.7); EOSINOPHILS % (AUTO) 1.4 %; HCT - HEMATOCRIT 41.9 % (42.0-52.0); HGB - HEMOGLOBIN 14.8 g/dL (14.0-18.0); LYMPHOCYTES # (AUTO) 0.5 10^3/uL (1.5-3.5); LYMPHOCYTES % (AUTO) 10.4 %; MEAN CORPUSCULAR HEMOGLOBIN 31.2 pg (27.0-31.0); MEAN CORPUSCULAR HGB CONC 35.3 g/dL (32.0-36.0); MEAN CORPUSCULAR VOLUME 88.2 fL (80.0-94.0); MEAN PLATELET VOLUME 9.5 fL (7.4-11.4); MONOCYTES # (AUTO) 0.5 10^3/uL (0.0-1.0); MONOCYTES % (AUTO) 9.6 %; NEUTROPHILS # (AUTO) 3.9 10^3/uL (1.5-6.6); NEUTROPHILS % (AUTO) 77.6 %; PLT - PLATELET COUNT 201 10^3/uL (130-450); RED BLOOD COUNT 4.75 10^6/uL (4.70-6.10); RED CELL DISTRIBUTION WIDTH 11.6 % (12.0-15.0)
[2023-05-12 06:00] LABS: CALCIUM 8.5 mg/dL (8.5-10.3); CREATININE 0.6 mg/dL (0.6-1.3); POTASSIUM 3.8 mmol/L (3.5-4.5)
[2023-05-12] MEDS: SODIUM CHLORIDE 1 GM TABLET PO SCH ×2 (06:33→13:08)
[2023-05-12] MEDS: BUDESONIDE 0.5 MG/2 ML NEB INH SCH (07:06)
[2023-05-12] MEDS ORDERED: TAMSULOSIN 0.4 MG CAPSULE PO SCH (09:00)
[2023-05-12] MEDS: LORazepam 0.5 MG TABLET PO SCH (09:03)
[2023-05-12] MEDS: FAMOTIDINE 20 MG TABLET PO SCH ×2 (09:03→21:10)
[2023-05-12] MEDS: ENOXAPARIN 40 MG/0.4 ML SYRINGE SUBQ SCH (09:04)
[2023-05-12 09:22] LABS: ESTIMATED AVERAGE GLUCOSE 105 mg/dL (70-100); HEMOGLOBIN A1c% 5.3 % (4.27-6.07)
[2023-05-12] MEDS ORDERED: PETROLATUM WHITE 5 GM PACKET TOP PRN (11:33)
--- NOTE | 2023-05-12 12:17 | PHARMACY PROGRESS NOTE ---
- Best Possible Medication History Admit Date and Time: 05/11/23 1520 Processed by: Pharmacy Medication History completed: Yes Patient Interview: Completed Secondary Source(s): Insurance records As the person ultimately responsible for medication therapy, providers are able to order a medication from an existing home medication list in [facility] via the "Reconcile Routine" prior to Confirmation of that medication by director sales support. Such practice is discouraged except when the physician, in their clinical judgment, deems that a medical need exists for a medication without regard to previous use.
[2023-05-12] MEDS: polyethylene glycoL 3350 17 GM PACKET PO SCH (13:08)
[2023-05-12] MEDS ORDERED: traZODone 50 MG TABLET PO PRN (16:36)
[2023-05-12] MEDS ORDERED: LORazepam 0.5 MG TABLET PO SCH ×3 (16:52→17:00)
[2023-05-12] MEDS ORDERED: FAMOTIDINE 20 MG TABLET PO SCH (17:00)
--- NOTE | 2023-05-12 17:40 | PROVIDER PROGRESS NOTE ---
Assessment/Plan - Problem List (1) Hyponatremia Assessment/Plan: -- 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 -- Sodium levels steadily increasing 124>127>126>127. PLAN: -- Telemetry psych consulted to hold duloxetine. -- We will resume IV normal saline. -- Sodium chloride Tab has been decreased from 1 gm TID daily to 1 gm PO daily due to rise in BP. --Trending sodium every 12 hours. --Monitor Urine osmolality to determine whether hyponatremia is ADH dependent or independent. (2) Anxiety Conclusion/Plan: -- As mentioned above, holding duloxetine. -- We will resume his ÁNGEL Ativan 0.5 mg BID to match home dosage. He will continue his Ativan PO 2.5 mg HS. (3) GERD (gastroesophageal reflux disease) Conclusion/Plan: --Holding Protonix as PPIs have been known to cause SIADH. --Will continue famotidine for symptom control. --Upcoming abdominal CTA scan scheduled at [facility] Qualifiers: Esophagitis presence: with esophagitis Esophagitis bleeding: without hemorrhage Qualified Code(s): K21.00 - Gastro-esophageal reflux disease with esophagitis, without bleeding (4) premature ventricular contractions Conclusion/Plan: --EKG show quintgeminy. --Magnesium on 05/11 showed normal level. PLAN: --Monitoring on tele. --Correcting electrolytes. --Echo ordered for next available time. --May initiate Metoprolol in the future for PVC reduction. (5) insolmnia Conclusion/Plan: --Mostly likely due to Trazedone not resumed during beginning of hospital stay. PLAN: --Initiate patient on home med dose of Trazedone 50 mg PO HS. --Resume Ativan dosage listed above. (6) hypertension Conclusion/Plan: --rise in BP likely due to increased sodium --hx of hypertension --hx of atenolol anxiety and blood pressure management. PT did not regularly take medication and stopped on his own. PLAN: --reduced PO salt tablet as listed above and monitor BP. --May initiate metoprolol as listed above for chronic hypertension. (7) history of COPD Conclusion/Plan: --Saturating well on room air but in mild respiratory distress. --CXR negative. --D dimer levels are normal. PLAN: --Continue fluticasone inhaler. --Reports he has a consultation with pulmonology. Qualifiers: Asthma severity: unspecified severity Asthma persistence: unspecified Asthma complication type: uncomplicated Qualified Code(s): J45.909 - Unspecified asthma, uncomplicated (8) BPH (benign prostatic hyperplasia) Conclusion/Plan: --Had some urinary retention in the ED, however is now voiding without difficulty. --Continue tamsulosin. - Current Meds Current Meds: Current Medications Generic Name Dose Route Start Last Admin Trade Name Freq PRN Reason Stop Dose Admin Acetaminophen 650 mg 05/11/23 15:20 05/12/23 06:33 Acetaminophen 325 Mg Tablet PO 650 mg Q4HR PRN Administration Pain 1 to 4, or Fever Budesonide 0.5 mg 05/11/23 19:00 05/12/23 07:06 Budesonide 0.5 Mg/2 Ml Neb INH 0.5 mg RTBID ÁNGEL Administration Enoxaparin Sodium 40 mg 05/12/23 09:00 05/12/23 09:04 Enoxaparin 40 Mg/0.4 Ml Syringe SUBQ 40 mg DAILY ÁNGEL Administration Sodium Chloride 1,000 mls @ 100 mls/hr 05/11/23 16:00 05/12/23 11:42 Normal Saline 0.9% IV 100 mls/hr .Q10H ÁNGEL Administration Lorazepam 0.5 mg 05/11/23 21:00 05/12/23 09:03 Lorazepam 0.5 Mg Tablet PO 0.5 mg BID ÁNGEL Administration Lorazepam 2.5 mg 05/11/23 21:00 05/11/23 20:28 Lorazepam 0.5 Mg Tablet PO 2.5 mg HS ÁNGEL Administration Petrolatum 1 applic 05/12/23 11:33 05/12/23 11:44 Petrolatum White 5 Gm Packet TOP 1 applic PRN PRN Administration Dry Lips Polyethylene Glycol 17 gm 05/12/23 12:00 05/12/23 13:08 Polyethylene Glycol 3350 17 Gm Packet PO 17 gm DAILY ÁNGEL Administration Prochlorperazine Maleate 5 mg 05/11/23 18:11 05/11/23 18:41 Prochlorperazine 5 Mg Tablet PO 5 mg Q6HR PRN Administration Nausea / Vomiting Sodium Chloride 10 ml 05/11/23 17:00 05/12/23 09:04 Sodium Chloride Flush 0.9% 10 Ml Syringe IVP 10 ml 0100,0900,1700 [facility] Administration - Lab Result Fish Bone Diagrams: 05/12/23 05:04 05/12/23 12:18 - Additional Planning Time Spent: 15-30 minutes Subjective - Subjective Patient Reports: Abdominal Pain (epigastric region), Dizzines (when ambulating), Headache, Heartburn (increased after eating), Nausea (increased after eating), Pain (breathing pain when inhaling and exhaling), Other (insolmnia, chest tightness) Nursing Reports: Nausea, Pain Objective Vital Signs: Vital Signs - 24 hr 05/11/23 05/11/23 05/11/23 16:51 19:14 23:51 Temperature 36.3 C L 36.5 C Heart Rate 73 Heart Rate [ 73 Brachial] Heart Rate [ 77 Monitoring electrodes] Respiratory 24 18 18 Rate Blood Pressure 174/106 H 130/91 H [Left Brachial artery] O2 Saturation 100 99 05/12/23 05/12/23 05/12/23 01:17 04:25 07:10 Temperature 36.5 C 36.5 C Heart Rate 74 Heart Rate [ 67 Brachial] Heart Rate [ 70 Monitoring electrodes] Respiratory 18 18 16 Rate Blood Pressure 140/92 H 131/86 H [Left Brachial artery] O2 Saturation 98 99 05/12/23 05/12/23 05/12/23 08:00 11:36 16:00 Temperature 36.5 C 36.4 C L 35.6 C L Heart Rate Heart Rate [ 76 71 Brachial] Heart Rate [ 73 Monitoring electrodes] Respiratory 16 18 16 Rate Blood Pressure 146/82 H 142/66 H 149/79 H [Left Brachial artery] O2 Saturation 100 98 Oxygen O2 Source Room air I&O (Last 24 Hrs): Intake and Output Totals x24h 05/10/23 05/11/23 05/12/23 23:59 23:59 23:59 Intake Total 1000 2056.667 Output Total 1550 750 Balance -550 1306.667 General: Alert, Oriented x3, Cooperative, Mild distress HEENT: Atraumatic, PERRLA, EOMI, Other Neuro: Alert, Oriented Times 3, Other (no tremors) Cardiovascular: Regular rate (quiet heart sound most likely due to COPD bloackage), Normal S1, Normal S2, No murmurs Respiratory: Chest non-tender, No respiratory distress, Breath sounds nml Abdomen: Normal bowel sounds, Soft, No tenderness, No masses Extremities: No clubbing, No cyanosis, No edema, Normal pulses, No tenderness/swelling - Results Results: Laboratory Results WBC 5.0 x10^3/uL (4.8-10.8) 05/12/23 05:04 RBC 4.75 10^6/uL (4.70-6.10) 05/12/23 05:04 Hgb 14.8 g/dL (14.0-18.0) 05/12/23 05:04 Hct 41.9 % (42.0-52.0) L 05/12/23 05:04 MCV 88.2 fL (80.0-94.0) 05/12/23 05:04 MCH 31.2 pg (27.0-31.0) H 05/12/23 05:04 MCHC 35.3 g/dL (32.0-36.0) 05/12/23 05:04 RDW 11.6 % (12.0-15.0) L 05/12/23 05:04 Plt Count 201 10^3/uL (130-450) 05/12/23 05:04 MPV 9.5 fL (7.4-11.4) 05/12/23 05:04 Neut # (Auto) 3.9 10^3/uL (1.5-6.6) 05/12/23 05:04 Lymph # (Auto) 0.5 10^3/uL (1.5-3.5) L 05/12/23 05:04 [place] # (Auto) 0.5 10^3/uL (0.0-1.0) 05/12/23 05:04 Eos # (Auto) 0.1 10^3/uL (0.0-0.7) 05/12/23 05:04 Baso # (Auto) 0.0 10^3/uL (0.0-0.1) 05/12/23 05:04 Absolute Nucleated RBC 0.00 x10^3/uL 05/12/23 05:04 Nucleated RBC % 0.0 /100WBC 05/12/23 05:04 D-Dimer 228.7 ng/mL (200.0-255.0) 05/11/23 18:15 Sodium 127 mmol/L (135-145) L 05/12/23 12:18 Potassium 3.8 mmol/L (3.5-4.5) 05/12/23 05:04 Chloride 98 mmol/L (101-111) L 05/12/23 05:04 Carbon Dioxide 23 mmol/L (21-32) 05/12/23 05:04 Anion Gap 5.0 (6-13) L 05/12/23 05:04 BUN 8 mg/dL (6-20) 05/12/23 05:04 Creatinine 0.6 mg/dL (0.6-1.3) 05/12/23 05:04 Estimated GFR (MDRD) 132 (>89) 05/12/23 05:04 Glucose 92 mg/dL (74-104) 05/12/23 05:04 Estimat Average Glucose 105 mg/dL (70-100) H 05/12/23 05:04 Hemoglobin A1c % 5.3 % (4.27-6.07) 05/12/23 05:04 Calcium 8.5 mg/dL (8.5-10.3) 05/12/23 05:04 Magnesium 1.7 mg/dL (1.7-2.3) 05/11/23 18:15 Total Bilirubin 0.7 mg/dL (0.2-1.0) 05/11/23 11:15 AST 20 IU/L (10-42) 05/11/23 11:15 ALT 14 IU/L (10-60) 05/11/23 11:15 Alkaline Phosphatase 73 IU/L (42-121) 05/11/23 11:15 Troponin I High Sens 4.0 ng/L (2.3-19.7) 05/11/23 12:19 Total Protein 6.7 g/dL (6.4-8.9) 05/11/23 11:15 Albumin 4.5 g/dL (3.2-5.5) 05/11/23 11:15 Globulin 2.2 g/dL (2.1-4.2) 05/11/23 11:15 Albumin/Globulin Ratio 2.0 (1.0-2.2) 05/11/23 11:15 Lipase 28 U/L (11-82) 05/11/23 11:15 Urine Color YELLOW 05/11/23 13:30 Urine Clarity CLEAR (CLEAR) 05/11/23 13:30 Urine pH 7.5 PH (5.0-7.5) 05/11/23 13:30 Ur Specific [place] 1.015 (1.002-1.030) 05/11/23 13:30 Urine Protein NEGATIVE mg/dL (NEGATIVE) 05/11/23 13:30 Urine Glucose (UA) NEGATIVE mg/dL (NEGATIVE) 05/11/23 13:30 Urine Ketones 15 mg/dL (NEGATIVE) H 05/11/23 13:30 Urine Occult Blood SMALL (NEGATIVE) H 05/11/23 13:30 Urine Nitrite NEGATIVE (NEGATIVE) 05/11/23 13:30 Urine Bilirubin NEGATIVE (NEGATIVE) 05/11/23 13:30 Urine Urobilinogen 0.2 (NORMAL) E.U./dL (NORMAL) 05/11/23 13:30 Ur Leukocyte Esterase NEGATIVE (NEGATIVE) 05/11/23 13:30 Urine RBC 6-10 /HPF (0-5) H 05/11/23 13:30 Urine WBC 6-10 /HPF (0-3) H 05/11/23 13:30 Urine WBC Clumps PRESENT 05/11/23 13:30 Ur Epithelial Cells FEW Renal Tubular /HPF (<= Few) 05/11/23 13:30 Ur Squamous Epith Cells RARE Squamous (<= Few) 05/11/23 13:30 Urine Bacteria Few /HPF (None Seen) 05/11/23 13:30 Urine Mucus Few Strands 05/11/23 13:30 Ur Microscopic Review INDICATED 05/11/23 13:30 Urine Culture Comments NOT INDICATED 05/11/23 13:30 Urine Osmolality 415 mOsmol/kg (.) 05/11/23 13:30 Urine Sodium 91.8 mmol/L 05/11/23 13:30 - Procedures Procedures: Procedures EXCISION OF ESOPHAGOGASTRIC JUNCTION, ENDO, DIAGN (04/26/19) EXCISION OF LOWER ESOPHAGUS, ENDO, DIAGN (04/26/19) EXCISION OF STOMACH, PYLORUS, ENDO, DIAGN (04/26/19) EXCISION OF UPPER ESOPHAGUS, ENDO, DIAGN (04/26/19) INSPECTION OF LOWER INTESTINAL TRACT, ENDO (04/26/19) ABX Reporting Has patient been on IV antibiotics over the past 48 hours?: No
[2023-05-12] MEDS: BUDESONIDE 0.5 MG/2 ML NEB INH PRN (20:53)
[2023-05-12] MEDS ORDERED: LORazepam 1 MG TABLET PO SCH (21:00)
[2023-05-12] MEDS: LORazepam 1 MG TABLET PO SCH (21:10)
[2023-05-12] MEDS: TAMSULOSIN 0.4 MG CAPSULE PO SCH (21:10)
[2023-05-13 06:02] LABS: BASOPHILS # (AUTO) 0.1 10^3/uL (0.0-0.1); BASOPHILS % (AUTO) 1.4 %; EOSINOPHILS # (AUTO) 0.1 10^3/uL (0.0-0.7); EOSINOPHILS % (AUTO) 2.7 %; HCT - HEMATOCRIT 39.4 % (42.0-52.0); HGB - HEMOGLOBIN 14.1 g/dL (14.0-18.0); LYMPHOCYTES # (AUTO) 0.7 10^3/uL (1.5-3.5); LYMPHOCYTES % (AUTO) 15.2 %; MEAN CORPUSCULAR HEMOGLOBIN 31.7 pg (27.0-31.0); MEAN CORPUSCULAR HGB CONC 35.8 g/dL (32.0-36.0); MEAN CORPUSCULAR VOLUME 88.5 fL (80.0-94.0); MEAN PLATELET VOLUME 9.4 fL (7.4-11.4); MONOCYTES # (AUTO) 0.5 10^3/uL (0.0-1.0); MONOCYTES % (AUTO) 11.3 %; NEUTROPHILS # (AUTO) 3.1 10^3/uL (1.5-6.6); NEUTROPHILS % (AUTO) 69.2 %; PLT - PLATELET COUNT 196 10^3/uL (130-450); RED BLOOD COUNT 4.45 10^6/uL (4.70-6.10); RED CELL DISTRIBUTION WIDTH 11.8 % (12.0-15.0); WHITE BLOOD COUNT 4.4 x10^3/uL (4.8-10.8)
[2023-05-13 06:12] LABS: CALCIUM 8.4 mg/dL (8.5-10.3); CREATININE 0.7 mg/dL (0.6-1.3); POTASSIUM 3.8 mmol/L (3.5-4.5)
[2023-05-13] MEDS ORDERED: ONDANSETRON ODT 4 MG TABLET TL SCH (07:00)
[2023-05-13] MEDS: BUDESONIDE 0.5 MG/2 ML NEB INH PRN ×2 (07:24→17:58)
[2023-05-13] MEDS: SODIUM CHLORIDE 0.9% 1,000 ML IV SCH ×2 (07:28→17:24)
[2023-05-13] MEDS: FAMOTIDINE 20 MG TABLET PO SCH (08:14)
[2023-05-13] MEDS: SODIUM CHLORIDE 1 GM TABLET PO SCH (08:15)
[2023-05-13] MEDS: ENOXAPARIN 40 MG/0.4 ML SYRINGE SUBQ SCH (08:15)
[2023-05-13] MEDS: LORazepam 0.5 MG TABLET PO SCH ×2 (08:15→15:58)
[2023-05-13] MEDS: polyethylene glycoL 3350 17 GM PACKET PO SCH (08:16)
[2023-05-13] MEDS: SODIUM CHLORIDE FLUSH 0.9% 10 ML SYRINGE IVP SCH ×2 (08:16→15:59)
--- NOTE | 2023-05-13 11:13 | PROVIDER PROGRESS NOTE ---
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 -- Sodium levels steadily increasing 124>127>126>127>131. -- Urine sodium osmo withnn normal range at 415 mOsmol/kg on 05/11 PLAN: -- Telemetry psych consulted to hold duloxetine. -- We will continue IV normal saline. -- We will continue Sodium chloride 1 gm PO tablet daily. --Trending sodium every 12 hours. --Monitor Urine osmolality to determine whether hyponatremia is ADH dependent or independent. (2) Anxiety Conclusion/Plan: -- As mentioned above, holding duloxetine. -- We will continue his ÁNGEL Ativan 0.5 mg BID to match home dosage. He will continue his Ativan PO 2.5 mg HS. (3) Epigastric Pain Conclusion/Plan: --Continues experiencing chest pain during inspiration and expiration. Worsens after meals. --Patient voiced to be FULL CODE with selective treatment PLAN: --Restart Protonix as patient describes returning nausea ever since stopping. Previously held due to risk of PPI causing SIADH. --Hold famotidine due to pateint being restarted on Protonix. --Start Zofran sublingual film TID AC. --Awaiting today's echo results for cardiac effusion differential. --Upcoming abdominal CTA scan scheduled at [facility] Qualifiers: Esophagitis presence: with esophagitis Esophagitis bleeding: without hemorrhage Qualified Code(s): K21.00 - Gastro-esophageal reflux disease with esophagitis, without bleeding (4) premature ventricular contractions Conclusion/Plan: --EKG shows PVC with no regular pattern --Magnesium on 05/13 showed normal level at 1.7 PLAN: --Monitoring on tele. --Correcting electrolytes. --Echo ordered for next available time. --May initiate Metoprolol in the future for PVC reduction. (5) Insomnia Conclusion/Plan: --Mostly likely due to Trazedone not resumed during beginning of hospital stay. --Patient self reports improved sleep overnight. PLAN: --Continue patient on home med dose of Trazedone 50 mg PO HS. --Continue Ativan dosage listed above. (6) hypertension Conclusion/Plan: --rise in BP likely due to increased sodium --hx of hypertension --hx of atenolol anxiety and blood pressure management. PT did not regularly take medication and stopped on his own. PLAN: --continue PO salt tablet as listed above and monitor BP. --May initiate metoprolol as listed above for chronic hypertension. (7) history of COPD Conclusion/Plan: --Saturating well on room air but in mild respiratory distress. --CXR negative. --D dimer levels are normal on 05/11. PLAN: --Continue fluticasone inhaler. --Reports he has a consultation with pulmonology. Qualifiers: Asthma severity: unspecified severity Asthma persistence: unspecified Asthma complication type: uncomplicated Qualified Code(s): J45.909 - Unspecifi ed asthma, uncomplicated (8) BPH (benign prostatic hyperplasia) Conclusion/Plan: --Had some urinary retention in the ED, however is now voiding without diffi culty. --Continue tamsulosin. - Current Meds Current Meds: Current Medications Generic Name Dose Route Start Last Admin Trade Name Freq PRN Reason Stop Dose Admin Acetaminophen 650 mg 05/11/23 15:20 05/12/23 06:33 Acetaminophen 325 Mg Tablet PO 650 mg Q4HR PRN Administration Pain 1 to 4, or Fever Budesonide 0.5 mg 05/12/23 19:07 05/13/23 07:24 Budesonide 0.5 Mg/2 Ml Neb INH 0.5 mg RTBID PRN Administration Wheezing Enoxaparin Sodium 40 mg 05/12/23 09:00 05/13/23 08:15 Enoxaparin 40 Mg/0.4 Ml Syringe SUBQ 40 mg DAILY ÁNGEL Administration Sodium Chloride 1,000 mls @ 100 mls/hr 05/11/23 16:00 05/13/23 07:28 Normal Saline 0.9% IV 100 mls/hr .Q10H ÁNGEL Administration Lorazepam 0.5 mg 05/13/23 09:00 05/13/23 08:15 Lorazepam 0.5 Mg Tablet PO 0.5 mg 0900,1540 ÁNGEL Administration Lorazepam 2.5 mg 05/12/23 21:00 05/12/23 21:10 Lorazepam 1 Mg Tablet PO 2.5 mg HS ÁNGEL Administration Petrolatum 1 applic 05/12/23 11:33 05/12/23 11:44 Petrolatum White 5 Gm Packet TOP 1 applic PRN PRN Administration Dry Lips Polyethylene Glycol 17 gm 05/12/23 12:00 05/13/23 08:16 Polyethylene Glycol 3350 17 Gm Packet PO Not Given DAILY ÁNGEL Prochlorperazine Maleate 5 mg 05/11/23 18:11 05/11/23 18:41 Prochlorperazine 5 Mg Tablet PO 5 mg Q6HR PRN Administration Nausea / Vomiting Sodium Chloride 10 ml 05/11/23 17:00 05/13/23 08:16 Sodium Chloride Flush 0.9% 10 Ml Syringe IVP Not Given 0100,0900,1700 ÁNGEL Sodium Chloride 1 gm 05/13/23 09:00 05/13/23 08:15 Sodium Chloride 1 Gm Tablet PO 1 gm DAILY ÁNGEL Administration Tamsulosin HCl 0.4 mg 05/12/23 21:00 05/12/23 21:10 Tamsulosin 0.4 Mg Capsule PO 0.4 mg HS ÁNGEL Administration - Lab Result Fish Bone Diagrams: 05/13/23 05:37 05/13/23 05:37 - Additional Planning Condition/Complexity: Improved Time Spent: 15-30 minutes Subjective - Subjective Patient Reports: Chest Pain (when breathing in and out. Pain 4/10 and worsens after meals. Denies palpitations.), Dizzines (when walking), Headache (with feelings of cloudiness), Heartburn, Nausea, Other (Not feeling like self. Reports improvement in sleep and slept through the night. Denies voiding issues.) Objective Vital Signs: Vital Signs - 24 hr 05/12/23 05/12/23 05/12/23 11:36 16:00 20:56 Temperature 36.4 C L 35.6 C L Heart Rate 73 Heart Rate [ 71 Brachial] Heart Rate [ 73 Monitoring electrodes] Respiratory 18 16 16 Rate Blood Pressure 142/66 H 149/79 H [Left Brachial artery] O2 Saturation 98 05/12/23 05/13/23 05/13/23 22:07 04:51 07:32 Temperature 36.3 C L 36.5 C Heart Rate 78 Heart Rate [ 65 68 Brachial] Heart Rate [ 16 L Monitoring electrodes] Respiratory 16 17 20 Rate Blood Pressure 140/90 H 131/82 H [Left Brachial artery] O2 Saturation 98 100 05/13/23 08:24 Temperature 36.2 C L Heart Rate Heart Rate [ 82 Brachial] Heart Rate [ Monitoring electrodes] Respiratory 18 Rate Blood Pressure 147/78 H [Left Brachial artery] O2 Saturation 100 Oxygen O2 Source Room air I&O (Last 24 Hrs): Intake and Output Totals x24h 05/11/23 05/12/23 05/13/23 23:59 23:59 23:59 Intake Total 1000 3008.334 1120 Output Total 4088 940 2692 Balance -550 2258.334 -380 General: Alert, Oriented x3, Cooperative, No acute distress HEENT: Atraumatic, PERRLA, EOMI, Other (No icterus) Neuro: Alert, Oriented Times 3 Cardiovascular: Regular rate, Normal S1, Normal S2, No murmurs, Other (quiet hear sounds due to COPD) Respiratory: Chest non-tender, No respiratory distress, Breath sounds nml Abdomen: Normal bowel sounds, Soft, No tenderness, No hepatospenomegaly, No masses, Other (light pressure on epigastric region causes pain) Extremities: No clubbing, No cyanosis, No edema, Normal pulses, No tenderness/swelling Skin: No rashes, No breakdown, No significant lesion - Results Results: Laboratory Results WBC 4.4 x10^3/uL (4.8-10.8) L 05/13/23 05:37 RBC 4.45 10^6/uL (4.70-6.10) L 05/13/23 05:37 Hgb 14.1 g/dL (14.0-18.0) 05/13/23 05:37 Hct 39.4 % (42.0-52.0) L 05/13/23 05:37 MCV 88.5 fL (80.0-94.0) 05/13/23 05:37 MCH 31.7 pg (27.0-31.0) H 05/13/23 05:37 MCHC 35.8 g/dL (32.0-36.0) 05/13/23 05:37 RDW 11.8 % (12.0-15.0) L 05/13/23 05:37 Plt Count 196 10^3/uL (130-450) 05/13/23 05:37 MPV 9.4 fL (7.4-11.4) 05/13/23 05:37 Neut # (Auto) 3.1 10^3/uL (1.5-6.6) 05/13/23 05:37 Lymph # (Auto) 0.7 10^3/uL (1.5-3.5) L 05/13/23 05:37 [place] # (Auto) 0.5 10^3/uL (0.0-1.0) 05/13/23 05:37 Eos # (Auto) 0.1 10^3/uL (0.0-0.7) 05/13/23 05:37 Baso # (Auto) 0.1 10^3/uL (0.0-0.1) 05/13/23 05:37 Absolute Nucleated RBC 0.00 x10^3/uL 05/13/23 05:37 Nucleated RBC % 0.0 /100WBC 05/13/23 05:37 D-Dimer 228.7 ng/mL (200.0-255.0) 05/11/23 18:15 Sodium 131 mmol/L (135-145) L 05/13/23 05:37 Potassium 3.8 mmol/L (3.5-4.5) 05/13/23 05:37 Chloride 101 mmol/L (101-111) 05/13/23 05:37 Carbon Dioxide 26 mmol/L (21-32) 05/13/23 05:37 Anion Gap 4.0 (6-13) L 05/13/23 05:37 BUN 10 mg/dL (6-20) 05/13/23 05:37 Creatinine 0.7 mg/dL (0.6-1.3) 05/13/23 05:37 Estimated GFR (MDRD) 111 (>89) 05/13/23 05:37 Glucose 93 mg/dL (74-104) 05/13/23 05:37 Estimat Average Glucose 105 mg/dL (70-100) H 05/12/23 05:04 Hemoglobin A1c % 5.3 % (4.27-6.07) 05/12/23 05:04 Calcium 8.4 mg/dL (8.5-10.3) L 05/13/23 05:37 Magnesium 1.7 mg/dL (1.7-2.3) 05/13/23 05:37 Total Bilirubin 0.7 mg/dL (0.2-1.0) 05/11/23 11:15 AST 20 IU/L (10-42) 05/11/23 11:15 ALT 14 IU/L (10-60) 05/11/23 11:15 Alkaline Phosphatase 73 IU/L (42-121) 05/11/23 11:15 Troponin I High Sens 4.0 ng/L (2.3-19.7) 05/11/23 12:19 Total Protein 6.7 g/dL (6.4-8.9) 05/11/23 11:15 Albumin 4.5 g/dL (3.2-5.5) 05/11/23 11:15 Globulin 2.2 g/dL (2.1-4.2) 05/11/23 11:15 Albumin/Globulin Ratio 2.0 (1.0-2.2) 05/11/23 11:15 Lipase 28 U/L (11-82) 05/11/23 11:15 Urine Color YELLOW 05/11/23 13:30 Urine Clarity CLEAR (CLEAR) 05/11/23 13:30 Urine pH 7.5 PH (5.0-7.5) 05/11/23 13:30 Ur Specific [place] 1.015 (1.002-1.030) 05/11/23 13:30 Urine Protein NEGATIVE mg/dL (NEGATIVE) 05/11/23 13:30 Urine Glucose (UA) NEGATIVE mg/dL (NEGATIVE) 05/11/23 13:30 Urine Ketones 15 mg/dL (NEGATIVE) H 05/11/23 13:30 Urine Occult Blood SMALL (NEGATIVE) H 05/11/23 13:30 Urine Nitrite NEGATIVE (NEGATIVE) 05/11/23 13:30 Urine Bilirubin NEGATIVE (NEGATIVE) 05/11/23 13:30 Urine Urobilinogen 0.2 (NORMAL) E.U./dL (NORMAL) 05/11/23 13:30 Ur Leukocyte Esterase NEGATIVE (NEGATIVE) 05/11/23 13:30 Urine RBC 6-10 /HPF (0-5) H 05/11/23 13:30 Urine WBC 6-10 /HPF (0-3) H 05/11/23 13:30 Urine WBC Clumps PRESENT 05/11/23 13:30 Ur Epithelial Cells FEW Renal Tubular /HPF (<= Few) 05/11/23 13:30 Ur Squamous Epith Cells RARE Squamous (<= Few) 05/11/23 13:30 Urine Bacteria Few /HPF (None Seen) 05/11/23 13:30 Urine Mucus Few Strands 05/11/23 13:30 Ur Microscopic Review INDICATED 05/11/23 13:30 Urine Culture Comments NOT INDICATED 05/11/23 13:30 Urine Osmolality 415 mOsmol/kg (.) 05/11/23 13:30 Urine Sodium 91.8 mmol/L 05/11/23 13:30 - Procedures Procedures: Procedures EXCISION OF ESOPHAGOGASTRIC JUNCTION, ENDO, DIAGN (04/26/19) EXCISION OF LOWER ESOPHAGUS, ENDO, DIAGN (04/26/19) EXCISION OF STOMACH, PYLORUS, ENDO, DIAGN (04/26/19) EXCISION OF UPPER ESOPHAGUS, ENDO, DIAGN (04/26/19) INSPECTION OF LOWER INTESTINAL TRACT, ENDO (04/26/19)
[2023-05-13] MEDS: ONDANSETRON ODT 4 MG TABLET TL SCH ×2 (11:16→15:58)
[2023-05-13] MEDS: PANTOPRAZOLE 40 MG TABLET PO SCH (15:59)
[2023-05-13 16:44] LABS: BILIRUBIN,URINE NEGATIVE (NEGATIVE); GLUCOSE, URINE (UA) NEGATIVE (NEGATIVE); KETONES,URINE (UA) NEGATIVE (NEGATIVE); LEUKOCYTE ESTERASE, URINE NEGATIVE (NEGATIVE); NITRITE,URINE NEGATIVE (NEGATIVE); OCCULT BLOOD,URINE TRACE-INTA (NEGATIVE); PROTEIN,URINE NEGATIVE (NEGATIVE); UROBILINOGEN,URINE 0.2 (NORMAL) E.U./dL (NORMAL)
[2023-05-13 16:47] LABS: CLARITY,URINE CLEAR (CLEAR)
[2023-05-13 16:59] LABS: BACTERIA,URINE None Seen /HPF (None Seen); RBC,URINE 0-5 /HPF (0-5); SQUAMOUS EPITHELIAL CELL,UR NONE SEEN (<= Few); WBC,URINE 0-3 /HPF (0-3)
[2023-05-13] MEDS: LORazepam 1 MG TABLET PO SCH (21:28)
[2023-05-13] MEDS: TAMSULOSIN 0.4 MG CAPSULE PO SCH (21:28)
[2023-05-14] MEDS: SODIUM CHLORIDE FLUSH 0.9% 10 ML SYRINGE IVP SCH ×2 (01:10→08:04)
[2023-05-14] MEDS: SODIUM CHLORIDE 0.9% 1,000 ML IV SCH (03:29)
[2023-05-14] MEDS: ACETAMINOPHEN 325 MG TABLET PO PRN (04:41)
[2023-05-14 05:23] LABS: BASOPHILS # (AUTO) 0.1 10^3/uL (0.0-0.1); EOSINOPHILS # (AUTO) 0.2 10^3/uL (0.0-0.7); EOSINOPHILS % (AUTO) 2.9 %; HCT - HEMATOCRIT 41.4 % (42.0-52.0); HGB - HEMOGLOBIN 14.4 g/dL (14.0-18.0); LYMPHOCYTES # (AUTO) 0.7 10^3/uL (1.5-3.5); LYMPHOCYTES % (AUTO) 14.1 %; MEAN CORPUSCULAR HGB CONC 34.8 g/dL (32.0-36.0); MEAN CORPUSCULAR VOLUME 89.2 fL (80.0-94.0); MEAN PLATELET VOLUME 9.3 fL (7.4-11.4); MONOCYTES # (AUTO) 0.6 10^3/uL (0.0-1.0); MONOCYTES % (AUTO) 11.6 %; NEUTROPHILS # (AUTO) 3.7 10^3/uL (1.5-6.6); NEUTROPHILS % (AUTO) 70.2 %; PLT - PLATELET COUNT 191 10^3/uL (130-450); RED BLOOD COUNT 4.64 10^6/uL (4.70-6.10); RED CELL DISTRIBUTION WIDTH 11.8 % (12.0-15.0); WHITE BLOOD COUNT 5.2 x10^3/uL (4.8-10.8)
[2023-05-14 05:33] LABS: CALCIUM 8.8 mg/dL (8.5-10.3); CREATININE 0.7 mg/dL (0.6-1.3); POTASSIUM 3.7 mmol/L (3.5-4.5)
[2023-05-14] MEDS: PANTOPRAZOLE 40 MG TABLET PO SCH (06:21)
[2023-05-14] MEDS: ONDANSETRON ODT 4 MG TABLET TL SCH (06:22)
[2023-05-14] MEDS: BUDESONIDE 0.5 MG/2 ML NEB INH PRN (06:57)
[2023-05-14] MEDS ORDERED: GLYCOPYRROLATE 1 MG/5 ML VIAL ONE (07:22)
[2023-05-14] MEDS ORDERED: PROPOFOL 500 MG/50 ML 500 MG/50 ML VIAL ONE (07:22)
[2023-05-14] MEDS: polyethylene glycoL 3350 17 GM PACKET PO SCH (08:03)
[2023-05-14] MEDS: SODIUM CHLORIDE 1 GM TABLET PO SCH (08:03)
[2023-05-14] MEDS: LORazepam 0.5 MG TABLET PO SCH (08:03)
[2023-05-14] MEDS: ENOXAPARIN 40 MG/0.4 ML SYRINGE SUBQ SCH (08:04)
[2023-05-14 08:48] VITALS: BP 135/85; O2SAT 100
--- NOTE | 2023-05-14 09:20 | Discharge Plan ---
Discharge Plan Problem Reviewed?: Yes Disposition: Home, Self Care Condition: Fair Prescriptions: ONDANSETRON ODT Prepack 2 [ZOFRAN ODT Prepack 2] 2 mg TL TID PRN #30 tablet PRN Reason: Nausea / Vomiting Diet: Regular (You should eat salty foods. Please drink less plain water. Please drink fluids that contain electrolytes (like broths, Gatorade, Pedialyte, juices), to avoid getting low serum sodium levels.) Activity Restrictions: Activity as Tolerated Shower Restrictions: No Driving Restrictions: No Instruction Topics: Hyponatremia Dc Ch Health Concerns: You were hospitalized to correct a very low serum sodium level, which made you confused. We also tried to adjust your medicines to treat the nausea that you develop after meals. Please continue to have the work-up done to learn why you get the upper abdomen and chest pain with breathing, which is occurs after meals. Get the CT scan done, that has been scheduled. Plan of Treatment: Please resume all your usual pre-hospital medications and management, except stop Duloxetine and remember about drinking less plain water. A new prescription for Zofran (Ondonsteron) trans lingual patches, to take before meals or as needed, has been electronically sent to your [facility] pharmacy in [place]. Care Goals: Improvement in symptoms and stabilization are the goals. Assessment: The patient understands and is agreeable with the plan. Additional Instructions or Follow Up instructions: If you have new or worsening symptoms, call your PCP for advice or come to the ER. No Smoking: If you smoke, Please STOP! Call for help. Follow-up with: Gisselle Eubanks PA [Primary Care Provider] -
--- NOTE | 2023-05-15 11:48 | DISCHARGE SUMMARY ---
Discharge Summary Admit Date: 05/11/23 Discharge Date: 05/15/23 Discharging Provider: Dr Karen Benavidez Primary Care Provider: DAI Eubanks Condition at Discharge: Fair Discharge Disposition: 01 Home, Self Care - HPI History of Present Illness: Patient is a 72-year-old male with a past medical history of pleuritic pain after eating, GERD, s/p Anette fundoplication, anxiety who presented to the ED due to 3 days of worsening shortness of breath and nausea. In the ED he had a negative chest x-ray. His initial sodium was noted to be 121. He was given a bolus of normal saline and his sodium increased to 123. EKG showed trigeminy. During my evaluation patient discussed with me his past medical history. He has been dealing with pleuritic pain after eating. Initially it was believed to be GERD and he was started on a PPI and underwent Anette fundoplication which did not appear to help. His combat systems engineer initiated him on clonazepam a short while ago. His psychiatrist transitioned him onto Ativan 2 weeks prior to this admission. In conjunction with his psychiatrist and PCP, he was started on duloxetine 3 days ago for anxiety. Patient reports that immediately after starting the duloxetine he began to feel unwell and nauseated. He did not take the medication today. Patient vital signs are stable. Denies any chest pain or palpitations. He has not been on any other psychiatric medications in recent history. He is being admitted to treat Hyponatremia and N/V w/ dehydration. - HOSPITAL COURSE Hospital Course: (1) Hyponatremia Likely frim SIADH secondary to Duloxetine. He was put on free water restriction and got saline iv and oral salt tablets. His sodium levels steadily increased over several days 124>127>126>127>131>133 at discharge. Telepsych was consulted, who advised to stop Duloxetine, which was done. (2) Anxiety He did not get Duloxetine. He received scheduled Ativan 0.5 mg BID to match his home dose and his Ativan PO 2.5 mg at hs. (3) Epigastric Pain He continued experiencing chest pain during inspiration worsened after eating meals. We kept him on his Protonix, offered Zofran sublingual film TID before meals which helped slightly. An Echo was done looking for pericardial effusion and it showed none. He has an upcoming abdominal CTA scan scheduled, looking for poss gut ischemia, he described. (4) Premature ventricular contractions EKG showed frequent PVCs with no regular pattern. These were asymptomatic. His K was low and was corrected and Mg level was low-normal. The Echo showed a normal LVEF. (5) Insomnia This improved when his Ativan doses and his Trazadone at hs were resumed. (6) Hypertension Elevated BP likely due to treatment with sodium. He did not need a new BP prescription. (7) History of COPD Not in exacerbation while here. Given the pleuritic pain, he said he has an upcoming Pulmonary visit. (8) BPH (benign prostatic hyperplasia) Had some urinary retention in the ED. We continued his Tamsulosin. - ALLERGIES Allergies/Adverse Reactions: Allergies Allergy/AdvReac Type Severity Reaction Status Date / Time No Known Drug Allergies Allergy Verified 09/12/22 12:54 - MEDICATIONS Home Medications: Ambulatory Orders Medication Instructions Recorded Confirmed Tamsulosin [Flomax] 1 tab PO HS 07/14/20 05/12/23 traZODone [Desyrel] 50 mg PO HS PRN 07/14/20 05/12/23 Fluticasone 110 Mcg [Flovent] 2 puffs INH BID 09/08/20 05/11/23 LORazepam [Ativan] 0.5 mg PO Q6H 05/11/23 05/11/23 LORazepam [Ativan] 2.5 mg PO HS 05/11/23 05/11/23 Pantoprazole Sodium 20 mg PO DAILY 05/11/23 05/11/23 ONDANSETRON ODT Prepack 2 [ZOFRAN 2 mg TL TID PRN #30 tablet 05/14/23 ODT Prepack 2] - PHYSICAL EXAM AT DISCHARGE General Appearance: positive: No acute distress, Alert Eyes Bilateral: positive: Normal inspection, EOMI ENT: positive: ENT inspection nml, No signs of dehydration Neck: positive: Nml inspection, No JVD Respiratory: positive: No respiratory distress, Breath sounds nml Cardiovascular: positive: Regular rate & rhythm, No murmur, Extrasystoles Abdomen: positive: Non-tender, Nml bowel sounds, No distention Skin: positive: Warm, Dry Extremities: positive: Non-tender, No pedal edema Neurologic/Psychiatric: positive: Oriented x3, CN's nml (2-12), Motor nml - LABS Result Diagrams: 05/14/23 04:58 05/14/23 04:58 - DIAGNOSTIC IMAGING Diagnostic Imaging Results: Final report reviewed - TIME SPENT Time Spent in Discharge (Minutes): 35
== END 2023-05-14 11:52 | disposition home or self-care (01) | DRG 645 ==
LOC: ED 10:46 → MS2 15:20
PROVIDERS: ADMIT Family Medicine; ATTEND Internal Medicine
DX: E87.1 Hypo-osmolality and hyponatremia (principal); R11.0 Nausea; E22.2 Syndrome of inappropriate secretion of antidiuretic hormone; F41.9 Anxiety disorder, unspecified; R10.13 Epigastric pain; R07.81 Pleurodynia; I49.3 Ventricular premature depolarization; G47.00 Insomnia, unspecified; I10 Essential (primary) hypertension; J44.9 Chronic obstructive pulmonary disease, unspecified; N40.1 Benign prostatic hyperplasia with lower urinary tract symptoms; R33.8 Other retention of urine; Z98.84 Bariatric surgery status; K21.00 Gastro-esophageal reflux disease with esophagitis, without bleeding
CPT/HCPCS: 36415; 71045; 80048; 80053; 81001; 83036; 83690; 83735; 83935; 84295; 84300; 84484; 85025; 85379; 93005; 93306; 94640; 96360; 99285; A9270; J1650; J7626; J8499; Q0162; 81003; 87086

== ENCOUNTER 2023-05-17 09:40 | Outpatient (CLI) | payer MEDICARE ==
[2023-05-17] MEDS ORDERED: iohexoL-300 100 ML VIAL IVP ONE (13:02)
--- NOTE | 2023-05-17 14:58 | CT Report ---
PROCEDURE: ANGIO ABDOMEN/PELVIS W INDICATIONS: ABD PAIN CONTRAST: 100ml omni 300 TECHNIQUE: After the administration of intravenous contrast, 2.5 mm thick sections acquired from the diaphragm t o the symphysis. 10 mm maximum-intensity projection (MIP) reformats were then acquired. For radiati on dose reduction, the following was used: automated exposure control, adjustment of mA and/or kV ac cording to patient size. COMPARISON: Chest angioma which 16/10/2020 FINDINGS: Image quality: Excellent. Aorta: Widely patent. Scattered atherosclerotic disease. No aneurysm or dissection identified. Mesenteric arteries: Celiac trunk, superior and inferior mesenteric arteries appear patent. Right pelvic arteries: Pelvic arteries are widely patent Left pelvic arteries: Pelvic arteries are widely patent Extravascular soft tissues: Lung bases are clear. Heart size is normal. Liver and spleen are wali l in size and enhancement. Subcentimeter cystic findings of the hepatic dome. Gallbladder is unremar kable. Biliary system is non dilated. Pancreas enhances normally. No adrenal nodules. Kidneys are normal in size and enhancement, without hydronephrosis. Non opacified bowel loops are normal in wal l thickness and caliber. No free fluid or air. No retroperitoneal or mesenteric adenopathy. No terra tral hernias. No suspicious bony lesions. No vertebral body compression fractures. Disc height los s at L4-L5 and L5-S1. Large stool volume throughout the colon. Hiatal hernia. IMPRESSION: 1.No aortic dissection, aneurysm, or high-grade stenosis. 2.Abdominal and pelvic arteries are widely patent. 3.Large stool volume. 4.Hiatal hernia. Reviewed by: Pato Larsen MD on 05/17/2023 1:56 PM [place] Approved by: Pato Larsen MD on 05/17/2023 1:56 PM [place] Station ID: [id number]
== END 2023-05-17 09:41 | disposition home or self-care (01) ==
LOC: DI 09:40
PROVIDERS: ATTEND Physician Assistant
DX: R10.9 Unspecified abdominal pain (principal); K44.9 Diaphragmatic hernia without obstruction or gangrene
CPT/HCPCS: 74174; Q9967

== ENCOUNTER 2023-05-19 10:37 | Outpatient (CLI) | payer MEDICARE ==
[2023-05-19 12:42] LABS: CALCIUM 9.1 mg/dL (8.5-10.3); CREATININE 0.8 mg/dL (0.6-1.3); POTASSIUM 4.6 mmol/L (3.5-4.5)
== END 2023-05-19 10:38 | disposition home or self-care (01) ==
LOC: LAB.N 10:37
PROVIDERS: ATTEND Family Medicine
DX: E87.1 Hypo-osmolality and hyponatremia (principal)
CPT/HCPCS: 36415; 80048

== ENCOUNTER 2023-05-30 09:33 | Outpatient (CLI) | payer MEDICARE ==
[2023-05-30 19:33] LABS: CALCIUM 9.3 mg/dL (8.5-10.3); CREATININE 0.7 mg/dL (0.6-1.3); POTASSIUM 4.5 mmol/L (3.5-4.5)
== END 2023-05-30 09:34 | disposition home or self-care (01) ==
LOC: LAB.N 09:33
PROVIDERS: ATTEND Physician Assistant Medical
DX: E87.1 Hypo-osmolality and hyponatremia (principal); N40.1 Benign prostatic hyperplasia with lower urinary tract symptoms; N13.8 Other obstructive and reflux uropathy
CPT/HCPCS: 36415; 80048

== ENCOUNTER 2023-10-13 20:49 | Emergency (ER) | payer MEDICARE ==
[2023-10-13 21:06] VITALS: BP 175/100; O2SAT 100
--- NOTE | 2023-10-13 21:08 | ED Physician Documentation ---
History of Present Illness - Stated complaint Stated Complaint: ACCIDENTAL OD - Chief complaint Chief Complaint: General - History obtained from History obtained from: Patient - Additonal information Additional information: He took an extra puff is his fluticasone inhaler at home and then looked on the Internet and came to the emergency department for evaluation. PD PAST MEDICAL HISTORY - Past Medical History Past Medical History: Yes Cardiovascular: Hypertension Respiratory: Pneumonia Neuro: None Endocrine/Autoimmune: None GI: GERD, Colon polyps, Hepatitis, Diverticulitis : Benign prostate hypertrophy HEENT: None Psych: None Musculoskeletal: None Derm: None - Past Surgical History Past Surgical History: Yes HEENT: Rhinoplasty, Tonsil/Adenoidectomy - Present Medications Home Medications: Ambulatory Orders Medication Instructions Recorded Confirmed Tamsulosin [Flomax] 1 tab PO HS 07/14/20 05/12/23 traZODone [Desyrel] 50 mg PO HS PRN 07/14/20 10/13/23 Fluticasone 110 Mcg [Flovent] 2 puffs INH BID 09/08/20 10/13/23 LORazepam [Ativan] 0.5 mg PO Q6H 05/11/23 05/11/23 LORazepam [Ativan] 2.5 mg PO HS 05/11/23 05/11/23 Pantoprazole Sodium 20 mg PO DAILY 05/11/23 05/11/23 ONDANSETRON ODT Prepack 2 [ZOFRAN 2 mg TL TID PRN #30 tablet 05/14/23 ODT Prepack 2] - Allergies Allergies/Adverse Reactions: Allergies Allergy/AdvReac Type Severity Reaction Status Date / Time No Known Drug Allergies Allergy Verified 10/13/23 20:57 - Social History Does the pt smoke?: No Smoking Status: Never smoker Does the pt drink ETOH?: No Does the pt have substance abuse?: No - Immunizations Immunizations are current?: Yes - POLST Patient has POLST: No PD ED PE NORMAL - Vitals Vital signs reviewed: Yes - General General: Alert and oriented X 3, No acute distress - Neuro Neuro: Alert and oriented X 3, Normal speech - Psych Psych: Normal mood, Normal affect Results - Vitals Vitals: Vital Signs - 24 hr 10/13/23 20:52 Temperature 36.3 C L Heart Rate 78 Respiratory 19 Rate Blood Pressure 175/100 H O2 Saturation 100 Oxygen O2 Source Room air PD Medical Decision Making - ED course ED course: I reassured him that taking an extra puff or 2 of fluticasone inhaler was completely benign. Departure - Departure Disposition: 01 Home, Self Care Clinical Impression: Accidental overdose Qualifiers: Encounter type: initial encounter Qualified Code(s): T50.901A - Poisoning by unspecified drugs, medicaments and biological substances, accidental (unintentional), initial encounter Condition: Good Record reviewed to determine appropriate education?: Yes Instructions: ED Overdose Accidental Comments: Taking extra doses of fluticasone is very benign and is not dangerous to you at all. For recurrent issues similar to this you can always call poison control for guidance,
== END 2023-10-13 21:15 | disposition home or self-care (01) ==
LOC: ED 20:49
DX: Z13.89 Encounter for screening for other disorder (principal); T50.901A Poisoning by unspecified drugs, medicaments and biological substances, accidental (unintentional), initial encounter
CPT/HCPCS: 99281; 99283

== ENCOUNTER 2023-11-29 14:50 | Emergency (ER) | payer MEDICARE ==
[2023-11-29 15:06] VITALS: O2SAT 100
--- NOTE | 2023-11-29 15:14 | ED Physician Documentation ---
PD HPI DYSPNEA - Stated complaint Stated Complaint: SOA - Chief complaint Chief Complaint: Resp - History obtained from History obtained from: Patient - Additional information Additional information: He states he is having a severe asthma attack. He cut down on his Symbicort about 10 days ago thinking it was causing painful breathing. Over the last couple of days has had increased shortness of breath. Uses albuterol inhaler once today which was not helpful. He is coughing which is generally nonproductive. No fevers. No chest pain. PD PAST MEDICAL HISTORY - Past Medical History Past Medical History: Yes Cardiovascular: Hypertension Respiratory: Asthma, Pneumonia Neuro: None Endocrine/Autoimmune: None GI: GERD, Colon polyps, Hepatitis, Diverticulitis : Benign prostate hypertrophy HEENT: None Psych: None Musculoskeletal: None Derm: None - Past Surgical History Past Surgical History: Yes General: Hiatal hernia repair HEENT: Rhinoplasty, Tonsil/Adenoidectomy - Present Medications Home Medications: Ambulatory Orders Medication Instructions Recorded Confirmed Tamsulosin [Flomax] 1 tab PO HS 07/14/20 05/12/23 traZODone [Desyrel] 50 mg PO HS PRN 07/14/20 10/13/23 Fluticasone 110 Mcg [Flovent] 2 puffs INH BID 09/08/20 10/13/23 LORazepam [Ativan] 0.5 mg PO Q6H 05/11/23 05/11/23 LORazepam [Ativan] 2.5 mg PO HS 05/11/23 05/11/23 Pantoprazole Sodium 20 mg PO DAILY 05/11/23 05/11/23 ONDANSETRON ODT Prepack 2 [ZOFRAN 2 mg TL TID PRN #30 tablet 05/14/23 ODT Prepack 2] methylPREDNISolone [Medrol Dose 1 each PO .PACKAGEINSTRUCTIONS 6 11/29/23 Pack] Days #1 each - Allergies Allergies/Adverse Reactions: Allergies Allergy/AdvReac Type Severity Reaction Status Date / Time No Known Drug Allergies Allergy Verified 11/29/23 15:01 - Social History Does the pt smoke?: No Smoking Status: Former smoker Does the pt drink ETOH?: No Does the pt have substance abuse?: No - Immunizations Immunizations are current?: Yes - POLST Patient has POLST: No PD ED PE NORMAL - Vitals Vital signs reviewed: Yes - General General: Alert and oriented X 3, No acute distress - Cardiac Cardiac: RRR, No murmur - Respiratory Respiratory: Other (Moderate air motion with expiratory wheezes bilaterally. No focal findings. Speaking full sentences but mildly tachypneic.) - Extremities Extremities: No edema, No calf tenderness / cord - Neuro Neuro: Alert and oriented X 3 Results - Vitals Vitals: Vital Signs - 24 hr 11/29/23 11/29/23 15:01 15:26 Temperature 36.5 C Heart Rate 79 68 Respiratory 24 15 Rate Blood Pressure 154/94 H O2 Saturation 100 Oxygen O2 Source Room air PD Medical Decision Making - ED course ED course: 72-year-old gentleman presents with asthma exacerbation. Alternative causes of shortness of breath are considered but considered exquisitely unlikely given lack of tachycardia, hypoxia, chest pain and otherwise typical symptoms. After a DuoNeb and intramuscular dexamethasone (he prefers the IM route) he was still with a bit of wheezing but feeling much better and he was given 1 more albuterol neb prior to discharge. Departure - Departure Disposition: 01 Home, Self Care Clinical Impression: Asthma Condition: Good Record reviewed to determine appropriate education?: Yes Instructions: Asthma Dc Prescriptions: methylPREDNISolone [Medrol Dose Pack] 1 each PO .PACKAGEINSTRUCTIONS 6 Days #1 each Comments: [facility] in [place]. Call your doctor to arrange a follow-up appointment, make the next available appointment. In the interim, return anytime if worse or if new symptoms develop. You should go back to your prior dosing of Symbicort. Forms: PCP List
[2023-11-29] MEDS: IPRATROPIUM/ALBUTEROL 3 ML NEB INH STA (15:22)
[2023-11-29] MEDS: DEXAMETHASONE 10 MG/ML VIAL IM STA (15:31)
[2023-11-29] MEDS: ALBUTEROL NEB 2.5 MG/3 ML INH STA (16:10)
[2023-11-29 16:39] VITALS: BP 159/87
== END 2023-11-29 16:34 | disposition home or self-care (01) ==
LOC: ED 14:50
DX: J45.901 Unspecified asthma with (acute) exacerbation (principal); I10 Essential (primary) hypertension; N40.0 Benign prostatic hyperplasia without lower urinary tract symptoms; Z86.010 Personal history of colon polyps; Z87.19 Personal history of other diseases of the digestive system; Z79.899 Other long term (current) drug therapy
CPT/HCPCS: 94640; 96372; 99283; 99284

== ENCOUNTER 2023-12-21 07:12 | Outpatient (CLI) | payer MEDICARE ==
[2023-12-21 12:20] LABS: BASOPHILS # (AUTO) 0.1 10^3/uL (0.0-0.1); BASOPHILS % (AUTO) 1.1 %; EOSINOPHILS # (AUTO) 0.1 10^3/uL (0.0-0.7); EOSINOPHILS % (AUTO) 1.9 %; HCT - HEMATOCRIT 45.1 % (42.0-52.0); HGB - HEMOGLOBIN 14.8 g/dL (14.0-18.0); LYMPHOCYTES # (AUTO) 0.7 10^3/uL (1.5-3.5); LYMPHOCYTES % (AUTO) 15.6 %; MEAN CORPUSCULAR HEMOGLOBIN 31.1 pg (27.0-31.0); MEAN CORPUSCULAR HGB CONC 32.8 g/dL (32.0-36.0); MEAN CORPUSCULAR VOLUME 94.7 fL (80.0-94.0); MEAN PLATELET VOLUME 9.8 fL (7.4-11.4); MONOCYTES # (AUTO) 0.4 10^3/uL (0.0-1.0); NEUTROPHILS # (AUTO) 3.4 10^3/uL (1.5-6.6); NEUTROPHILS % (AUTO) 73.2 %; PLT - PLATELET COUNT 214 10^3/uL (130-450); RED BLOOD COUNT 4.76 10^6/uL (4.70-6.10); RED CELL DISTRIBUTION WIDTH 12.4 % (12.0-15.0); WHITE BLOOD COUNT 4.6 x10^3/uL (4.8-10.8)
[2023-12-21 13:00] LABS: ALBUMIN 4.5 g/dL (3.2-5.5); ALBUMIN/GLOBULIN RATIO 2.4 (1.0-2.2); ALKALINE PHOSPHATASE 128 IU/L (42-121); ALT ALANINE AMINOTRANSFERASE 18 IU/L (10-60); AST ASPARTATE AMINOTRANSFERASE 21 IU/L (10-42); BILIRUBIN,TOTAL 0.7 mg/dL (0.2-1.0); BUN - BLOOD UREA NITROGEN 13 mg/dL (6-20); CALCIUM 9.5 mg/dL (8.5-10.3); CARBON DIOXIDE - CO2 30 mmol/L (21-32); CHLORIDE 97 mmol/L (101-111); CHOL/HDL RATIO 2.9 (<5.0); CHOLESTEROL 200 mg/dL; CREATININE 0.8 mg/dL (0.6-1.3); GFR - MDRD 94 (>89); GLUCOSE 101 mg/dL (74-104); HDL CHOLESTEROL 69 mg/dL; LDL CHOLESTEROL,CALCULATED 110 mg/dL; LDL/HDL RATIO 1.6 (<3.6); SODIUM 131 mmol/L (135-145); TOTAL PROTEIN 6.4 g/dL (6.4-8.9); TRIGLYCERIDES 103 mg/dL (48-352); VLDL CHOLESTEROL 21 mg/dL
[2023-12-21 13:09] LABS: THYROID STIMULATING HORMONE 0.87 uIU/mL (0.34-5.60)
== END 2023-12-21 07:13 | disposition home or self-care (01) ==
LOC: LAB.N 07:12
PROVIDERS: ATTEND Physician Assistant
DX: E78.1 Pure hyperglyceridemia (principal); E78.5 Hyperlipidemia, unspecified; Z12.5 Encounter for screening for malignant neoplasm of prostate; I10 Essential (primary) hypertension
CPT/HCPCS: 36415; 80053; 80061; 84443; 85025; G0103; 83721; 84153

== ENCOUNTER 2024-01-22 07:13 | Outpatient (CLI) | payer MEDICARE | END 2024-01-22 07:14 | disposition home or self-care (01) | LOC: LAB.N 07:13 | PROVIDERS: ATTEND Urology | DX: R97.20 Elevated prostate specific antigen [PSA] (principal) | CPT/HCPCS: 36415; 84153 ==

== ENCOUNTER 2024-03-12 09:26 | Outpatient (CLI) | payer MEDICARE ==
[2024-03-12] MEDS ORDERED: GADOTERATE MEGLUMINE 7.5 MMOL/15 ML VIAL ONE (10:22)
[2024-03-12 10:42] LABS: CREATININE 0.7 mg/dL (0.6-1.3)
[2024-03-12] MEDS: GADOTERATE MEGLUMINE 7.5 MMOL/15 ML VIAL IVP ONE (11:37)
--- NOTE | 2024-03-14 09:12 | MRI Report ---
PROCEDURE: Pelvis W/WO INDICATIONS: ELEVATED PSA CONTRAST: CLARICAN 14.4 TECHNIQUE: Coronal ultra fast SE, axial T1 FSE with fat saturation, 3-plane nonbreath-hold T2 FSE. After the ad ministration of contrast, dynamic axial, delayed axial and coronal ultra fast GE or 2-D spoiled GE wi th fat saturation through the pelvis. Optional diffusion weighted imaging and ADC may be performed. COMPARISON: None. FINDINGS: Image quality: Diffusion weighted and dynamic contrast enhanced images are diagnostic. Prostate: Gland size is 5.8 x 4.4 x 4.9 cm; ellipsoid gland volume is 65 mL. PSA Density: 0.0736 Transitional zone heterogenous nodules are present, either well encapsulated or mostly encapsulated, compatible with PI-RADS 1 or 2 likely BPH nodules. These findings can obscure small cancers. The seminal vesicles are clear. There is some BPH nodules that appear extruded into the peripheral zo ne, and around the angle of the seminal vesicles. Multiple areas of intrinsic T1 signal in the transitional zone, probably from prior hemorrhage. Genitourinary system: Trabeculated bladder likely from chronic obstruction. Bowel and peritoneum: Colonic diverticula. Nonobstructed distal small bowel. No pathologic ascites Nodes and vessels: No aneurysmal vessel or pathologic lymph nodes by size criteria identified in the [id number] Soft tissues: Pelvic solo unremarkable Bones: Unremarkable IMPRESSION: No PI-RADS 4 or 5 lesions suspicious for a clinically significant malignancy. The predominant abnormality is BPH and prostatomegaly. Consider continued imaging and PSA surveillanc e if clinically indicated. Other findings above. Reviewed by: Vinod Duong MD on 03/14/2024 9:10 AM PDT Approved by: Vinod Duong MD on 03/14/2024 9:10 AM PDT Station ID: [id number]
== END 2024-03-12 09:27 | disposition home or self-care (01) ==
LOC: LAB 09:26
PROVIDERS: ATTEND Urology
DX: R97.20 Elevated prostate specific antigen [PSA] (principal); N40.0 Benign prostatic hyperplasia without lower urinary tract symptoms
CPT/HCPCS: 36415; 82565